=== PATIENT | female | born 1950 | race Caucasian/White ===

== ENCOUNTER → 2023-10-23 07:30 | Outpatient (REF) | payer MEDICARE, OTHER, SELFPAY ==
[2023-10-23 08:03] LABS: Hematocrit 40.4 % (37.0-47.0)
[2023-10-23 08:27] LABS: Protein/creatinine Ratio 0.6; Urine Protein 42 mg/dl
[2023-10-23 09:04] LABS: Albumin 3.8 g/dl (3.5-5.0); Blood Urea Nitrogen 40 mg/dl (7-17); Calcium 9.7 mg/dl (8.4-10.2); Carbon Dioxide 27 mmol/L (22-30); Chloride 100 mmol/L (98-107); Glucose 227 mg/dl (70-99); Phosphorus 4.8 mg/dl (2.5-4.5); Potassium 4.2 mmol/L (3.5-5.1); Sodium 138 mmol/L (135-145); eGFR 31.08
[2023-10-26 10:40] LABS: Intact PTH 112.1 pg/ml (13.6-85.8)
== END ==
LOC: REG 07:30
PROVIDERS: ATTENDING PHYSICIAN Internal Medicine Gastroenterology; FAMILY PHYSICIAN Family Medicine
DX: D50.8 Other iron deficiency anemias (principal); Z87.448 Personal history of other diseases of urinary system; N28.9 Disorder of kidney and ureter, unspecified; I10 Essential (primary) hypertension; D50.9 Iron deficiency anemia, unspecified
CPT/HCPCS: 36415; 80069; 82570; 83970; 84156; 85014; 85018

== ENCOUNTER → 2023-11-11 07:22 | Outpatient (REF) | payer MEDICARE, OTHER, SELFPAY ==
[2023-11-11 07:53] LABS: Hemoglobin 14.6 g/dL (12.0-16.0)
== END ==
LOC: REG 07:22
PROVIDERS: ATTENDING PHYSICIAN Internal Medicine Gastroenterology; FAMILY PHYSICIAN Family Medicine
DX: D50.8 Other iron deficiency anemias (principal)
CPT/HCPCS: 36415; 85018

== ENCOUNTER → 2023-12-17 07:32 | Outpatient (REF) | payer MEDICARE, OTHER, SELFPAY ==
[2023-12-17 08:03] LABS: % Basophils 0.6 % (0-2); % Eosinophils 3.5 % (0-6); % Immature Granulocytes 0.3 % (0-0.5); % Lymphocytes 15.3 % (20.5-51.1); % Neutrophils 71.3 % (42.2-75.2); Absolute Eosinophils 0.3 10^3/uL (0-0.7); Absolute Lymphocytes 1.1 10^3/uL (1.2-3.4); Absolute Monocytes 0.6 10^3/uL (0.1-0.6); Absolute Neutrophils 5.1 10^3/uL (1.4-6.5); Hematocrit 42.6 % (37.0-47.0); Hemoglobin 13.8 g/dL (12.0-16.0); Mean Corp Hgb Conc. 32.4 g/dL (33.0-37.0); Mean Corpuscular Hgb 32.1 pg (27.0-31.0); Mean Corpuscular Volume 99.1 fL (81.0-99.0); Mean Platelet Volume 9.2 fL (7.4-10.4); Nucleated Red Blood Cells % 0 %; Platelet Count 221 10^3/uL (130-400); Red Cell Dist. Width 14.2 % (11.5-14.5); White Blood Cell Count 7.1 10^3/uL (4.8-10.8)
[2023-12-17 08:44] LABS: Iron 92 ug/dl (37-170)
[2023-12-17 08:54] LABS: Percent Saturation 22 % (20-50); Total Iron Binding Capacity 417 ug/dl (265-497)
[2023-12-17 09:18] LABS: Ferritin 76.8 ng/ml (11.1-264.0)
== END ==
LOC: REG 07:32
PROVIDERS: ATTENDING PHYSICIAN Internal Medicine Hematology & Oncology; FAMILY PHYSICIAN Family Medicine
DX: C50.512 Malignant neoplasm of lower-outer quadrant of left female breast (principal); Z79.811 Long term (current) use of aromatase inhibitors; D50.9 Iron deficiency anemia, unspecified; N18.30 Chronic kidney disease, stage 3 unspecified
CPT/HCPCS: 36415; 82728; 83540; 83550; 85025

== ENCOUNTER → 2024-04-01 12:37 | Outpatient (REF) | payer MEDICARE, OTHER, SELFPAY | LOC: WDC 12:37 | PROVIDERS: ATTENDING PHYSICIAN Family Medicine Geriatric Medicine; FAMILY PHYSICIAN Family Medicine | DX: Z12.31 Encounter for screening mammogram for malignant neoplasm of breast (principal) | CPT/HCPCS: 77063; 77067 ==

== ENCOUNTER → 2024-05-22 08:15 | Outpatient (REF) | payer MEDICARE, OTHER, SELFPAY ==
[2024-05-22 09:01] LABS: Hematocrit 44.2 % (37.0-47.0); Hemoglobin 14.9 g/dL (12.0-16.0)
[2024-05-22 09:19] LABS: Protein/creatinine Ratio 0.4; Urine Protein 40 mg/dl
[2024-05-22 09:35] LABS: Albumin 4.2 g/dl (3.5-5.0); Blood Urea Nitrogen 35 mg/dl (7-17); Calcium 9.7 mg/dl (8.4-10.2); Carbon Dioxide 30 mmol/L (22-30); Chloride 102 mmol/L (98-107); Glucose 143 mg/dl (70-99); Phosphorus 4.3 mg/dl (2.5-4.5); Potassium 3.6 mmol/L (3.5-5.1); Sodium 143 mmol/L (135-145); eGFR 28.84
[2024-05-23 09:37] LABS: Intact PTH 110.1 pg/ml (13.6-85.8)
== END ==
LOC: REG 08:15
PROVIDERS: ATTENDING PHYSICIAN Specialist; FAMILY PHYSICIAN Family Medicine
DX: I10 Essential (primary) hypertension (principal); N18.9 Chronic kidney disease, unspecified; R80.9 Proteinuria, unspecified
CPT/HCPCS: 36415; 80069; 82570; 83970; 84156; 85014; 85018

== ENCOUNTER → 2024-06-18 08:06 | Outpatient (REF) | payer MEDICARE, OTHER, SELFPAY ==
[2024-06-18 09:22] LABS: Blood Urea Nitrogen 42 mg/dl (7-17); Calcium 9.6 mg/dl (8.4-10.2); Carbon Dioxide 27 mmol/L (22-30); Chloride 104 mmol/L (98-107); Glucose 154 mg/dl (70-99); Potassium 4.4 mmol/L (3.5-5.1); Sodium 142 mmol/L (135-145); eGFR 30.89
== END ==
LOC: REG 08:06
PROVIDERS: ATTENDING PHYSICIAN Specialist; FAMILY PHYSICIAN Family Medicine
DX: N18.32 Chronic kidney disease, stage 3b (principal)
CPT/HCPCS: 36415; 80048

== ENCOUNTER → 2024-09-19 07:10 | Outpatient (REF) | payer MEDICARE, OTHER, SELFPAY | LOC: RCS 07:10 | PROVIDERS: ATTENDING PHYSICIAN Internal Medicine Cardiovascular Disease; FAMILY PHYSICIAN Family Medicine | DX: Z95.2 Presence of prosthetic heart valve (principal) | CPT/HCPCS: 93306 ==

== ENCOUNTER → 2024-10-14 08:04 | Outpatient (REF) | payer MEDICARE, OTHER, SELFPAY ==
[2024-10-14 09:55] LABS: NT-proBNP 4020 pg/ml
[2024-10-14 12:37] LABS: Blood Urea Nitrogen 52 mg/dl (7-17); Calcium 9.3 mg/dl (8.4-10.2); Carbon Dioxide 24 mmol/L (22-30); Chloride 104 mmol/L (98-107); Glucose 157 mg/dl (70-99); Potassium 4.4 mmol/L (3.5-5.1); Sodium 143 mmol/L (135-145); eGFR 21.49
== END ==
LOC: REG 08:04
PROVIDERS: ATTENDING PHYSICIAN Specialist; FAMILY PHYSICIAN Family Medicine
DX: I10 Essential (primary) hypertension (principal); I48.0 Paroxysmal atrial fibrillation; N28.9 Disorder of kidney and ureter, unspecified
CPT/HCPCS: 36415; 80048; 83880

== ENCOUNTER → 2024-10-20 08:35 | Outpatient (REF) | payer MEDICARE, OTHER, SELFPAY ==
[2024-10-20 10:06] LABS: Blood Urea Nitrogen 52 mg/dl (7-17); Calcium 9.5 mg/dl (8.4-10.2); Carbon Dioxide 28 mmol/L (22-30); Chloride 103 mmol/L (98-107); Glucose 97 mg/dl (70-99); Potassium 4.3 mmol/L (3.5-5.1); Sodium 141 mmol/L (135-145); eGFR 25.41
[2024-10-20 10:15] LABS: NT-proBNP 3710 pg/ml
== END ==
LOC: REG 08:35
PROVIDERS: ATTENDING PHYSICIAN Specialist; FAMILY PHYSICIAN Family Medicine
DX: R80.9 Proteinuria, unspecified (principal); Z87.448 Personal history of other diseases of urinary system; N28.9 Disorder of kidney and ureter, unspecified; I10 Essential (primary) hypertension; E78.2 Mixed hyperlipidemia
CPT/HCPCS: 36415; 80048; 83880

== ENCOUNTER → 2024-10-28 07:29 | Outpatient (REF) | payer MEDICARE, OTHER, SELFPAY ==
[2024-10-28 09:08] LABS: Urine Albumin 1+ (Neg - Trace); Urine Bilirubin Negative (Negative); Urine Character Clear (Clear); Urine Color Yellow; Urine Glucose 4+ (Negative); Urine Ketone Negative (Negative); Urine Leukocyte 1+ (Negative); Urine Nitrite Negative (Negative); Urine Occult Blood Negative (Negative); Urine Urobilinogen Negative (Neg - 1+); Urine pH 6.5 (5.0-9.0)
[2024-10-28 09:11] LABS: Hematocrit 47.9 % (37.0-47.0)
[2024-10-28 09:22] LABS: Urine Squamous Cell 0-2 /LPF (Few)
[2024-10-28 09:23] LABS: Urine Red Blood Cell 0-2 /HPF (0-2); Urine White Cell 0-2 /HPF (0-5)
[2024-10-28 09:40] LABS: NT-proBNP 4360 pg/ml
[2024-10-28 10:20] LABS: Blood Urea Nitrogen 67 mg/dl (7-17); Carbon Dioxide 33 mmol/L (22-30); Chloride 89 mmol/L (98-107); Glucose 225 mg/dl (70-99); Phosphorus 4.9 mg/dl (2.5-4.5); Potassium 3.5 mmol/L (3.5-5.1); Sodium 136 mmol/L (135-145); eGFR 18.55
[2024-10-28 11:19] LABS: Protein/creatinine Ratio 0.6; Urine Protein 26 mg/dl
[2024-10-28 11:21] LABS: Microalbumin, Random Urine 7.7 mg/dl (0.6-1.7); Microalbumin/creatinine Ratio 170.7 mg/g
== END ==
LOC: REG 07:29
PROVIDERS: ATTENDING PHYSICIAN Specialist; FAMILY PHYSICIAN Family Medicine
DX: I13.10 Hypertensive heart and chronic kidney disease without heart failure, with stage 1 through stage 4 chronic kidney disease, or unspecified chronic kidney disease (principal); R60.1 Generalized edema; N18.32 Chronic kidney disease, stage 3b
CPT/HCPCS: 36415; 80069; 81003; 81015; 82043; 82570; 83880; 84156; 85014

== ENCOUNTER → 2024-11-16 08:16 | Outpatient (REF) | payer MEDICARE, OTHER, SELFPAY ==
[2024-11-16 09:43] LABS: NT-proBNP 6600 pg/ml
[2024-11-16 10:44] LABS: Albumin 4.8 g/dl (3.5-5.0); Blood Urea Nitrogen 108 mg/dl (7-17); Calcium 11.8 mg/dl (8.4-10.2); Carbon Dioxide 37 mmol/L (22-30); Chloride 78 mmol/L (98-107); Glucose 254 mg/dl (70-99); Magnesium 2.7 mg/dl (1.6-2.3); Phosphorus 4.2 mg/dl (2.5-4.5); Potassium 2.2 mmol/L (3.5-5.1); Sodium 134 mmol/L (135-145); eGFR 15.62
== END ==
LOC: REG 08:16
PROVIDERS: ATTENDING PHYSICIAN Specialist; FAMILY PHYSICIAN Family Medicine
DX: R80.9 Proteinuria, unspecified (principal); N28.9 Disorder of kidney and ureter, unspecified; Z87.448 Personal history of other diseases of urinary system
CPT/HCPCS: 36415; 80069; 83735; 83880

== ENCOUNTER → 2024-11-18 07:14 | Outpatient (REF) | payer MEDICARE, OTHER, SELFPAY ==
[2024-11-18 08:26] LABS: Albumin 4.4 g/dl (3.5-5.0); Blood Urea Nitrogen 99 mg/dl (7-17); Calcium 11.2 mg/dl (8.4-10.2); Chloride 84 mmol/L (98-107); Glucose 319 mg/dl (70-99); Potassium 3.1 mmol/L (3.5-5.1); Sodium 138 mmol/L (135-145); eGFR 16.27
[2024-11-18 08:35] LABS: Carbon Dioxide 36 mmol/L (22-30)
[2024-11-18 09:07] LABS: Phosphorus 4.1 mg/dl (2.5-4.5)
== END ==
LOC: REG 07:14
PROVIDERS: ATTENDING PHYSICIAN Specialist; FAMILY PHYSICIAN Family Medicine
DX: I10 Essential (primary) hypertension (principal); N18.32 Chronic kidney disease, stage 3b
CPT/HCPCS: 36415; 80069

== ENCOUNTER → 2024-11-25 14:20 | Outpatient (REF) | payer MEDICARE, OTHER, SELFPAY | LOC: RAD 14:20 | PROVIDERS: ATTENDING PHYSICIAN Internal Medicine Hematology & Oncology; FAMILY PHYSICIAN Family Medicine | DX: C50.512 Malignant neoplasm of lower-outer quadrant of left female breast (principal); Z79.811 Long term (current) use of aromatase inhibitors; D50.9 Iron deficiency anemia, unspecified; N18.30 Chronic kidney disease, stage 3 unspecified; Z78.0 Asymptomatic menopausal state | CPT/HCPCS: 77080 ==

== ENCOUNTER → 2024-11-27 08:06 | Outpatient (REF) | payer MEDICARE, OTHER, SELFPAY ==
[2024-11-27 09:20] LABS: % Basophils 0.4 % (0-2); % Eosinophils 2.6 % (0-6); % Immature Granulocytes 0.5 % (0-0.5); % Lymphocytes 9.6 % (20.5-51.1); % Monocytes 8.5 % (1.7-9.3); % Neutrophils 78.4 % (42.2-75.2); Absolute Eosinophils 0.2 10^3/uL (0-0.7); Absolute Lymphocytes 0.7 10^3/uL (1.2-3.4); Absolute Monocytes 0.6 10^3/uL (0.1-0.6); Absolute Neutrophils 5.8 10^3/uL (1.4-6.5); Hematocrit 45.8 % (37.0-47.0); Mean Corp Hgb Conc. 32.8 g/dL (33.0-37.0); Mean Corpuscular Volume 100.9 fL (81.0-99.0); Mean Platelet Volume 10.2 fL (7.4-10.4); Nucleated Red Blood Cells % 0.3 %; Platelet Count 185 10^3/uL (130-400); Red Blood Cell Count 4.54 10^6/uL (4.20-5.40); White Blood Cell Count 7.4 10^3/uL (4.8-10.8)
[2024-11-27 09:54] LABS: Blood Urea Nitrogen 39 mg/dl (7-17); Calcium 9.1 mg/dl (8.4-10.2); Carbon Dioxide 22 mmol/L (22-30); Chloride 104 mmol/L (98-107); Glucose 133 mg/dl (70-99); Iron 104 ug/dl (37-170); Magnesium 2.2 mg/dl (1.6-2.3); Potassium 3.9 mmol/L (3.5-5.1); Sodium 139 mmol/L (135-145); eGFR 27.03
[2024-11-27 10:03] LABS: Percent Saturation 28 % (20-50); Total Iron Binding Capacity 365 ug/dl (265-497)
== END ==
LOC: REG 08:06
PROVIDERS: ATTENDING PHYSICIAN Internal Medicine Hematology & Oncology; FAMILY PHYSICIAN Family Medicine; REFERRING PHYSICIAN Specialist
DX: N18.32 Chronic kidney disease, stage 3b (principal); Z87.448 Personal history of other diseases of urinary system; R80.9 Proteinuria, unspecified; N28.9 Disorder of kidney and ureter, unspecified; I10 Essential (primary) hypertension; C50.512 Malignant neoplasm of lower-outer quadrant of left female breast; Z79.811 Long term (current) use of aromatase inhibitors; D50.9 Iron deficiency anemia, unspecified; N18.30 Chronic kidney disease, stage 3 unspecified
CPT/HCPCS: 36415; 80048; 82728; 83540; 83550; 83735; 85025

== ENCOUNTER → 2024-12-02 11:23 | Outpatient (REF) | payer MEDICARE, OTHER, SELFPAY ==
[2024-12-02 12:32] LABS: Blood Urea Nitrogen 30 mg/dl (7-17); Calcium 9.4 mg/dl (8.4-10.2); Carbon Dioxide 27 mmol/L (22-30); Chloride 102 mmol/L (98-107); Glucose 200 mg/dl (70-99); Potassium 4.3 mmol/L (3.5-5.1); Sodium 139 mmol/L (135-145); eGFR 28.84
[2024-12-02 12:44] LABS: NT-proBNP 5540 pg/ml
== END ==
LOC: REG 11:23
PROVIDERS: ATTENDING PHYSICIAN Specialist; FAMILY PHYSICIAN Family Medicine
DX: R80.9 Proteinuria, unspecified (principal); Z87.448 Personal history of other diseases of urinary system; N28.9 Disorder of kidney and ureter, unspecified; I10 Essential (primary) hypertension
CPT/HCPCS: 36415; 80048; 83735; 83880

== ENCOUNTER → 2024-12-21 08:03 | Outpatient (REF) | payer MEDICARE, OTHER, SELFPAY ==
[2024-12-21 09:05] LABS: Hematocrit 49.5 % (37.0-47.0); Hemoglobin 16.5 g/dL (12.0-16.0)
[2024-12-21 09:49] LABS: Protein/creatinine Ratio 0.3; Urine Protein 22 mg/dl
[2024-12-21 09:53] LABS: Magnesium 2.5 mg/dl (1.6-2.3)
[2024-12-21 09:58] LABS: NT-proBNP 3780 pg/ml
[2024-12-21 10:59] LABS: Blood Urea Nitrogen 53 mg/dl (7-17); Calcium 10.1 mg/dl (8.4-10.2); Carbon Dioxide 33 mmol/L (22-30); Chloride 91 mmol/L (98-107); Glucose 243 mg/dl (70-99); Potassium 3.4 mmol/L (3.5-5.1); Sodium 140 mmol/L (135-145); eGFR 21.49
== END ==
LOC: REG 08:03
PROVIDERS: ATTENDING PHYSICIAN Specialist; FAMILY PHYSICIAN Family Medicine
DX: I13.10 Hypertensive heart and chronic kidney disease without heart failure, with stage 1 through stage 4 chronic kidney disease, or unspecified chronic kidney disease (principal)
CPT/HCPCS: 36415; 80048; 82570; 83735; 83880; 84156; 85014; 85018

== ENCOUNTER → 2025-01-05 11:13 | Outpatient (REF) | payer MEDICARE, OTHER, SELFPAY ==
[2025-01-05 12:50] LABS: NT-proBNP 5320 pg/ml
[2025-01-05 13:58] LABS: Blood Urea Nitrogen 30 mg/dl (7-17); Calcium 9.6 mg/dl (8.4-10.2); Carbon Dioxide 27 mmol/L (22-30); Chloride 104 mmol/L (98-107); Glucose 257 mg/dl (70-99); Potassium 3.6 mmol/L (3.5-5.1); Sodium 143 mmol/L (135-145); eGFR 27.03
== END ==
LOC: REG 11:13
PROVIDERS: ATTENDING PHYSICIAN Specialist; FAMILY PHYSICIAN Family Medicine
DX: R80.9 Proteinuria, unspecified (principal); N28.9 Disorder of kidney and ureter, unspecified; I10 Essential (primary) hypertension; N17.9 Acute kidney failure, unspecified
CPT/HCPCS: 36415; 80048; 83880

== ENCOUNTER → 2025-01-25 13:18 | Outpatient (REF) | payer MEDICARE, OTHER, SELFPAY ==
[2025-01-25 14:13] LABS: Hemoglobin 15.2 g/dL (12.0-16.0)
[2025-01-25 14:32] LABS: Magnesium 2.5 mg/dl (1.6-2.3)
[2025-01-25 14:41] LABS: NT-proBNP 4130 pg/ml
[2025-01-25 14:43] LABS: Protein/creatinine Ratio 0.3; Urine Protein 35 mg/dl
[2025-01-26 11:22] LABS: Blood Urea Nitrogen 34 mg/dl (7-17); Calcium 10.2 mg/dl (8.4-10.2); Carbon Dioxide 25 mmol/L (22-30); Chloride 100 mmol/L (98-107); Glucose 99 mg/dl (70-99); Potassium 3.4 mmol/L (3.5-5.1); Sodium 143 mmol/L (135-145); eGFR 27.03
== END ==
LOC: REG 13:18
PROVIDERS: ATTENDING PHYSICIAN Specialist; FAMILY PHYSICIAN Family Medicine
DX: I13.10 Hypertensive heart and chronic kidney disease without heart failure, with stage 1 through stage 4 chronic kidney disease, or unspecified chronic kidney disease (principal); Z95.2 Presence of prosthetic heart valve
CPT/HCPCS: 36415; 80048; 82570; 83735; 83880; 84156; 85014; 85018

== ENCOUNTER → 2025-03-16 13:31 | Outpatient (REF) | payer MEDICARE, OTHER, SELFPAY ==
[2025-03-16 14:54] LABS: Blood Urea Nitrogen 45 mg/dl (7-17); Calcium 9.8 mg/dl (8.4-10.2); Carbon Dioxide 33 mmol/L (22-30); Chloride 96 mmol/L (98-107); Glucose 230 mg/dl (70-99); Potassium 3.3 mmol/L (3.5-5.1); Sodium 140 mmol/L (135-145); eGFR 21.49
== END ==
LOC: REG 13:31
PROVIDERS: ATTENDING PHYSICIAN Specialist; FAMILY PHYSICIAN Family Medicine
DX: I13.0 Hypertensive heart and chronic kidney disease with heart failure and stage 1 through stage 4 chronic kidney disease, or unspecified chronic kidney disease (principal)
CPT/HCPCS: 36415; 80048

== ENCOUNTER → 2025-03-30 13:23 | Outpatient (REF) | payer MEDICARE, OTHER, SELFPAY ==
[2025-03-30 15:16] LABS: Blood Urea Nitrogen 36 mg/dl (7-17); Calcium 9.8 mg/dl (8.4-10.2); Carbon Dioxide 30 mmol/L (22-30); Chloride 104 mmol/L (98-107); Glucose 99 mg/dl (70-99); Potassium 3.4 mmol/L (3.5-5.1); Sodium 142 mmol/L (135-145); eGFR 22.67
== END ==
LOC: REG 13:23
PROVIDERS: ATTENDING PHYSICIAN Specialist; FAMILY PHYSICIAN Family Medicine
DX: N18.32 Chronic kidney disease, stage 3b (principal); I10 Essential (primary) hypertension; R60.1 Generalized edema; I50.33 Acute on chronic diastolic (congestive) heart failure
CPT/HCPCS: 36415; 80048; 83880

== ENCOUNTER → 2025-04-02 08:05 | Outpatient (REF) | payer MEDICARE, OTHER, SELFPAY | LOC: WDC 08:05 | PROVIDERS: ATTENDING PHYSICIAN Family Medicine Geriatric Medicine; FAMILY PHYSICIAN Family Medicine | DX: Z12.31 Encounter for screening mammogram for malignant neoplasm of breast (principal) | CPT/HCPCS: 77063; 77067 ==

== ENCOUNTER → 2025-04-15 09:27 | Outpatient (REF) | payer MEDICARE, OTHER, SELFPAY ==
[2025-04-15 11:31] LABS: Blood Urea Nitrogen 75 mg/dl (7-17); Calcium 9.8 mg/dl (8.4-10.2); Carbon Dioxide 34 mmol/L (22-30); Chloride 90 mmol/L (98-107); Glucose 201 mg/dl (70-99); Magnesium 2.6 mg/dl (1.6-2.3); Potassium 2.7 mmol/L (3.5-5.1); Sodium 138 mmol/L (135-145); eGFR 17.73
== END ==
LOC: REG 09:27
PROVIDERS: ATTENDING PHYSICIAN Specialist; FAMILY PHYSICIAN Family Medicine
DX: I13.10 Hypertensive heart and chronic kidney disease without heart failure, with stage 1 through stage 4 chronic kidney disease, or unspecified chronic kidney disease (principal)
CPT/HCPCS: 36415; 80048; 83735; 83880

== ENCOUNTER → 2025-04-23 11:22 | Outpatient (REF) | payer MEDICARE, OTHER, SELFPAY ==
[2025-04-23 13:31] LABS: Blood Urea Nitrogen 79 mg/dl (7-17); Calcium 10.2 mg/dl (8.4-10.2); Carbon Dioxide 37 mmol/L (22-30); Chloride 90 mmol/L (98-107); Glucose 221 mg/dl (70-99); Potassium 2.8 mmol/L (3.5-5.1); Sodium 138 mmol/L (135-145); eGFR 19.32
[2025-04-23 13:59] LABS: Magnesium 2.6 mg/dl (1.6-2.3)
== END ==
LOC: REG 11:22
PROVIDERS: ATTENDING PHYSICIAN Specialist; FAMILY PHYSICIAN Family Medicine
DX: I10 Essential (primary) hypertension (principal); R80.9 Proteinuria, unspecified; N28.9 Disorder of kidney and ureter, unspecified; Z87.448 Personal history of other diseases of urinary system
CPT/HCPCS: 36415; 80048; 83735

== ENCOUNTER → 2025-04-29 13:13 | Outpatient (REF) | payer MEDICARE, OTHER, SELFPAY ==
[2025-04-29 14:49] LABS: Blood Urea Nitrogen 68 mg/dl (7-17); Calcium 9.8 mg/dl (8.4-10.2); Carbon Dioxide 37 mmol/L (22-30); Chloride 88 mmol/L (98-107); Glucose 282 mg/dl (70-99); Magnesium 2.5 mg/dl (1.6-2.3); Potassium 2.7 mmol/L (3.5-5.1); Sodium 138 mmol/L (135-145); eGFR 20.29
== END ==
LOC: REG 13:13
PROVIDERS: ATTENDING PHYSICIAN Specialist; FAMILY PHYSICIAN Family Medicine
DX: I10 Essential (primary) hypertension (principal); E78.2 Mixed hyperlipidemia; Z87.448 Personal history of other diseases of urinary system
CPT/HCPCS: 36415; 80048; 83735

== ENCOUNTER → 2025-05-06 10:03 | Outpatient (REF) | payer MEDICARE, OTHER, SELFPAY ==
[2025-05-06 11:08] LABS: Blood Urea Nitrogen 65 mg/dl (7-17); Calcium 9.8 mg/dl (8.4-10.2); Carbon Dioxide 34 mmol/L (22-30); Chloride 91 mmol/L (98-107); Glucose 237 mg/dl (70-99); Magnesium 2.4 mg/dl (1.6-2.3); Potassium 3.1 mmol/L (3.5-5.1); Sodium 137 mmol/L (135-145); eGFR 20.29
== END ==
LOC: REG 10:03
PROVIDERS: ATTENDING PHYSICIAN Specialist
DX: I10 Essential (primary) hypertension (principal); E78.2 Mixed hyperlipidemia; R80.9 Proteinuria, unspecified; N28.9 Disorder of kidney and ureter, unspecified; Z87.448 Personal history of other diseases of urinary system
CPT/HCPCS: 36415; 80048; 83735

== ENCOUNTER → 2025-05-11 09:23 | Outpatient (REF) | payer MEDICARE, OTHER, SELFPAY ==
[2025-05-11 10:20] LABS: Blood Urea Nitrogen 53 mg/dl (7-17); Calcium 10.2 mg/dl (8.4-10.2); Carbon Dioxide 29 mmol/L (22-30); Chloride 99 mmol/L (98-107); Glucose 266 mg/dl (70-99); Potassium 4.9 mmol/L (3.5-5.1); Sodium 138 mmol/L (135-145); eGFR 22.53
== END ==
LOC: REG 09:23
PROVIDERS: ATTENDING PHYSICIAN Specialist; FAMILY PHYSICIAN Family Medicine
DX: N18.32 Chronic kidney disease, stage 3b (principal); I10 Essential (primary) hypertension; E87.6 Hypokalemia
CPT/HCPCS: 36415; 80048

== ENCOUNTER 2025-05-17 22:57 | Emergency (ER) | payer MEDICARE, OTHER, SELFPAY ==
[2025-05-17 23:01] VITALS: BP 111/74
[2025-05-17 23:38] LABS: Hematocrit 44.6 % (37.0-47.0); Hemoglobin 15.1 g/dL (12.0-16.0); Mean Corp Hgb Conc. 33.9 g/dL (33.0-37.0); Mean Corpuscular Volume 98.9 fL (81.0-99.0); Nucleated Red Blood Cells % 0.2 %; Platelet Count 216 10^3/uL (130-400); Red Cell Dist. Width 14.9 % (11.5-14.5)
[2025-05-18 00:12] LABS: ALT (SGPT) 33 U/L (0-35); AST (SGOT) 54 U/L (14-36); Albumin 4.1 g/dl (3.5-5.0); Alkaline Phosphatase 163 U/L (38-126); Blood Urea Nitrogen 39 mg/dl (7-17); Calcium 9.3 mg/dl (8.4-10.2); Carbon Dioxide 22 mmol/L (22-30); Chloride 100 mmol/L (98-107); Glucose 210 mg/dl (70-99); Lipase 314 U/L (23-300); Potassium 5.8 mmol/L (3.5-5.1); Sodium 131 mmol/L (135-145); Total Protein 7.6 g/dl (6.3-8.2); eGFR 23.82
[2025-05-18 01:21] VITALS: BMI 36.9
[2025-05-18 01:24] VITALS: BP 107/88
[2025-05-18] MEDS: TYLENOL 1000 MG PO (02:06)
[2025-05-18 02:16] LABS: Urine Character Clear (Clear)
[2025-05-18 02:34] LABS: Urine Red Blood Cell 0-2 /HPF (0-2); Urine White Cell 0-2 /HPF (0-5)
[2025-05-18 02:52] LABS: Glucose - Point of Care 210 mg/dl (70-99)
[2025-05-18] MEDS: LANTUS 0.1 UNITS SC (03:21)
--- NOTE | 2025-05-18 03:44 | ED.GENMED ---
History of Present Illness
General
Chief Complaint: Abdominal Pain
Source: patient and spouse
Exam Limitations: none
Time Seen by Provider: 05/18/25 01:20
Nursing documentation reviewed up to this point in time: agreed with
History of Present Illness
History of Present Illness:
This is a 75-year-old female who resides at home with her . She has a relevant medical history that includes chronic kidney disease, diabetes mellitus on insulin, aortic stenosis status post TAVR 2018, history of A-fib status post Watchman
May 2023. History of CHF, hypertension, hyperlipidemia. Additionally, she has a history of ER-positive breast cancer and underwent left breast lumpectomy 3 years ago. Maintained on letrozole.
The patient presents with complaints of lower abdominal pain that began on Saturday, 1.5 days ago, occurring continuously from morning through night. The pain is described as diffuse lower abdomen, also radiating to the lower back. She has experienced
this constant pain since Saturday. Accompanying symptoms included chills on Saturday night, but no fever, nausea, or vomiting was reported. She has also experienced diarrhea since Saturday, with three to four loose stools, and continued similar bowel
movements into the subsequent day, Saturday. There is no report of blood in the stools. No issues with urination or recent infections were noted. She took Tylenol twice today with last dose around 12 noon along with a dose of Imodium. Since taking
Imodium diarrhea has resolved.
Back pain is worse with movement especially with bending over, rolling over, worse with lying supine, improves when lying on her side. She denies recent injury nor fall. Back pain does not radiate down her legs, no weakness or numbness.
No recent travel nor recent antibiotic use.
No close contacts with similar symptoms.
Her only other previous abdominal surgery was tubal ligation.
Has been eating and drinking normally throughout the day without increased pain.
She has history of chronic kidney disease, follows with Dr. Payton. Potassium has been persistently running low thus she was started on potassium supplement, currently at 3 tablets 3 times a day.
Past History
Past History
ED Past Medical History: Arrthythmia (Atrial fibrillation), CAD, Cancer (Left breast cancer status post lumpectomy 2021), HTN, Hypercholesterolemia, IDDM, Valvular disease (, MR) and Other (Vertigo, Diverticulitis, hemorrhoids, Aortic stenosis, )
ED Past Surgical History: Cardiac (stent, TAVR, cardioversions, Ablation, Watchman), Gynecological (tubal, ), Orthopedic (Right foot surgery, ) and Other (Rectal fissure, )
Social History
Tobacco: Non-smoker
Alcohol: None
Drug: None
Personal:
Living: with family
Employment: Retired
Family History
Family History: Other (Noncontributory)
Phy Exam
Physical Exam
Physical Exam:
GENERAL: 75-year-old woman appears her stated age, bright and alert, pleasant, appears in no acute distress. is accompanying.
EYE: anicteric
NECK: Supple, nontender, no meningismus, no significant adenopathy.
ENT: oral mucosa is moist. No rhinorrhea.
CARDIAC: Irregularly irregular, 2/6 holosystolic murmur left sternal border.
LUNGS: Clear breath sounds bilaterally, no acute respiratory distress, no wheezes/rales/rhonchi
ABDOMEN: Rotund, soft, nondistended, without focal tenderness, no r/g, no cvat. normoactive BS.
BACK: Mild paravertebral tenderness to palpation lower thoracic as well as bilateral lumbar region. No midline bony tenderness.
NEUROLOGICAL: Alert and oriented x3, no focal neuro deficits. Gait is steady.
SKIN: Warm and dry, normal color, skin intact. No rash.
MUSCULOSKELETAL: No C/C/E. peripheral pulses are full and equal b/l. No palpable tenderness.
PSYCH: Normal and appropriate interaction.
Sepsis
Sepsis Screening
Sepsis Assessment: Sepsis Ruled Out
Sepsis Screen
Sepsis Screen: Sepsis Ruled Out
Date: 05/18/25
Time: 04:00
Course
Orders/Labs/Results
Orders:
Orders
05/17/25 23:05
Urinalysis Reflex To Culture Urgent
Date Specimen was Collected: 05/17/25
Time Specimen was Collected: 23:06
05/17/25 23:31
Complete Blood Count/With Diff Urgent
Comprehensive Metabolic Panel Urgent
Lipase Urgent
05/18/25 01:59
CT Abd/pel Without Iv Or Oral Urgent
Comment:
Reason For Exam: lower abd pain, low back pain x 2 d
Acetaminophen [Tylenol] 1,000 mg PO NOW STA
05/18/25 02:01
Electrocardiogram (*1) Urgent
Reason for Study: Abdominal Pain
EKG- Treatment ONCE
05/18/25 02:09
Urine Microscopic Reflex Cult Urgent
05/18/25 03:00
Insulin Glargine Lantus [Lantus] 10 units Subcutaneous Insulin Syringe [Syringe-Insulin] 0 unit SC ONCE
Abnormal Lab Results
05/17/25 05/18/25 05/18/25
23:31 02:09 02:50
WBC 12.2 H 10^3/uL
(4.8-10.8)
MCH 33.5 H pg
(27.0-31.0)
RDW 14.9 H %
(11.5-14.5)
Abs Immat Gran (auto) 0.1 H 10^3/uL
(0-0.05)
Absolute Neuts (auto) 10.0 H 10^3/uL
(1.4-6.5)
Absolute Lymphs (auto) 0.7 L 10^3/uL
(1.2-3.4)
Absolute Monos (auto) 1.4 H 10^3/uL
(0.1-0.6)
Immature Gran % 0.6 H %
(0-0.5)
Neutrophils % 81.7 H %
(42.2-75.2)
Lymphocytes % 5.6 L %
(20.5-51.1)
Monocytes % 11.8 H %
(1.7-9.3)
Sodium 131 L mmol/L
(135-145)
Potassium 5.8 H mmol/L
(3.5-5.1)
BUN 39 H mg/dl
(7-17)
Creatinine 2.1 H mg/dL
(0.6-1.0)
Glucose 210 H mg/dl
(70-99)
Total Bilirubin 1.7 H mg/dl
(0.2-1.3)
AST 54 H U/L
(14-36)
Alkaline Phosphatase 163 H U/L
(38-126)
Lipase 314 H U/L
(23-300)
Ur Occult Blood Reflex 1+ A
(Negative)
Urine Bacteria (Reflex) Few A
(Negative)
Urine Glucose 4+ A
(Negative)
Urine Albumin (Reflex) 2+ A
(Neg - Trace)
POC Glucose 210 H mg/dl
(70-99)
05/17/25 23:31
05/17/25 23:31
Vital Signs
Initial and Last Documented VS:
Initial Vital Signs
Temp Pulse Resp BP Pulse Ox
97.3 F 150 16 111/74 93
05/17/25 23:01 05/17/25 23:01 05/17/25 23:01 05/17/25 23:01 05/17/25 23:01
Last Documented Vital Signs
Temp Pulse Resp BP Pulse Ox
97.3 F 104 16 107/88 94
05/17/25 23:01 05/18/25 01:24 05/18/25 01:24 05/18/25 01:24 05/18/25 03:56
MDM/Problems Addressed
Differential Diagnosis Includes:
The Differential Diagnosis includes, in no particular order and is not limited to:
- Gastroenteritis
- Colitis
- Kidney stone/ureteric stone
- Urinary tract infection
- Diverticulitis
- Cholecystitis
- Pancreatitis
- Small bowel obstruction
- Mesenteric ischemia
- Pyelonephritis
- Irritable bowel syndrome
- Viral gastroenteritis
- Low back strain
MDM/Problems Addressed:
Acute Problems:
- Abdominal pain
- Diarrhea
- Low back pain
Chronic Problems:
- Chronic kidney disease
- Diabetes mellitus
- History of aortic stenosis
- History of atrial fibrillation
Thus far laboratory studies show mildly elevated white blood cell count of 12.2.
Creatinine of 2.1, stable and unchanged from previous but potassium has trended up to 5.8. Likely related to potassium supplementation that was recently initiated.
Lipase minimally elevated, nonspecific. Reassuring that patient has had no upper abdominal pain, no nausea no vomiting.
Will check urinalysis.
Will check CT abdomen pelvis and due to chronic kidney disease will avoid IV contrast.
It is reassuring that abdomen is soft without appreciable tenderness. She does have an element of low back pain that seems worse with movement and this could certainly be musculoskeletal back pain. No radicular signs or symptoms. She is afebrile
and reports no recent fever. The other consideration is ureteric stone/renal colic.
Will trial a dose of Tylenol for pain.
Maintained on insulin glargine 18 units at bedtime.
Will give a dose of insulin glargine but due to dental scheduler dosing we will plan for just 10 units now and recommend patient monitor her blood sugars throughout the day.
Due to elevated potassium we will check EKG.
Chronic conditions affecting care: DM, HTN, Cardiomyopathy, Arrhythmia and Kidney disease
*Radiology
Radiology exam reviewed: radiology read reviewed (CT abdomen pelvis without contrast is overall unremarkable. No acute intra-abdominal pathology. There is note of cholelithiasis without secondary findings to suggest cholecystitis. Moderate DJD of
the spine and pelvis and hips.)
*Pulse Oximetry
SaO2: 94
Oxygen Mode of Delivery: Room air
Patient hypoxic: no
*EKG
Interpreted by ED Provider?: Yes
Comparison EKG: no changes (Unchanged from previous August 2023)
Heart Rate: 106
Rate: tachycardiac
Rhythm: a-fib
[place]: normal axis
Interval: normal QT interval
QRS Pattern: normal QRS
Ischemia: no ischemia
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
Rate: normal and tachycardiac
Interpretation: abnormal
Rhythm: a-fib
*Critical Care Note
Total Time (30-74mins, 75-104mins- exclusive of procedures): Not Applicable
Update Note
Update Note:
04:00
Patient feeling improved after Tylenol.
Resting comfortably.
Abdomen remains soft without appreciable tenderness.
EKG shows atrial fibrillation with mildly rapid ventricular response, heart rate of 106. Overall similar and unchanged from previous EKG August 23, 2023.
Urinalysis is unremarkable. No evidence of UTI.
CT abdomen pelvis shows no acute intra-abdominal pathology. Incidental gallstones but no evidence of cholecystitis. Moderate DJD of the spine pelvis and hips. No evidence of ureteral calculus nor hydronephrosis.
Due to hyperkalemia recommend she hold potassium supplement for today then beginning tomorrow, Saturday, May 20 recommend she resume potassium supplement but only 3 tablets twice daily instead of 3 times daily.
Recommend clear liquids then advance to soft bland foods as tolerated.
Continue Tylenol as needed for pain and may continue Imodium if diarrhea recurs.
Prompt follow-up with PCP as well as dietetic tech.
Return precautions discussed.
ED Attending Note
-
Portions of this chart may have been created with voice recognition software.� Occasional wrong word or��sound alike� substitutions may have occurred due to the inherent limitations of voice recognition software.
Discharge Plan
Departure
Patient Disposition: Home (Routine Discharge)
Date of Disposition: 05/18/25
Time of Disposition: 04:08
Patient with high blood pressure during this ER visit?: No
Condition: Good
Discharge Problem:
Acute diarrhea, Acute bilateral low back pain, Acute hyperkalemia
Instructions: Clear Liquid Diet, Low back pain - ED (DC), Abdominal Pain
Prescriptions:
No Action
pyridoxine (vitamin B6) 50 MG tablet
100 mg PO DAILY
cyanocobalamin (vitamin B-12) [Vitamin B-12] 500 MCG tablet
500 mcg PO DAILY
nitroglycerin 0.4 MG tablet, sublingual
0.4 mg sublingual [id number] PRN (Reason: chest pain) Qty: 25 2RF
multivitamin with folic acid [Tab-A-Pamela] 1 TABLET tablet
1 tab PO DAILY
letrozole 2.5 mg Tablet
2.5 mg PO DAILY
cholecalciferol (vitamin D3) [Vitamin D3] 25 mcg (1,000 unit) Capsule
25 mcg PO DAILY
magnesium oxide 400 mg magnesium Capsule
400 mg PO QPM
coQ10 (ubiquinol) 200 mg Capsule
300 mg PO QPM
red yeast rice 600 mg Tablet
600 mg PO BID
Move Free Ultra [address] 353 mg Capsule
1 cap PO DAILY
calcium carbonate [Calcium 600] 600 mg calcium (1,500 mg) Tablet
600 mg PO DAILY
borage seed oil
1,000 mg PO QPM
ferrous sulfate 325 mg (65 mg iron) tablet
325 mg PO MOWEFR
Eliquis 2.5 mg Tablet
2.5 mg PO BID Qty: 60 3RF
furosemide 40 mg Tablet
40 mg PO DAILY
metoprolol succinate 50 mg Tablet Extended Release 24 Hr
75 mg PO BID Qty: 60 0RF
diltiazem HCl 180 mg Capsule,Extended Release 24hr
180 mg PO BID Qty: 60 0RF
Januvia 25 mg tablet
25 mg PO DAILY Qty: 30 0RF
insulin glargine [Lantus Solostar U-100 Insulin] 300 UNITS/3 ML insulin pen
10 unit SC DAILY Qty: 0 0RF
Referrals:
Katie Iyer MD [Family Provider, Internal Medicine]
Veronica Payton MD [Active, Nephrology] - Call in 1-3 days for appt
Activity Restrictions/Additional Instructions:
Limit diet to clear liquids this morning, slowly advance to soft foods as tolerated.
You can continue Tylenol as needed for pain and can continue Imodium as needed for diarrhea.
Hold potassium tablets today, May 18. You can resume potassium tablets tomorrow, May 19 but decreased dose to 3 tablets twice daily.
Follow-up with your primary care physician as well as dietetic tech this week for recheck.
Interventions
Interventions:
*Risk Screen - Suicide Last Done: 05/17/25 23:01
*General Assessment Last Done: 05/18/25 01:21
*Neglect/Abuse Screening Last Done: 05/17/25 23:01
*ED- Fall Risk Assessment Last Done: 05/17/25 23:01
*ED COVID-19 Vaccine History Last Done: 05/17/25 23:01
YR-Ydrqrk-Ujmhiegcba Assessment Last Done: 05/18/25 01:21
Discharge Date and Time
Print Language: LITHUANIAN
== END 2025-05-18 04:22 | disposition home or self-care (01) ==
LOC: EMR 22:57
PROVIDERS: EMERGENCY PHYSICIAN Emergency Medicine; FAMILY PHYSICIAN Family Medicine
DX: R19.7 Diarrhea, unspecified (principal); M54.50 Low back pain, unspecified; E87.5 Hyperkalemia; I25.10 Atherosclerotic heart disease of native coronary artery without angina pectoris; I42.9 Cardiomyopathy, unspecified; I48.91 Unspecified atrial fibrillation; E11.22 Type 2 diabetes mellitus with diabetic chronic kidney disease; I13.0 Hypertensive heart and chronic kidney disease with heart failure and stage 1 through stage 4 chronic kidney disease, or unspecified chronic kidney disease; N18.9 Chronic kidney disease, unspecified; I50.9 Heart failure, unspecified; E78.00 Pure hypercholesterolemia, unspecified; K80.20 Calculus of gallbladder without cholecystitis without obstruction; M16.0 Bilateral primary osteoarthritis of hip; M47.819 Spondylosis without myelopathy or radiculopathy, site unspecified; Z79.4 Long term (current) use of insulin; Z95.5 Presence of coronary angioplasty implant and graft; Z95.2 Presence of prosthetic heart valve; Z85.3 Personal history of malignant neoplasm of breast; Z79.811 Long term (current) use of aromatase inhibitors
CPT/HCPCS: 99284; 96372; 74176; 80053; 81003; 81015; 82962; 83690; 85025; 93005

== ENCOUNTER 2025-05-20 13:19 | Inpatient (IN) | payer MEDICARE, OTHER, SELFPAY ==
[2025-05-20] VITALS (34 sets, daily range): BP systolic 81–134; BP diastolic 51–117; BMI 38.4
--- NOTE | 2025-05-20 10:36 | ED.GENMED ---
History of Present Illness
<Mauro Watson PA-C - Last Filed: 05/20/25 12:09>
General
Chief Complaint: Dizziness
Source: patient
Exam Limitations: none
Time Seen by Provider: 05/20/25 10:27
History of Present Illness
History of Present Illness:
75-year-old female presents via EMS from home with complaints of weakness and shortness of breath and lightheadedness. She denies chest pain. She has a history of A-fib has a watchman's not anticoagulated. She has a history of insulin-dependent
diabetes, hypertension, aortic stenosis status post TAVR. She was here 5 days ago for lower back pain.
Past History
<GUSTAVO Richmond Last Filed: 05/20/25 12:09>
Past History
ED Past Medical History: Arrthythmia (Atrial fibrillation), CAD, Cancer (Left breast cancer status post lumpectomy 2021), HTN, Hypercholesterolemia, IDDM, Valvular disease (, MR) and Other (Vertigo, Diverticulitis, hemorrhoids, Aortic stenosis, )
ED Past Surgical History: Cardiac (stent, TAVR, cardioversions, Ablation, Watchman), Gynecological (tubal, ), Orthopedic (Right foot surgery, ) and Other (Rectal fissure, )
Social History
Tobacco: Non-smoker
Alcohol: None
Drug: None
Personal:
Living: with family
Employment: Retired
Family History
Family History: Other (Noncontributory)
Phy Exam
<Mauro Watson PA-C - Last Filed: 05/20/25 12:09>
Physical Exam
Physical Exam:
General: Well-developed female with increased work of breathing HEENT: Normal cephalic atraumatic
Heart: Tachycardic and regular
Lungs: Clear no obvious wheeze
Abdomen is soft nontender
Extremities: No edema or cyanosis
Skin is warm no rash
Sepsis
<Mauro Watson PA-C - Last Filed: 05/20/25 12:09>
Sepsis Screening
Sepsis Assessment: Sepsis
Sepsis Screen
Sepsis Screen: Sepsis
Date: 05/20/25
Time: 12:09
<Jonathan Sifuentes MD - Last Filed: 05/20/25 12:25>
Sepsis Screen
Sepsis Screen: Sepsis
Date: 05/20/25
Time: 12:24
Course
<Mauro Watson PA-C - Last Filed: 05/20/25 12:09>
Orders/Labs/Results
Orders:
Orders
05/20/25 10:30
Electrocardiogram (*1) Urgent
Reason for Study: Other
Other Reason for Exam: Respiratory Distress
Cardiac Monitoring- Treatment ONCE
EKG- Treatment ONCE
CR Chest Portable - 1 View Urgent
Comment:
Reason For Exam: respiratory distress
Reason Study Needs to be Portable: Patient Unstable
Pulse Ox/cont/shift [RESP] Urgent
Quantity: 1
Special Instructions: continuous pulse ox
05/20/25 10:33
Diltiazem 125 mg/125 ml Nss [Cardizem] 125 mg in 125 ml .ROUTE .STK-MED
Diltiazem HCl [Cardizem] 25 mg .ROUTE .STK-MED ONE
05/20/25 10:35
Diltiazem HCl [Cardizem] 10 mg IV NOW STA
05/20/25 10:37
Complete Blood Count/With Diff Urgent
Manual Differential Urgent
05/20/25 10:40
Acetaminophen [Tylenol] 1,000 mg PO NOW STA
05/20/25 10:41
Acetaminophen [Tylenol/Feverall] 325 mg .ROUTE .STK-MED ONE
Acetaminophen [Tylenol/Feverall] 650 mg .ROUTE .STK-MED ONE
05/20/25 10:43
0.9% Sodium Chloride 500 ml [Nss] 500 ml IV BOLUS
05/20/25 10:44
Urinalysis Reflex To Culture Urgent
Date Specimen was Collected: 05/20/25
Time Specimen was Collected: 10:43
Urine Microscopic Reflex Cult Urgent
05/20/25 10:45
Diltiazem 125 mg/125 ml Nss [Cardizem] 125 mg in 125 ml IV PER PROTOCOL
Initial dose in mg/hr, then titrate:: 5
Titrate to keep:: Heart rate 80-100 bpm
Titrate by mg/hr:: 5 mg/hr
Frequency of titrations (minutes):: 15
Maximum dose in mg/hr:: 15
05/20/25 10:49
Diltiazem HCl [Cardizem] 10 mg IV NOW STA
05/20/25 11:03
Blood Culture Q30M
TYRONE Source: Blood/Venous
Specimen Description:
Blood Culture Q30M
T[facility]ONE Source: Blood/Venous
Specimen Description:
05/20/25 11:04
Lactic Acid Q4H
Comment: CANCEL 2nd LACTIC ACID IF 1st LACTIC ACID IS LESS THAN 2
05/20/25 11:05
Piperacillin/Tazo 3.375 Gram [Zosyn] 3.375 gram in 50 ml IV NOW
05/20/25 11:14
Piperacillin/Tazo 3.375 Gram [Zosyn] 3.375 gram in 50 ml .ROUTE .STK-MED
05/20/25 11:15
COVID-19 Antigen Urgent
Source: Nasal Swab
Influenza A+B Rapid Molecular Urgent
TYRONE Source: Nasal Swab
Specimen Description:
Vancomycin [Vancocin] 2,000 mg 0.9% Sodium Chloride 500 ml [Nss] 500 ml IV NOW
05/20/25 11:40
Comprehensive Metabolic Panel Urgent
NT-proBNP Urgent
Troponin I Urgent
05/20/25 12:16
Add On- LAB Urgent
Tests Added?: differential to CBC
05/20/25 12:18
0.9% Sodium Chloride 500 ml [Nss] 500 ml IV BOLUS
05/20/25 12:21
Ehrlichia/Anaplasma by PCR [S] Urgent
Lyme Progressive Urgent
Blood Parasites Urgent
TYRONE Source: Blood/Venous
Specimen Description:
05/20/25 15:00
Lactic Acid Q4H
Comment: CANCEL 2nd LACTIC ACID IF 1st LACTIC ACID IS LESS THAN 2
Abnormal Lab Results
05/20/25 05/20/25 05/20/25
10:37 10:44 11:04
WBC 18.8 H 10^3/uL
(4.8-10.8)
Hgb 16.3 H g/dL
(12.0-16.0)
Hct 47.3 H %
(37.0-47.0)
MCV 99.6 H fL
(81.0-99.0)
MCH 34.3 H pg
(27.0-31.0)
RDW 15.6 H %
(11.5-14.5)
MPV 10.6 H fL
(7.4-10.4)
Sodium
Potassium
Chloride
Carbon Dioxide
BUN
Creatinine
Glucose
Lactic Acid 7.5 H* mmol/L
(0.7-2.0)
Total Bilirubin
AST
Alkaline Phosphatase
Troponin I
Urine Ketones 1+ A
(Negative)
Ur Occult Blood Reflex 3+ A
(Negative)
Urine Bacteria (Reflex) Few A
(Negative)
Urine Glucose 4+ A
(Negative)
Urine Albumin (Reflex) 2+ A
(Neg - Trace)
05/20/25
11:40
WBC
Hgb
Hct
MCV
MCH
RDW
MPV
Sodium 128 L mmol/L
(135-145)
Potassium 5.2 H mmol/L
(3.5-5.1)
Chloride 96 L mmol/L
(98-107)
Carbon Dioxide 14 L* mmol/L
(22-30)
BUN 60 H mg/dl
(7-17)
Creatinine 2.8 H mg/dL
(0.6-1.0)
Glucose 261 H mg/dl
(70-99)
Lactic Acid
Total Bilirubin 2.9 H D mg/dl
(0.2-1.3)
AST 279 H U/L
(14-36)
Alkaline Phosphatase 160 H U/L
(38-126)
Troponin I 0.151 H* ng/ml
Urine Ketones
Ur Occult Blood Reflex
Urine Bacteria (Reflex)
Urine Glucose
Urine Albumin (Reflex)
05/20/25 10:37
05/20/25 11:40
Vital Signs
Initial and Last Documented VS:
Initial Vital Signs
Temp Pulse Resp BP Pulse Ox
102 F H 170 33 102/73 96
05/20/25 10:29 05/20/25 10:29 05/20/25 10:29 05/20/25 10:29 05/20/25 10:29
Last Documented Vital Signs
Temp Pulse Resp BP Pulse Ox
102 F H 151 29 99/79 98
05/20/25 10:29 05/20/25 11:32 05/20/25 11:32 05/20/25 11:32 05/20/25 11:30
<Jonathan Sifuentes MD - Last Filed: 05/20/25 12:25>
Orders/Labs/Results
Orders:
Orders
05/20/25 10:30
Electrocardiogram (*1) Urgent
Reason for Study: Other
Other Reason for Exam: Respiratory Distress
Cardiac Monitoring- Treatment ONCE
EKG- Treatment ONCE
CR Chest Portable - 1 View Urgent
Comment:
Reason For Exam: respiratory distress
Reason Study Needs to be Portable: Patient Unstable
Pulse Ox/cont/shift [RESP] Urgent
Quantity: 1
Special Instructions: continuous pulse ox
05/20/25 10:33
Diltiazem 125 mg/125 ml Nss [Cardizem] 125 mg in 125 ml .ROUTE .STK-MED
Diltiazem HCl [Cardizem] 25 mg .ROUTE .STK-MED ONE
05/20/25 10:35
Diltiazem HCl [Cardizem] 10 mg IV NOW STA
05/20/25 10:37
Complete Blood Count/With Diff Urgent
Manual Differential Urgent
05/20/25 10:40
Acetaminophen [Tylenol] 1,000 mg PO NOW STA
05/20/25 10:41
Acetaminophen [Tylenol/Feverall] 325 mg .ROUTE .STK-MED ONE
Acetaminophen [Tylenol/Feverall] 650 mg .ROUTE .STK-MED ONE
05/20/25 10:43
0.9% Sodium Chloride 500 ml [Nss] 500 ml IV BOLUS
05/20/25 10:44
Urinalysis Reflex To Culture Urgent
Date Specimen was Collected: 05/20/25
Time Specimen was Collected: 10:43
Urine Microscopic Reflex Cult Urgent
05/20/25 10:45
Diltiazem 125 mg/125 ml Nss [Cardizem] 125 mg in 125 ml IV PER PROTOCOL
Initial dose in mg/hr, then titrate:: 5
Titrate to keep:: Heart rate 80-100 bpm
Titrate by mg/hr:: 5 mg/hr
Frequency of titrations (minutes):: 15
Maximum dose in mg/hr:: 15
05/20/25 10:49
Diltiazem HCl [Cardizem] 10 mg IV NOW STA
05/20/25 11:03
Blood Culture Q30M
[facility] Source: Blood/Venous
Specimen Description:
Blood Culture Q30M
[facility] Source: Blood/Venous
Specimen Description:
05/20/25 11:04
Lactic Acid Q4H
Comment: CANCEL 2nd LACTIC ACID IF 1st LACTIC ACID IS LESS THAN 2
05/20/25 11:05
Piperacillin/Tazo 3.375 Gram [Zosyn] 3.375 gram in 50 ml IV NOW
05/20/25 11:14
Piperacillin/Tazo 3.375 Gram [Zosyn] 3.375 gram in 50 ml .ROUTE .STK-MED
05/20/25 11:15
COVID-19 Antigen Urgent
Source: Nasal Swab
Influenza A+B Rapid Molecular Urgent
[facility]ONE Source: Nasal Swab
Specimen Description:
Vancomycin [Vancocin] 2,000 mg 0.9% Sodium Chloride 500 ml [Nss] 500 ml IV NOW
05/20/25 11:40
Comprehensive Metabolic Panel Urgent
NT-proBNP Urgent
Troponin I Urgent
05/20/25 12:16
Add On- LAB Urgent
Tests Added?: differential to CBC
05/20/25 12:18
0.9% Sodium Chloride 500 ml [Nss] 500 ml IV BOLUS
05/20/25 12:21
Ehrlichia/Anaplasma by PCR [S] Urgent
Lyme Progressive Urgent
Blood Parasites Urgent
[facility] Source: Blood/Venous
Specimen Description:
05/20/25 15:00
Lactic Acid Q4H
Comment: CANCEL 2nd LACTIC ACID IF 1st LACTIC ACID IS LESS THAN 2
Abnormal Lab Results
05/20/25 05/20/25 05/20/25
10:37 10:44 11:04
WBC 18.8 H 10^3/uL
(4.8-10.8)
Hgb 16.3 H g/dL
(12.0-16.0)
Hct 47.3 H %
(37.0-47.0)
MCV 99.6 H fL
(81.0-99.0)
MCH 34.3 H pg
(27.0-31.0)
RDW 15.6 H %
(11.5-14.5)
MPV 10.6 H fL
(7.4-10.4)
Sodium
Potassium
Chloride
Carbon Dioxide
BUN
Creatinine
Glucose
Lactic Acid 7.5 H* mmol/L
(0.7-2.0)
Total Bilirubin
AST
Alkaline Phosphatase
Troponin I
Urine Ketones 1+ A
(Negative)
Ur Occult Blood Reflex 3+ A
(Negative)
Urine Bacteria (Reflex) Few A
(Negative)
Urine Glucose 4+ A
(Negative)
Urine Albumin (Reflex) 2+ A
(Neg - Trace)
05/20/25
11:40
WBC
Hgb
Hct
MCV
MCH
RDW
MPV
Sodium 128 L mmol/L
(135-145)
Potassium 5.2 H mmol/L
(3.5-5.1)
Chloride 96 L mmol/L
(98-107)
Carbon Dioxide 14 L* mmol/L
(22-30)
BUN 60 H mg/dl
(7-17)
Creatinine 2.8 H mg/dL
(0.6-1.0)
Glucose 261 H mg/dl
(70-99)
Lactic Acid
Total Bilirubin 2.9 H D mg/dl
(0.2-1.3)
AST 279 H U/L
(14-36)
Alkaline Phosphatase 160 H U/L
(38-126)
Troponin I 0.151 H* ng/ml
Urine Ketones
Ur Occult Blood Reflex
Urine Bacteria (Reflex)
Urine Glucose
Urine Albumin (Reflex)
05/20/25 10:37
05/20/25 11:40
Vital Signs
Initial and Last Documented VS:
Initial Vital Signs
Temp Pulse Resp BP Pulse Ox
102 F H 170 33 102/73 96
05/20/25 10:29 05/20/25 10:29 05/20/25 10:29 05/20/25 10:29 05/20/25 10:29
Last Documented Vital Signs
Temp Pulse Resp BP Pulse Ox
102 F H 151 29 99/79 98
05/20/25 10:29 05/20/25 11:32 05/20/25 11:32 05/20/25 11:32 05/20/25 11:30
<Mauro Watson PA-C - Last Filed: 05/20/25 12:09>
MDM/Problems Addressed
Differential Diagnosis Includes:
Patient with weakness dizziness lightheadedness. When placed on monitor was noted the patient was tachycardic. She has a heart rate in the 170s. EKG concerning for atrial flutter. Cardizem ordered bolus and infusion. Will attempt to slow the
heart rate down. She is not anticoagulated however she does have a watchman's device.
Review of chart states that she was here 2 days ago for acute lower back pain. CT of the abdomen pelvis was negative at that time. Upon triage, she has a temperature of 102 here. Tachycardia may be related to fever. Tylenol ordered. Will use IV
fluids judiciously given history of CHF however concurrently she does not look overloaded in fact she does look somewhat dry
<Mauro Watson PA-C - Last Filed: 05/20/25 12:09>
*Pulse Oximetry
SaO2: 96
Oxygen Mode of Delivery: Room air
Patient hypoxic: no
*Critical Care Note
Total Time (30-74mins, 75-104mins- exclusive of procedures): Not Applicable
<Mauro Watson PA-C - Last Filed: 05/20/25 12:09>
Update Note
Update Note:
EKG shows what looks like atrial flutter with a rate in the 170s. Patient has a fever. Suspect tachycardia may be related to underlying potential sepsis. White blood cell count of 18.8. Chest x-ray ordered. COVID flu blood cultures and
urinalysis ordered as well. Tylenol ordered for fever. Cardizem initially ordered for tachycardia but will focus on etiology of septic as the likely source of her tachycardia. Discussed with emergency room attending
Lactic is 7. Patient continues to receive fluids and antibiotics. Cardizem was stopped due to lower blood pressure. Again case discussed emergency room attending and will admit to hospital. Workup here without obvious source of fever
ED Attending Note
<Mauro Watson PA-C - Last Filed: 05/20/25 12:09>
-
Portions of this chart may have been created with voice recognition software.� Occasional wrong word or��sound alike� substitutions may have occurred due to the inherent limitations of voice recognition software.
<Jonathan Sifuentes MD - Last Filed: 05/20/25 12:25>
ED Attending Note
Patient seen and examined by attending physician: Yes
I performed the substantive portion of visit, reviewed & personally made and approve the management plan that is documented in note by myself or JAGRUTI.: Yes
ED Attending Note:
75-year-old female presents dizzy weak short of breath. Symptoms progressive over days. Was here 2 to 3 days ago with low back pain. Workup at that time was stable. says patient has been very weak the last 24 hours. Has been lying in
bed. Has not been ambulatory. Patient complains of some low back pain but has no major pain complaints just feels very weak. They did not know she had a fever.
On exam patient is significantly ill. She is tachycardic. Temperature 102. Hypotensive. She is acutely ill-appearing hyperventilating poor eye contact. She however is alert will focus and answer questions. Neck is supple. Lungs are tachypnea
with some mild rhonchi. Tachycardic and irregular. Abdomen is soft and nontender. Some fresh bruising in the upper abdominal wall. She has no pain with hip rotation of either hip. She has got good lower extremity strength. She follows
commands.
Impression is sepsis/A-fib RVR. Source of fever is unknown at this time. Her recent CT was negative. Labs were stable. Urine was negative. Today COVID and flu are negative. Chest x-ray has some questionable early CHF changes. No obvious
pneumonia. Would consider the back is the etiology although neurologically she is stable. Sepsis dose fluids were ordered based on ideal body weight. We initially started Cardizem but stopped it due to blood pressure issues. We will attempt to
bring her blood pressure down some. Zosyn and Vanco ordered. Family updated on her critical nature.
Discussed with hospitalist. Critically ill. Multifactorial issues including sepsis, probable A-fib RVR with some heart failure. We will carefully try to start the Cardizem to bring her rate down some. Start pressors if needed.
Discharge Plan
Departure
Patient Disposition: Admit
Date of Disposition: 05/20/25
Time of Disposition: 12:08
Presentation/result/management discussed w/ accepting MD/DO: Hospitalist
Discharge Problem:
Sepsis
Prescriptions:
No Action
multivitamin with folic acid [Tab-A-Pamela] 1 TABLET tablet
1 tab PO DAILY
letrozole 2.5 mg Tablet
2.5 mg PO DAILY
coQ10 (ubiquinol) 200 mg Capsule
200 mg PO QPM
Borage Oil 1,000 mg Capsule
1,000 mg PO QPM Qty: 0
ferrous sulfate 325 mg (65 mg iron) tablet
325 mg PO MOWEFR
furosemide 40 mg Tablet
40 mg PO DAILY
metoprolol succinate [Toprol XL] 100 mg Tablet Extended Release 24 Hr
100 mg PO BID
Jardiance 25 mg Tablet
12.5 mg PO DAILY
aspirin 81 mg Tablet,Delayed Release (Dr/Ec)
81 mg PO DAILY
repaglinide 1 mg Tablet
3 mg PO AC
insulin lispro 100 unit/mL Insulin Pen
14 unit SC DAILY
insulin lispro 100 unit/mL Insulin Pen
19 unit SC DAILY@1200
insulin lispro 100 unit/mL Insulin Pen
13 unit SC QPM
red yeast rice 600 mg Tablet
1,200 mg PO DAILY
potassium chloride 20 mEq Tablet Extended Release
40 meq PO BID
insulin glargine U-300 conc [Toujeo Max U-300 SoloStar] 300 unit/mL (3 mL) Insulin Pen
16 unit SC DAILY
diltiazem HCl 180 mg capsule,extended release 24hr
180 mg PO BID
Referrals:
Katie Iyer MD [Family Provider, Internal Medicine]
Interventions
Interventions:
*Risk Screen - Suicide Last Done: 05/20/25 10:29
*General Assessment Last Done: 05/20/25 10:29
*Neglect/Abuse Screening Last Done: 05/20/25 10:29
*ED COVID-19 Vaccine History Last Done: 05/20/25 10:29
ED- Neurological Assessment Last Done: 05/20/25 11:41
Discharge Date and Time
Print Language: OMANI
[2025-05-20] MEDS: CARDIZEM 10 MG IV ×2 (10:42→10:49)
[2025-05-20] MEDS: TYLENOL 1000 MG PO (10:43)
[2025-05-20] MEDS: NSS 500 IV ×2 (10:47→12:18)
[2025-05-20] MEDS: CARDIZEM 125 IV ×2 (10:51→20:50)
[2025-05-20 10:56] LABS: Urine Character Clear (Clear)
[2025-05-20 10:58] LABS: Hematocrit 47.3 % (37.0-47.0); Hemoglobin 16.3 g/dL (12.0-16.0); Mean Corp Hgb Conc. 34.5 g/dL (33.0-37.0); Mean Corpuscular Volume 99.6 fL (81.0-99.0); Platelet Count 176 10^3/uL (130-400); Red Cell Dist. Width 15.6 % (11.5-14.5)
[2025-05-20] MEDS: ZOSYN 50 IV (11:16)
[2025-05-20 11:26] LABS: Urine Red Blood Cell 0-2 /HPF (0-2); Urine White Cell 0-2 /HPF (0-5)
[2025-05-20] MEDS: VANCOCIN 540 MG IV (11:29)
[2025-05-20 11:34] LABS: COVID-19 Antigen Negative (Negative)
--- NOTE | 2025-05-20 12:08 | HPS.HSE ---
Addendum entered and electronically signed by Linda Heredia MD 05/20/25 13:32:
Hyponatremia
-likely SIADH in setting of severe illness versus volume overload
-fluid restriction when resume diet
Original Note:
Family Physician
-
Family Physician: Katie Iyer
Chief Complaint
-
weakness
History of Present Illness
Ms. Frida Muir is a 75 yo woman with hx atrial fibrillation s/p Watchman device (), s/p ablation; s/p TAVR 04/2019, CAD s/p PCI (2015), essential HTN< HLD, DM2, obesity, HFpEF, CKD III presents to the ER with weakness.
Patient presented to the ER overnight 05/17-05/18 for complaints of lower abdominal pain radiating to lower back, diarrhea. She had a CT A/P which showed no intra-abdominal pathology and pain improved with Tylenol. Patient and report that
since then she has had progressive weakness, staying on sofa or bed. When she stands up, her lower back hurts. Patient states that lower back hurts only when standing or pushing on it. She vomited twice yesterday and reports feeling nauseated.
She did not know she was febrile until arrival to the ER. She denies chest pain. She has had progressive shortness of breath since Saturday. No new rash. Patient feels weak and fatigued today.
Per , patient's legs looks more swollen than normal.
She denies bladder or bowel incontinence or saddle anesthesia.
Medical History
Past Medical History
Past Medical History: Reports Other (see below )
Additional Past Medical History:
Paroxysmal atrial fibrillation
Status post PVI 2011, 2012
chronic OAC with eliquis
Status post TAVR 04/2019
CAD status post LAD PCI which jailed diagonal branch 2015, residual 1st diag stenosis 60-70%, stable by cath 02/2019
CKD
HTN
HLD
DM2
Obesity
History of hives with amiodarone
Anemia
mildly elevated LFTs
Past Surgical History: Reports Other (see below )
Additional Past Surgical History:
Cardiac (stent, TAVR, cardioversions, Ablation, Watchman), Gynecological (tubal, ), Orthopedic (Right foot surgery, ) and Other (Rectal fissure)
Social History
Tobacco: Non-smoker
Alcohol: None
Drug: None
Personal:
Family History
Family History: Not pertinent
Allergies / Home Medications
Allergies reflects when Allergies were last updated in [facility].
Home Medications with original date entered in [facility]
Allergy/Medication List:
Allergies
Allergy/AdvReac Type Severity Reaction Status Date / Time
adhesive (Adhesive) Allergy Rash Verified 05/17/25 23:01
amiodarone Allergy Hives Verified 05/17/25 23:01
bacitracin (From Neosporin Allergy Hives Verified 05/17/25 23:01
([id number]))
bacitracin zinc (From Allergy Hives Verified 05/17/25 23:01
Neosporin ([id number]))
Influenza Virus Vaccines Allergy Rash,SEVERE Verified 05/17/25 23:01
(Influenza Virus Vaccine) SHAKING
neomycin sulfate (From Allergy Hives Verified 05/17/25 23:01
Neosporin ([id number]-[id number]))
polymyxin B (From Neosporin Allergy Hives Verified 05/17/25 23:01
([id number]-jyd-nitet))
venom-honey bee (bee venom Allergy Hives Verified 05/17/25 23:01
(honey bee))
Home Medications
multivitamin with folic acid 400 mcg tablet (Tab-A-Pamela) 1 tab PO DAILY Supplement 07/20/21
letrozole 2.5 mg tablet 2.5 mg PO DAILY Cancer 12/24/22
coQ10 (ubiquinol) 200 mg capsule 200 mg PO QPM Supplement 04/09/23
borage seed oil 1,000 mg capsule 1,000 mg PO QPM Supplement ##0 05/21/23
ferrous sulfate 325 mg (65 mg iron) tablet 325 mg PO MOWEFR Supplement 05/21/23
furosemide 40 mg tablet 40 mg PO DAILY Fluid Retention/Swelling 08/20/23
aspirin 81 mg tablet,delayed release 81 mg PO DAILY Blood Clot Prevention/Tx 05/20/25
diltiazem HCl 180 mg capsule,extended release 24 hr 180 mg PO BID Arrhythmia 05/20/25
empagliflozin 25 mg tablet (Jardiance) 12.5 mg PO DAILY Diabetes 05/20/25
insulin glargine U-300 conc 300 unit/mL (3 mL) subcutaneous pen (Toujeo Max U-300 SoloStar) 16 unit SC DAILY Diabetes 05/20/25
insulin lispro 100 unit/mL subcutaneous pen 13 unit SC QPM Diabetes 05/20/25
insulin lispro 100 unit/mL subcutaneous pen 14 unit SC DAILY Diabetes 05/20/25
insulin lispro 100 unit/mL subcutaneous pen 19 unit SC DAILY@1200 Diabetes 05/20/25
metoprolol succinate 100 mg tablet,extended release 24 hr (Toprol XL) 100 mg PO BID Heart Failure 05/20/25
potassium chloride 20 mEq tablet,extended release 40 meq PO BID Electrolyte Repletion 05/20/25
red yeast rice 600 mg tablet 1,200 mg PO DAILY Supplement 05/20/25
repaglinide 1 mg tablet 3 mg PO AC Diabetes 05/20/25
Review of Systems
-
History Source: Patient
A 12 point ROS was completed and negative except as noted: Yes
Physical Exam
Vital Signs
Vital Signs
Temp Pulse Resp BP Pulse Ox
102 F H 151 29 99/79 98
05/20/25 10:29 05/20/25 11:32 05/20/25 11:32 05/20/25 11:32 05/20/25 11:30
Physical Exam
General: Other (opens eye easily to voice but appears tachypneic and fatigued )
HEENT: PERRLA
Respiratory: Decreased Breath Sounds; No Wheezes
Cardiac: S1/S2, Irregular Rhythm and Tachycardia
GI: Soft and Non Tender
Musculoskeletal: Other (mid lumbar spine tenderness more than paraspinal tenderness )
Skin: Warm and Dry; No Rash
Neuro: Other (patient woken to voice but appears fatigued; 5/5 strength b/l food dorsiflexion and plantarflexion; difficulty bending bilateral knees)
Psych: Calm
Laboratory Results
-
05/20/25 10:37
Laboratory Results
Lactic Acid 7.5 mmol/L (0.7-2.0) H* 05/20/25 11:04
Total Bilirubin Cancelled 05/20/25 10:37
AST Cancelled 05/20/25 10:37
ALT Cancelled 05/20/25 10:37
Alkaline Phosphatase Cancelled 05/20/25 10:37
Troponin I Cancelled 05/20/25 10:37
Data Reviewed
-
Diagnostic Radiology: Report Reviewed by me
Lab Data: Labs Reviewed by me
Impression/Plan
-
Ms. Frida Muir is a 75 yo woman with hx atrial fibrillation s/p Watchman device (), s/p ablation; s/p TAVR 04/2019, CAD s/p PCI (2015), essential HTN< HLD, DM2, obesity, HFpEF, CKD III presents to the ER with weakness. She is found
to have severe sepsis with unknown source and afib with RVR.
Triage VS: T 102, P 170, RR 33, BP 102/73, SpO2 96%
EKG: SVT (aflutter?) @ 176, TWI III, q waves V2
LABS: WBC 18.8, Hg 16.3, PLT 176, Na 128, K+ 5.2, Cl 96, CO2 14, BUN 60, Cr 2.8, Glucose 261, T. Bili 2.9, AST 279, ALT 127, Alk Phos 160
Trop 0.151, BNP > 79477
lactate 7.5
UA with 0-2 WBC
Covid Negative; Influenza Negative
CXR 05/20/25
IMPRESSION:
No evidence of pneumonia. Slight prominent bronchovascular markings and mild bronchial wall thickening, which could indicate an element of mild interstitial edema or possibly viral respiratory syndrome.
MAR: IV Diltiazem x 2, gtt, NS 500cc bolus, IV Vanc/Zosyn
Severe Sepsis with unknown source
Lactic Acidosis
Lower Back pain with 5/5 strength LE plantar and dorsiflexion
-Patient presents with tachycardia, leukocytosis and lactate 7.5. Source unclear. CXR without e/o pneumonia. Covid and flu negative. CT A/P from 2 days ago without acute abdominal process. Patient's main complaint is mid lumbar spine pain but
she is not stable enough right now for an MRI. She denies bladder/bowel incontinence or saddle anesthesia;
-blood parasites, Ehrlichia and Lyme progressive sent
-blood cultures pending
-admit to ICU
-will continue with broad spectrum antibiotics: Vanc/Zosyn; add on Doxycycline
-given fatigue, will ask RN upstairs to perform swallow eval prior to diet
-Cat Tender consult
-ID consult
-s/p 500cc bolus in ER. holding off on running fluids given concern for HF (see below)
Atrial Fibrillation with RVR
-patient's HR in 160's with SBP in 90's. IV Diltiazem gtt re-started, with addition of IV phenylephrine if needed for drop in SBP < 90. Patient has an amiodarone allergy
-she is s/p Watchman device in 2022
-hold POURER OFF Diltiazem 180mg PO BID; Metoprolol XL 100mg PO BID
-Cardiology consult
Heart Failure preserved EF, Acute Exacerbation
-TTE 08/2024 with EF 55-60%. She is tachypneic but that is likely more related to severe metabolic acidosis. Her LE are more swollen than normal per
-hold POURER OFF Lasix 40mg PO QD
-defer diuresis to Cardiology
Hx Hypokalemia
K+ 5.2
-hold home K supplementation for now
Acute on Chronic Kidney Disease
CKD III
-baseline creatinine 2.2-2.4; 2.8 on admission
-in setting of severe sepsis
-follow up urine studies
-creatinine should improve with treatment of sepsis and stabilization of HR
-Nephrology consult if renal function worsens
IDDM
-Patient is on Toujeou 16 units daily; will order 10 units daily + ISS for now
-hold pre-meal insulin, resume based on BGL values
-hold POURER OFF Jardiance
-hold POURER OFF Repaglinide
Transaminitis
-no RUQ pain; negative Herrera's sign
-likely in setting of severe sepsis
-continue to trend
DVT PPx Hep subQ
FULL CODE
Total Critical Care Time 70 minutes. I was immediately available to the patient and staff. I personally examined, reviewed labs, diagnostic images/reports, interpretations, treatment plans, discussed patient care with other providers and family
or caregivers (if patient is unable to make decisions), entered orders as appropriate and documented the medical record.
[2025-05-20 12:17] LABS: AST (SGOT) 279 U/L (14-36); Albumin 3.6 g/dl (3.5-5.0); Alkaline Phosphatase 160 U/L (38-126); Blood Urea Nitrogen 60 mg/dl (7-17); Calcium 8.9 mg/dl (8.4-10.2); Carbon Dioxide 14 mmol/L (22-30); Chloride 96 mmol/L (98-107); Estimated Creatinine Clearance 17 ml/min; Glucose 261 mg/dl (70-99); Potassium 5.2 mmol/L (3.5-5.1); Sodium 128 mmol/L (135-145); Total Protein 6.5 g/dl (6.3-8.2); eGFR 16.87
[2025-05-20 12:19] LABS: Troponin I 0.151 ng/ml
[2025-05-20 12:24] LABS: Absolute Neutrophils -Man Diff 17.8 10^3/uL (1.4-6.5)
[2025-05-20 12:25] LABS: Normal RBC Morphology No; Platelets Checked Yes
[2025-05-20 12:26] LABS: Acanthocytes Slight; Anisocytosis Slight; Ovalocytes Slight; Total Cells Counted 100
[2025-05-20 12:31] LABS: ALT (SGPT) 127 U/L (0-35)
[2025-05-20] MEDS: LANOXIN 250 MCG IV ×2 (13:19→20:05)
[2025-05-20] MEDS: VIBRAMYCIN 260 MG IV (13:32)
--- NOTE | 2025-05-20 13:32 | CON.ID ---
Consultation
-
Date/Time Consultation Requested: 05/20/2025 13:23
Date/Time Consultation Performed: 05/20/2025 1330
Requesting Provider: Dr. Heredia
Performing Provider: Dr. Gill
Reason for Consultation: Clinical sepsis
Chief Complaint / Past History
History of Present Illness
Frida Muir is a 75-year-old female being evaluated at request of Dr. Heredia regarding Clinical Sepsis. History Is Obtained from Chart Review, along with Patient Interview.
The patient has a significant past medical history of atrial fibrillation and DM, and was evaluated in the ER on 05/18/2025 for abdominal pain which began approximately 1 to 2 days prior. She noted it was diffuse throughout the lower abdomen and
radiated to the low back. She admitted to chills, but no fever, nausea or vomiting. She did admit to diarrhea without blood. Additionally, she complained of low back discomfort, which was reported to be 7/10 according to her . No recent
injury, trauma or fall. Ultimately she was discharged to home to follow-up with her PCP and Nephrology.
She presents back to the ER today with ongoing complaints of weakness, shortness of breath and lightheadedness. According to the , her weakness progressed where he could not even get her out of bed. She noted increasing shortness of breath,
but without cough. Prior abdominal pain has seemed to improve, although she continues to have low back discomfort. Workup in the ER has revealed marked leukocytosis, along with hyponatremia and EMILY. proBNP was greater than 27,000. She has been
started on empiric antibiotics (vancomycin, Zosyn) and Infectious Diseases asked, upon further antimicrobial therapy.
She lives at home with her . She likes to [employer]. No recent travel.
Past History
Additional Past Medical History:
A-fib
CAD
Hx left breast CA
HTN
HLD
CHF
DM type II
Valvular disease (AAS, MR)
Vertigo
Diverticulitis
Additional Past Surgical History:
PCI with stenting
TAVR (2018)
Cardioversion, ablation
Watchman procedure (05/2023)
Left breast lumpectomy (2021)
Tubal ligation
Allergy History:
adhesive (Adhesive) Allergy (Verified 05/17/25 23:01)
Rash
amiodarone Allergy (Verified 05/17/25 23:01)
Hives
bacitracin (From Neosporin (prz-nsk-uapnp)) Allergy (Verified 05/17/25 23:01)
Hives
bacitracin zinc (From Neosporin (esh-vvd-eftvx)) Allergy (Verified 05/17/25 23:01)
Hives
Influenza Virus Vaccines (Influenza Virus Vaccine) Allergy (Verified 05/17/25 23:01)
Rash,SEVERE SHAKING
neomycin sulfate (From Neosporin (vux-xzi-hkrfi)) Allergy (Verified 05/17/25 23:01)
Hives
polymyxin B (From Neosporin (bjr-euv-tcncn)) Allergy (Verified 05/17/25 23:01)
Hives
venom-honey bee (bee venom (honey bee)) Allergy (Verified 05/17/25 23:01)
Hives
Medications Reviewed: Yes
Current Antibiotics:
Vanco
Zosyn
Doxy IV
Social History
Tobacco: Non-Smoker
Alcohol: None
Drug: None
Personal:
Living: With Family
Employment: Retired
Family History
Family History: Not Pertinent
Review of Systems
Vital Signs
Temp Pulse Resp BP Pulse Ox
102 F H 156 29 99/79 98
05/20/25 10:29 05/20/25 13:19 05/20/25 11:32 05/20/25 11:32 05/20/25 11:30
Physical Exam
Physical Exam
Constitutional: Acutely Ill, Non-toxic and Obese
Head: Normocephalic
Eyes: Pupils Equal, Pupils Round, No Conjunctival Hemorrhage and Sclera Anicteric
Oral: No Thrush and No Ulcers
Cardiovascular: Regular Rate (Tachycardic at up to 140) and S1/S2; Negative S3/S4
Pulmonary: Clear; Negative Wheezes, Rales or Rhonchi
Gastrointestinal: Soft, Non Tender, Non Distended and Normal Bowel Sounds
Extremities: Edema; Negative Cyanosis, Erythema, Splinter Hemorrhage, Calf Swelling or Venous Insufficiency
Musculoskeletal: Spinal Tenderness (Mid low back)
Skin: Warm and Dry
Wound: None
Neurological: Awake and Alert; Negative Meningeal Signs
Psychological: Calm
Lab / Diagnostic Study Results
05/20/25 10:37
05/20/25 11:40
Total Counted 100 05/20/25 10:37
Abs Neuts (Manual) 17.8 10^3/uL (1.4-6.5) H 05/20/25 10:37
Segmented Neutrophils 84 % (42-75) H 05/20/25 10:37
Band Neutrophils 11 % (0-3) H 05/20/25 10:37
Lymphocytes (Manual) 2 % (20-51) L 05/20/25 10:37
Lactic Acid 7.5 mmol/L (0.7-2.0) H* 05/20/25 11:04
Ur Squamous Epith Cells 3-5 /LPF (Few) 05/20/25 10:44
Microbiology Results
Micro:
05/20/25 12:36 Blood Parasites Smear - Pending
Blood/Venous
05/20/25 11:15 Influenza Types A & B (BARBIE) - Final
Nasal Swab Negative for Influenza A & B, NAAT
Negative results must be combined with clinical observations
and patient history.
Nucleic Acid Amplification test (NAAT)performed on the
[employer] platform.
05/20/25 11:03 Blood Culture - Pending
Blood/Venous
05/20/25 11:03 Blood Culture - Pending
Blood/Venous
Imaging:
05/18/2025 CT abdomen/pelvis without contrast: no acute pathology of the abdomen or pelvis identified. Tiny fat-containing umbilical hernia. Unenhanced liver, spleen and pancreas are unremarkable. Few small gallstones noted in the gallbladder. No
significant lymphadenopathy. Mild diverticulosis noted.
Assessment / Plan
Clinical sepsis
Fever
Lactic acidosis
Leukocytosis
EMILY on CKD
Exac CHF
Elevated AST and ALT
A-fib
CAD
Hx left breast CA
HTN
HLD
DM type II
Valvular disease (AAS, MR)
Vertigo
Diverticulitis
Recommendations:
Continue with empiric vancomycin. Follow levels closely to prevent nephrotoxicity.
Given elevated proBNP and likelihood of CHF, transition Zosyn to meropenem 500 mg q.12 IV.
Discontinue further doxycycline.
Blood cultures have been obtained; will continue to follow. Would repeat for temperature greater than 101 degrees.
No significant findings in the low back on recent CT scan. Would consider MRI when patient is more stable.
Trend lactate.
Follow white count and temperature curve.
Further recommendations as additional data is returned.
Care Review
Plan reviewed with: Physician (Hospitalist)
--- NOTE | 2025-05-20 13:57 | CON.CAR ---
Addendum entered and electronically signed by Cristian Lenz MD 05/20/25 14:37:
75-year-old woman admitted with clinical sepsis in the setting of permanent atrial fibrillation, now with hypotension and rapid ventricular response, history of CKD with baseline creatinine 2.7. Seen in the emergency department on 05/18 with lower
abdominal pain, CT scan of abdomen and pelvis was relatively unremarkable, small gallstones, bladder wall thickening
PMH: CKD 3B, history of #26 CoreValve TAVR 2018, permanent atrial fibrillation, Watchman, hypertension, type 2 diabetes, mitral stenosis with peak/mean gradient 20 and 7.25 August 2024, CAD, drug-eluting stent to LAD, jailed diagonal branch, PVI
2011 and 2012, history of GI bleeding, hypertension, type 2 diabetes, left breast cancer with lumpectomy and XRT, hyperlipidemia, severe pulmonary hypertension
Allergies: Amiodarone
99/, pulse 151, temp 38.8, ill-appearing, jaundiced, lungs are clear very tachypneic, distant heart tones, no obvious murmurs, abdomen is soft, extremities without much clubbing cyanosis or edema
ECG SVT versus atrial flutter/fibRight axis deviation, lateral infarct, possible septal HI, low voltage precordium
Chest x-ray: Diffuse infiltrates, TAVR, osteopenia
White count 18.8, hemoglobin 16.3
Sodium 128, potassium 5.2, CO2 14, anion gap is 18, BUN and creatinine are 60 and 2.8, bilirubin is 2.9, AST is 279, ALT is 127, alk phos is 160, troponin is 0.151, proBNP is greater than 27,000, 3+ blood and urine, few bacteria, 4+ glucose,
COVID-negative
CT abdomen pelvis 05/18/2025: Few gallstones, some bladder thickening.
Sestamibi study 2022: Fixed anteroapical defect, no ischemia
Echo 08/2024: EF 55-60%, mild LVH, mild to moderate mitral stenosis, peak/mean gradient 20/7.3 mmHg, #26 [employer] CoreValve peak/mean gradient 35/18 mmHg, moderate TR, pulmonary artery pressure 74 mmHg systolic, dilated atria with dilated
hypokinetic RV
Impression:
Clinical sepsis with MSOF
Atrial fibrillation/flutter with RVR and hypotension
Acute on chronic HFpEF
Permanent atrial fibrillation
Status post Watchman
TAVR 2019
Moderate mitral stenosis
CAD with LAD PCI 2016, jailed diagonal, 60-70% D1 stenosis CKD 3B
Hypertension, hyperlipidemia, diabetes, amiodarone allergy, history of GI bleed, history of breast cancer status post left lumpectomy and XRT
Plan:
She presents with evidence of clinical sepsis and has an EKG showing what I suspect is atrial flutter with rapid ventricular response rather than SVT, given that her underlying rhythm is atrial fibrillation. Carotid massage produced transient
slowing and what I thought was the appearance of P waves which are likely flutter waves.
Her proBNP is greater than 27,000. She has an anion gap. Would not attempt to diurese her, and volume should be administered cautiously.
Defer antibiotics, etc. to hospitalist and critical care.
From the standpoint of hemodynamic support, angulo issues are to better control heart rate, particularly in the setting of mitral stenosis and support blood pressure. Agree with the use of diltiazem and as needed phenylephrine as has been ordered. We
already ordered digoxin. This will be as needed only given CKD 3B/4
She is at high risk for vent dependent respiratory failure.
Will check echo when heart rate better controlled.
Original Note:
Consultation
Consultation Request
Date/Time Consultation Performed: 05/20/25
Requesting Provider: Mauro Magallon PA-C
Performing Provider: Klaudia Rodriguez PA-C for Dr. HEVER Lenz
Reason for Consultation: afib with RVR, hypotension, sepsis
Medical History
-
Chief Complaint: back pain
History of Present Illness:
Frida is a 73 year old female with PMHx of PAF s/p PVI x 2, TAVR, CAD s/p LAD PCI, CHF, CKD, HTN, HLD, DM2, anemia and watchman 06/04/2023 who began feeling poorly on Saturday with diffuse lower abdominal/back pain. She presented to [facility] ER for
evaluation and underwent CT of the abdomen and pelvis which was without significant findings and patient was discharged to home. She presented back today due to persistent symptoms in addition to of weakness, fever and is found to have evidence of
severe sepsis. Cardiology consulted as patient in atrial fibrillation with rapid ventricular response as well as with relative hypotension. She has known permanent atrial fibrillation. She was given IV Cardizem push 10 mg x 2 and was started on
IV Cardizem drip, however then noted to have drop in her blood pressure so was temporarily stopped, however then restarted due to rapid heart rates as high as 160s. She has a history of hives with amiodarone therapy. Patient appears uncomfortable
in bed in ER. Reports some shortness of breath in addition and proBNP <[id number].
PMH:
Permanent atrial fibrillation
s/p PVI 2011, 2012
S/p Watchman implant 06/04/2023 (post watchman ROBERT 07/17/2023 stable)
s/p TAVR 04/2019
Moderate MS by echo 05/2022
CAD s/p LAD PCI which jailed diagonal branch 2015, residual 1st diag stenosis 60-70%, stable by cath 02/2019
CKD3B
HTN
HLD
DM2
Obesity
History of hives with amiodarone
H/O GIB w/ anemia
History of ER+ breast cancer s/p L lumpectomy/XRT, on letrozole
Past Medical History
Past Medical History: Other (in HPI)
Past Surgical History: Cardiac (PVI x2 2011 and 2012, PCI to LAD 2015, TAVR 04/2019, CV 05/2021), Gynecological (tubal), Orthopedic (Foot surgery) and Other (L breast lumpectomy, hysteroscopy, Rectal fissure)
Social History
Tobacco: Non-Smoker
Alcohol: None
Drug: None
Personal:
Living: With Family
Employment: Retired
Family History
Family History: Cancer and Hypertension
Allergies / Home Medications
Allergy/AdvReac Type Severity Reaction Status Date / Time
adhesive (Adhesive) Allergy Rash Verified 05/17/25 23:01
amiodarone Allergy Hives Verified 05/17/25 23:01
bacitracin (From Neosporin Allergy Hives Verified 05/17/25 23:01
([id number]))
bacitracin zinc (From Allergy Hives Verified 05/17/25 23:01
Neosporin ([id number]))
Influenza Virus Vaccines Allergy Rash,SEVERE Verified 05/17/25 23:01
(Influenza Virus Vaccine) SHAKING
neomycin sulfate (From Allergy Hives Verified 05/17/25 23:01
Neosporin ([id number]))
polymyxin B (From Neosporin Allergy Hives Verified 05/17/25 23:01
([id number]))
venom-honey bee (bee venom Allergy Hives Verified 05/17/25 23:01
(honey bee))
�Medication �Instructions �Recorded �Confirmed �Type
multivitamin with folic acid 400 1 tab PO DAILY Supplement 07/20/21 05/20/25 History
mcg tablet (Tab-A-Pamela)
letrozole 2.5 mg tablet 2.5 mg PO DAILY Cancer 12/24/22 05/20/25 History
coQ10 (ubiquinol) 200 mg capsule 200 mg PO QPM Supplement 04/09/23 05/20/25 History
borage seed oil 1,000 mg capsule 1,000 mg PO QPM Supplement ##0 05/21/23 05/20/25 History
ferrous sulfate 325 mg (65 mg 325 mg PO MOWEFR Supplement 05/21/23 05/20/25 History
iron) tablet
furosemide 40 mg tablet 40 mg PO DAILY Fluid 08/20/23 05/20/25 History
Retention/Swelling
aspirin 81 mg tablet,delayed 81 mg PO DAILY Blood Clot 05/20/25 05/20/25 History
release Prevention/Tx
diltiazem HCl 180 mg 180 mg PO BID Arrhythmia 05/20/25 05/20/25 History
capsule,extended release 24 hr
empagliflozin 25 mg tablet 12.5 mg PO DAILY Diabetes 05/20/25 05/20/25 History
(Jardiance)
insulin glargine U-300 conc 300 16 unit SC DAILY Diabetes 05/20/25 05/20/25 History
unit/mL (3 mL) subcutaneous pen
(Toujeo Max U-300 SoloStar)
insulin lispro 100 unit/mL 13 unit SC QPM Diabetes 05/20/25 05/20/25 History
subcutaneous pen
insulin lispro 100 unit/mL 14 unit SC DAILY Diabetes 05/20/25 05/20/25 History
subcutaneous pen
insulin lispro 100 unit/mL 19 unit SC DAILY@1200 Diabetes 05/20/25 05/20/25 History
subcutaneous pen
metoprolol succinate 100 mg 100 mg PO BID Heart Failure 05/20/25 05/20/25 History
tablet,extended release 24 hr
(Toprol XL)
potassium chloride 20 mEq 40 meq PO BID Electrolyte Repletion 05/20/25 05/20/25 History
tablet,extended release
red yeast rice 600 mg tablet 1,200 mg PO DAILY Supplement 05/20/25 05/20/25 History
repaglinide 1 mg tablet 3 mg PO AC Diabetes 05/20/25 05/20/25 History
Review of Systems
-
History Source: Patient and Family
All other systems: Negative unless noted
Physical Exam
Vital Signs
Temp Pulse Resp BP Pulse Ox
102 F H 140 29 109/91 94
05/20/25 10:29 05/20/25 13:30 05/20/25 13:30 05/20/25 13:30 05/20/25 13:00
Lab Results
05/20/25 10:37
05/20/25 11:40
Troponin I 0.151 ng/ml H* 05/20/25 11:40
Ozq-D-Ncricblnbbl Pept > 36008 pg/ml 05/20/25 11:40
Physical Exam
General: Pain and Other (uncomfortable. ashen appearance)
HEENT: Normocephalic, Anicteric and Moist Mucous Membranes
Cardiac: S1/S2, Irregular Rhythm and Murmur
Musculoskeletal: No Clubbing, No Cyanosis and Edema (1+ of B/L LE)
Skin: Warm and Dry
Neuro: AO x 3
Impression / Plan
-
Primary [employer] Officer: Dr. Baez
Assessment:
Presentation with lower back pain
Severe sepsis
Lactic acidosis
Leukocytosis
Hypotension
Permanent atrial fibrillation, presently with RVR
s/p PVI 2011, 2012
S/p Watchman implant 06/04/2023 (post watchman ROBERT 07/17/2023 stable)
Suspected acute on chronic HFpEF
Elevated troponin
Transaminitis
Hyponatremia
s/p TAVR 04/2019
Moderate MS by echo 05/2022
CAD s/p LAD PCI which jailed diagonal branch 2015, residual 1st diag stenosis 60-70%, stable by cath 02/2019
CKD3B
HTN
HLD
DM2
Obesity
History of hives with amiodarone
H/O GIB w/ anemia
History of ER+ breast cancer s/p L lumpectomy/XRT, on letrozole
Echo 09/19/2024: EF 55 to 60%, mild concentric LVH, mild to moderate MS with peak/mean gradients 20/7 mmHg, TAVR with peak/mean gradients 35/18 mmHg, no AR, moderate TR, PAP 74 mmHg, enlarged RA and RV with reduced RV systolic function
Plan:
- Patient presents critically ill with continued complaints of lower back pain, weakness, fever. Etiology unclear at this time. CT of the abdomen and pelvis reviewed from 05/18 without clear etiology identified
- Meets criteria for severe sepsis. Continue broad-spectrum antibiotics. Infectious disease following
- Cardiology consulted as noted to be in rapid atrial fibrillation with relative hypotension. Was given IV Cardizem push 10 mg x 2 and started on IV Cardizem drip, presently at 10. Blood pressures stable around 100 systolic. Would consider
initiation of Demetris-Synephrine to allow more aggressive rate control as needed. As outpatient was on Cardizem 180 mg twice daily and Toprol 100 mg twice daily. She is not anticoagulated due to history of watchman
- She cannot tolerate amiodarone, with history of hives. Will give 1 dose of IV digoxin 0.25 now, and could consider repeating later this evening if needed. Potassium 5.2, creatinine 2.8
- Follow closely on telemetry
- Likely also with component of acute on chronic CHF with proBNP greater than 27,000. Chest x-ray without evidence of pneumonia, however with evidence of mild edema. Would likely hold off on diuresis for now with relative hypotension in setting of
acute infectious process, but will require eventual diuresis. Prior to admission was on Lasix 40 mg daily. Creatinine today 2.8, which appears relatively close to baseline which appears approximately 2.5
- Potassium 5.2, hold outpatient K supplementation
- Last echo from 08/2024 as above, will repeat
- Troponin elevated at 0.15. No chest pain. Suspect nonischemic myocardial injury, however will trend to peak. Continue aspirin
- full code
- d/w at bedside
Data Reviewed
-
EKG: Tracing Personally Visualized and interpreted
Radiology: Report Reviewed by me
CT Scan: Report Reviewed by me
Medical Tests (Nuc Med, Echo etc): Report Reviewed by me
Labs: Labs Reviewed by me
Old Records: Reviewed
[2025-05-20 14:00] LABS: Venous Blood Gas B.E. -16.3 mmol/L (-4 to +4); Venous Blood Gas O2 Sat % 88.1 %
[2025-05-20] MEDS: SODIUM BICARBONATE 50 MEQ IV (14:29)
--- NOTE | 2025-05-20 14:36 | CON.INTV ---
Consultation
Consultation Request
Date/Time Consultation Requested: 05/20/2025
Date/Time Consultation Performed: 05/20/2025
Medical History
-
Chief Complaint: Weakness, lethargy, back pain
History of Present Illness:
Patient is a 75-year-old female with complicated past medical cardiac history including aortic stenosis, mitral stenosis, status post Watchman procedure, coronary artery disease status post PCI and congestive heart failure with preserved ejection
fraction who presents to emergency room with progressive weakness over the last few days. She was evaluated in the emergency room couple of days ago for lower abdominal pain and had a CT scan which was unremarkable. Patient's reports that
over the last 24 to 48 hours she has been progressively getting weaker at home and having increasing difficulty getting up. Today he noted fever as well as change in her breathing pattern. He was unable to get her off the couch and called EMS and
patient was brought to the emergency room. She was noted to be quite tachycardic febrile with borderline blood pressure. Patient reportedly vomited twice the day before and reports feeling nauseous. Additional workup was suggestive of elevated
lactate, metabolic acidosis. In view of her rapid ventricular rate, cardiology service evaluated the patient in the emergency room, she was given a dose of digoxin and then started on Cardizem infusion. Patient was subsequently admitted to ICU in
the setting of severe sepsis with metabolic acidosis, elevated lactate and hydrogeologist consult was requested for further input.
Past Medical History
Past Medical History: Reports Other (see below )
Additional Past Medical History:
Paroxysmal atrial fibrillation
Status post PVI 2011, 2012
chronic OAC with eliquis
Status post TAVR 04/2019
CAD status post LAD PCI which jailed diagonal branch 2015, residual 1st diag stenosis 60-70%, stable by cath 02/2019
CKD
HTN
HLD
DM2
Obesity
History of hives with amiodarone
Anemia
mildly elevated LFTs
Past Surgical History: Reports Other (see below )
Additional Past Surgical History:
Cardiac (stent, TAVR, cardioversions, Ablation, Watchman), Gynecological (tubal, ), Orthopedic (Right foot surgery, ) and Other (Rectal fissure)
Social History
Tobacco: Non-smoker
Alcohol: None
Drug: None
Personal:
Family History
Family History: Not pertinent
Allergies / Home Medications
Allergies / Home Medications
Allergies
Allergy/AdvReac Type Severity Reaction Status Date / Time
adhesive (Adhesive) Allergy Rash Verified 05/17/25 23:01
amiodarone Allergy Hives Verified 05/17/25 23:01
bacitracin (From Neosporin Allergy Hives Verified 05/17/25 23:01
([id number]))
bacitracin zinc (From Allergy Hives Verified 05/17/25 23:01
Neosporin ([id number]-fkt-iznrt))
Influenza Virus Vaccines Allergy Rash,SEVERE Verified 05/17/25 23:01
(Influenza Virus Vaccine) SHAKING
neomycin sulfate (From Allergy Hives Verified 05/17/25 23:01
Neosporin ([id number]-xya-[id number]))
polymyxin B (From Neosporin Allergy Hives Verified 05/17/25 23:01
([id number]-[id number]))
venom-honey bee (bee venom Allergy Hives Verified 05/17/25 23:01
(honey bee))
Home Medications
�Medication �Instructions �Recorded �Confirmed �Last Taken �Type
multivitamin with folic acid 400 1 tab PO DAILY Supplement 07/20/21 05/20/25 08/19/23 History
mcg tablet (Tab-A-Pamela)
letrozole 2.5 mg tablet 2.5 mg PO DAILY Cancer 12/24/22 05/20/25 08/19/23 History
coQ10 (ubiquinol) 200 mg capsule 200 mg PO QPM Supplement 04/09/23 05/20/25 08/19/23 History
borage seed oil 1,000 mg capsule 1,000 mg PO QPM Supplement ##0 05/21/23 05/20/25 08/19/23 History
ferrous sulfate 325 mg (65 mg 325 mg PO MOWEFR Supplement 05/21/23 05/20/25 08/19/23 History
iron) tablet
furosemide 40 mg tablet 40 mg PO DAILY Fluid 08/20/23 05/20/25 08/19/23 History
Retention/Swelling
aspirin 81 mg tablet,delayed 81 mg PO DAILY Blood Clot 05/20/25 05/20/25 Unknown History
release Prevention/Tx
diltiazem HCl 180 mg 180 mg PO BID Arrhythmia 05/20/25 05/20/25 Unknown History
capsule,extended release 24 hr
empagliflozin 25 mg tablet 12.5 mg PO DAILY Diabetes 05/20/25 05/20/25 Unknown History
(Jardiance)
insulin glargine U-300 conc 300 16 unit SC DAILY Diabetes 05/20/25 05/20/25 Unknown History
unit/mL (3 mL) subcutaneous pen
(Toujeo Max U-300 SoloStar)
insulin lispro 100 unit/mL 13 unit SC QPM Diabetes 05/20/25 05/20/25 Unknown History
subcutaneous pen
insulin lispro 100 unit/mL 14 unit SC DAILY Diabetes 05/20/25 05/20/25 Unknown History
subcutaneous pen
insulin lispro 100 unit/mL 19 unit SC DAILY@1200 Diabetes 05/20/25 05/20/25 Unknown History
subcutaneous pen
metoprolol succinate 100 mg 100 mg PO BID Heart Failure 05/20/25 05/20/25 Unknown History
tablet,extended release 24 hr
(Toprol XL)
potassium chloride 20 mEq 40 meq PO BID Electrolyte Repletion 05/20/25 05/20/25 Unknown History
tablet,extended release
red yeast rice 600 mg tablet 1,200 mg PO DAILY Supplement 05/20/25 05/20/25 Unknown History
repaglinide 1 mg tablet 3 mg PO AC Diabetes 05/20/25 05/20/25 Unknown History
Review of Systems
Vitals / Labs / Diagnostic Testing
Vital Signs
Temp Pulse Resp BP Pulse Ox
102 F H 140 29 109/91 94
05/20/25 10:29 05/20/25 13:30 05/20/25 13:30 05/20/25 13:30 05/20/25 13:00
Lab Data
05/20/25 10:37
05/20/25 11:40
Microbiology
05/20/25 11:15 Nasal Swab Influenza Types A & B (BARBIE) - Final
Negative for Influenza A & B, NAAT
Negative results must be combined with clinical observations
and patient history.
Nucleic Acid Amplification test (NAAT)performed on the
[employer] platform.
Diagnostic Testing:
Physical Exam
-
HEENT: Normocephalic
Cardiovascular: S1/S2 (Tachycardia), Irregular Rhythm and Peripheral Edema (Trace edema)
Respiratory: Rales (Few inspiratory rales posteriorly)
GI: Soft
Neurology: Other (Patient is lethargic, able to communicate, not fully oriented)
Skin: Warm
General: Respiratory Distress (Mild distress noted with tachypnea and tachycardia.)
Assessment
-
#1. Severe sepsis, ?source
- s/p 1.5 ltr fluid bolus in ED
- Lactate elevated, mental with encephalopathy, tachypnea and tachycardia
- Broad spectrum antibiotics, IV Vancomycin, Meropenem
- At high risk of deterioration requiring intubation, mechanical ventilation and pressor support. Patient had multiorgan dysfunction including acute kidney injury, acute liver injury, atrial fibrillation with rapid ventricular rate, encephalopathy
and tachypnea.
- Serial lactate
- F/u on cultures
- ID service on case. CXR and U/A not suggestive of infection
- History of lower back pain, will pursue additional imaging once patient is more stable
#2. Metabolic acidosis, elevated lactate
- Suspected related to underlying severe sepsis
- pH 7.18, elevated lactate at 7.8. Stat sodium bicarbonate push followed by sterile water with Bicarbonate infusion
- Serial lactate, ABG.
#3. EMILY on CKD with hyperkalemia.
- Suspect worsening in the setting of severe sepsis
- Sodium bicarbonate infusion as above, serial labs, monitor I/O
- Place moore
- Home dose of Lasix, potassium and Jardiance
#4. SVT/Atrial Fibrillation with RVR
- Cardiology service consulted
- Patient on cardizem infusion and also received Digoxin IV
- Severe sepsis also contributing to tachycardia
- Heart rate in 160s in the ICU, give Lopressor 2.5 mg IV stat. Currently on Cardizem infusing at 10 mg/h, cardiology service on case
- Status post Watchman procedure, not on anticoagulation at home
#5. HFrEF
- X-ray suggestive of developing pulmonary congestion
- S/p 1.5 L in the emergency room
- Starting sterile water with sodium bicarbonate in view of metabolic acidosis and pH below 7.2
- Hold off additional boluses or diuresis for now
- BNP elevated at 27,000
#6. IDDM
- Continue insulin as ordered
- Hold Jardiance and repaglinide
#7. Abnormal LFTs
- Suspect acute abnormality in AST ALT in the setting of severe sepsis
- Await PT, INR and PTT
- Serial lab work
#8. H/o CAD, s/p PCI (2015)
- Patient denies any chest pain, elevated troponin noted, likely in the setting of severe sepsis
- Cardiology service on case
#9. Pulmonary HTN
- Pulmonary artery systolic pressure of 74 on echo in August 2024. Also reduced RV systolic function with enlarged size.
- Suspect group II pulmonary hypertension in the setting of prior history of severe aortic stenosis s/p TAVR, currently has moderate mitral stenosis as well as heart failure with preserved ejection fraction
- Right heart cath in 2018 had a pulmonary capillary wedge pressure of 30 and mean pulmonary artery pressure of 37.
- No prior history of known pulmonary disease
- Presence of pulmonary hypertension with RV dysfunction puts her at high risk of cardiovascular collapse with intubation and mechanical ventilation
#10. Acute metabolic encephalopathy
- Patient more lethargic, suspect related to underlying severe sepsis and acidosis
- Blood gas reviewed, not suggestive of hypercapnia
Other medical diagnoses:
- History of aortic stenosis, s/p TAVR in 2019
- S/p Watchman procedure
- Hypertension, hyperlipidemia
- History of breast cancer status postlumpectomy and radiation therapy
- Moderate mitral stenosis
Family update 05/20/2025
I met with patient in the respite room, later at bedside. We went over patient's current condition. He expressed that patient had expressed to him that she would not want to be on life support for a long period of time and would not want
chest compressions or shocks. We discussed various code options including full code DNR, DNI. Patient has been opted to proceed with limited DNR, including okay to intubate if needed for respiratory reason but not to pursue chest compressions or
defibrillation in the setting of cardiac arrest. CODE STATUS updated
Critical Care time 72 mins -- The patient is admitted for acute critical illness for the treatment of vital organ failure and/or prevention of further life-threatening conditions. Total care includes time spent in review of history, physical exam,
medications, hemodynamic/ventilator parameters, laboratory data, imaging and discussion with house staff, pharmacy, respiratory therapy, golf technician, and nursing.
Data:
CXR 04/2025: No evidence of pneumonia. Slight prominent bronchovascular markings and mild bronchial wall thickening, which could indicate an element of mild interstitial edema or possibly viral respiratory syndrome.
CT Abd/pelvis 04/2025: No acute pathology of the abdomen or pelvis identified.
Tiny fat-containing umbilical hernia. No evidence of incarceration or strangulation. Stable.
Gallstones. Enlarged.
Mild diverticulosis. Stable
Mild diffuse bladder wall thickening. This can be seen with cystitis or bladder outlet obstruction. Stable
Mild free fluid in the pelvis. New. Uncommon in a postmenopausal female. Etiology unknown.
ECHO 08/2024: Normal left ventricular size and systolic function. Mild concentric LVH. No
regional wall motion abnormalities are seen. LV ejection fraction is 55-60% by
Springer's method of discs. Diastolic function indeterminate due to atrial
fibrillation.
Calcified mitral valve leaflets with decreased excursion. Mild to moderate
mitral stenosis. Peak/mean gradients across the mitral valve are 19.9/7.3 mmHg
respectively. No mitral regurgitation is seen.
Normal left atrial size. Indexed LA volume is within normal range (15-34
mL/m2).
TAVR with peak/mean gradients across the aortic valve are 34.6/18 mmHg
respectively. No aortic regurgitation is seen.
Tricuspid valve opens normally. Moderate tricuspid regurgitation. Estimated
pulmonary artery pressure of 74 mmHg. Assuming a right atrial pressure of 8
mmHg.
Enlarged right atrium.
Enlarged right ventricular size. Reduced right ventricular systolic function.
Since echocardiogram 08/20/2023, there is no significant change. Mean pressure
gradient across TAVR is increased slightly from 8 mmHg to 18 mmHg.
[2025-05-20] MEDS: SODIUM BICARBONATE 1150 MEQ IV ×2 (14:38→18:51)
--- NOTE | 2025-05-20 14:39 | PHA.VAN.IN ---
Assessment
- Assessment
Renal Function: SCR Appears Elevated from baseline (SCR 2.8 vs ~2.2-2.4)
Concomitant Antimicrobials: meropenem
Plan
- Plan
Initial / Loading Dose: 2000mg - 05/20 11:29
Maintenance Regimen: dosing by level
Monitoring: random 05/21 0600
Pharmacokinetics Vancomycin I
- -
Patient Age: 75
Patient Sex: Female
Vancomycin Day #: 1
Indication: Bacteremia
Requesting Provider: Dr. Heredia / Dr. Gill
Pertinent Antimicrobial Allergies:
neomycin/bacitracin/polymyxin [neosporin] - hives
Height / Weight:
Height 5 ft
Actual Weight 89 kg
Pertinent Past Medical History: BMI ~38, DM, CKD (baseline SCR 2.2-2.4)
- Vital Signs / Lab Results
Temp Pulse Resp BP Pulse Ox
102 F H 140 29 109/91 94
05/20/25 10:29 05/20/25 13:30 05/20/25 13:30 05/20/25 13:30 05/20/25 13:00
Lab Results - Hematology
05/20/25
10:37
WBC 18.8 H
Band Neutrophils 11 H
Lab Results - Chemistry
05/20/25 05/20/25
10:37 11:40
BUN Cancelled 60 H
Creatinine Cancelled 2.8 H
Estimated Creat Clear Cancelled 17
Albumin Cancelled 3.6
05/20/25
11:04
Lactic Acid 7.5 H*
Lab Results - Urine
05/20/25
10:44
Urine Nitrite (Reflex) Negative
Leukocyte Esterase Rfl Negative
Urine WBC (Reflex) 0-2
Ur Squamous Epith Cells 3-5
Urine Bacteria (Reflex) Few A
Microbiology Results
05/20/25 11:15 Influenza Types A & B (BARBIE) - Final
Nasal Swab Negative for Influenza A & B, NAAT
Negative results must be combined with clinical observations
and patient history.
Nucleic Acid Amplification test (NAAT)performed on the
[employer] platform.
[2025-05-20 14:50] LABS: Glucose - Point of Care 219 mg/dl (70-99)
[2025-05-20 14:50] LABS: INR 2.15; PT 24.5 Sec (11.4-14.6)
[2025-05-20] MEDS: LOPRESSOR 2.5 MG IV (14:50)
[2025-05-20 14:51] LABS: APTT 43.1 Sec (23.4-35.0)
[2025-05-20] MEDS: MERREM 500 MG IV (15:31)
[2025-05-20] MEDS: STERILE WATER FOR INJECTION 10 ML IV (15:31)
[2025-05-20 16:43] LABS: Lyme Antibody Screen, EIA Negative (Negative)
[2025-05-20] MEDS: LEVOPHED 250 IV (16:45)
[2025-05-20] MEDS: SUBLIMAZE 50 MCG IV ×2 (16:46→21:29)
[2025-05-20] MEDS: DIPRIVAN 100 IV ×2 (16:46→23:46)
[2025-05-20 16:48] LABS: Lipase 115 U/L (23-300)
[2025-05-20] MEDS: SUBLIMAZE 100 IV (17:00)
--- NOTE | 2025-05-20 17:24 | W.PN.UPDATE ---
Addendum entered and electronically signed by Lamberto Martinez MD 05/20/25 18:41:
Repeat ABG after intubation, , consistent with metabolic acidosis with respiratory compensation
Continue sterile water with bicarbonate infusion
Serial ABG
Will proceed with CT abdomen pelvis with contrast
Original Note:
Update Note
Progress Note Update
Update:
Patient reevaluated multiple times through the evening. Progressively increasing restlessness, tachypnea. Follow-up lactate continues to be elevated at 7.1. Patient on 10 with persistent tachycardia heart rate in 140s to 150s.
Respiratory rate in mid 30s to low 40s. In view of increasing work of breathing, tachypnea, lethargy and restlessness, decision was made to proceed with intubation and mechanical ventilation. CODE STATUS partial DNR, okay to intubate but no
resuscitation or defibrillation.
Additional critical care time spent 42 minutes
--- NOTE | 2025-05-20 17:25 | OR.RPT ---
Operative Report
Operative Report
Right Radial Arterial catheter placement
Informed consent was obtained from patient's . Need for invasive blood pressure monitoring.
Bedside ultrasound was used to confirm patency of right radial artery. Under sterile condition area was subsequently cleaned and a drape was placed. Under direct ultrasound visualization,, radial artery was cannulated. Once blood was noted in the
chamber guidewire was advanced. Arterial catheter was subsequently advanced over the guidewire, and then guidewire was removed. Pressure tubing was subsequently attached to the catheter and arterial waveform was noted on the monitor. Subsequently
a dressing was placed.
Complications: None
Date of service: 05/20/2025
--- NOTE | 2025-05-20 17:30 | OR.RPT ---
Operative Report
Operative Report
Rapid sequence intubation
Indication. Metabolic acidosis, increased work of breathing, tachypnea, worsening encephalopathy.
Consent: Obtained from patient's spouse.
Pre-medications: None
Patient was placed in supine position. Nonrebreather was used to preoxygenate, subsequently [id number] ventilation was applied and patient's pre induction minute ventilation was matched with bagging around 30 times /min. 27 mg of Etomidate was
given as an induction agent followed by 90 mg of Rocuronium as paralytic. GlideScope was used, blade size #3, grade 1 view of vocal cords was obtained and ET tube, 7.5, was advanced under direct visualization without any difficulty. Color change
was confirmed and patient was bagged at about 30/min in view of underlying metabolic acidosis. Subsequently patient was connected to ventilator. Bilateral good air entry noted. Tube was secured at 22 cm at the teeth. Patient tolerated the
procedure well. Ventilator setting 450/30/60%/5.
Time spent: 25 min
Complications: None
Date of Service: 05/20/2025
--- NOTE | 2025-05-20 17:34 | OR.RPT ---
Operative Report
Operative Report
Right IJ Central Line placement
Indication: Shock, need central access for vasopressors
Consent obtained from: Patient's
Time-out was performed and patient was placed in Trendelenburg position. Ultrasound was used to assess patency of right IJ vein. Under sterile conditions area was cleaned with chlorhexidine and then a full body drape was placed. 2 mL of local
anesthesia with lidocaine was injected. Under real-time ultrasound guidance, long axis view, the needle was inserted and vein was punctured, once blood was aspirated, syringe was removed and guidewire was advanced which did not meet any resistance.
Subsequently needle was withdrawn and guidewire was left in place. Ultrasound was used again to confirm presence of guidewire inside the vein lumen. A small fern was placed at the skin and a dilator was advanced to about 50% of its length.
Dilator was removed and central venous catheter was advanced over guidewire and subsequently guidewire was removed. All 3 ports were capped and they were easy to flush and were withdrawing blood without any resistance. Central line was sutured to
the skin and dressing was applied.
Ultrasound of the lungs was performed and good lung sliding was obtained. Patient stayed hemodynamically stable through the procedure.
Complications: None
Blood loss: 1-2 ml
Time spent: 25 min
Date of service: 05/20/2025
[2025-05-20 17:49] LABS: Glucose - Point of Care 252 mg/dl (70-99)
[2025-05-20 18:10] LABS: B.E. -14.1 mmol/L; O2 Saturation % 99.3 % (94-98); PCO2 23 mmHg (32-35); PO2 120 mmHg (83-108)
[2025-05-20 18:19] LABS: HCO3 10.6 mmol/L (21-28)
[2025-05-20 18:32] LABS: Triglycerides 224 mg/dl (10-149)
[2025-05-20] MEDS: NOVOLOG FLEXPEN-LOW RESISTANCE 3 UNITS SC (18:50)
[2025-05-20 18:57] LABS: Hepatitis C Antibody Negative (Negative)
--- NOTE | 2025-05-20 19:40 | PTCARENOTE ---
Received pt @1420 from the ED with RN monitored via stretcher on 4 liters nasal canula with Cardizem drip @ 10mg/hr via right FA#20g protective catheter. She appears very ill and lethargic. She is following simple commands, and answering some
questions but unable to keep her eyes open for any period of time. PERRLA 3 and sluggishly reactive, NAVI 150's on arrival. Doppler radial pulses, No left DP Doppler signal but had left PT Doppler signal. Heels elevated on air pillow. Extremities
mottled, cold w/poor capillary refill. Lungs CTA. Tachypneic. Dry cough. Oral mucosa dry, lips dry and chapped. Hypoactive BSX4. When asked she stated she had several days of diarrhea starting Saturday sometime but none since yesterday. She did not
take any of her oral meds today or eat anything today. She had scattered blue ecchymosis across her abdomen, on her left flank and red/maroon ecchymosis on her left upper inner thigh. Dr. Martinez was present at the bedside when she arrived and
ordered a Aguirre catheter, an amp of HCO3 IVP followed by a drip, 2.5mg IVP Lopressor. He was also notified that I was not able to get a left DP Doppler pulse. She remained in a NAVI 150's with diminishing LOC & tachypnea and Dr. Martinez intubated @
1630 with 7.5 ETT secured at what I was told 22cm but was actually 25cm. She was placed on AC 30/450/.60/+5. Prior to Intubation, Sodium bicarb drip & Cardizem drips were placed on hold and Norepinephrine was initiated @ 5mcg/min, then changed to
Phenylephrine post intubation. Right Nare DHT inserted without difficulty & secured @70cm. Right radial arterial line & right IJ TL CVC placed by Dr. Martinez at the bedside. Fentanyl bolus administered followed by drip & propofol drip started as
ordered via right FA #20g protective catheter. Cardizem drip was turned on again @ [address] Martinez. Abdominal & chest xray obtained for central line, ETT and DHT placement verification. Bilateral soft wrist restraints placed as
ordered. Will send sputum and stool culture if we are able. provided an update at the bedside. ECHO being performed at the bedside @ 1845. Bedside report given to Landon VAZQUEZ and verified drips, ETT & DHT placement. Aspiration precautions
maintained. Safe environment maintained.
[2025-05-20] MEDS: HEPARIN 5000 UNITS SC (19:41)
[2025-05-20] MEDS: OMNIPAQUE 50 ML PO (19:41)
[2025-05-20 20:26] LABS: B.E. -11.9 mmol/L; O2 Saturation % 99.4 % (94-98); PCO2 21 mmHg (32-35); PO2 127 mmHg (83-108)
[2025-05-20 20:28] LABS: HCO3 11.3 mmol/L (21-28)
[2025-05-20] MEDS: PITRESSIN 100 IV (21:06)
--- NOTE | 2025-05-20 21:51 | PTCARENOTE ---
Sodium Bicarb decreased to 50 ml/hr per SHOPPER MARKETING MANAGER.
[2025-05-20 22:47] LABS: Glucose - Point of Care 259 mg/dl (70-99)
[2025-05-20] MEDS: NOVOLOG FLEXPEN 6 UNITS SC (22:50)
--- NOTE | 2025-05-20 23:04 | PTCARENOTE ---
Patient received from off going RN on mechanical ventilation. Pt's on Fentanyl, propofol, Sodium bicarb, Phenylephrine, and Cardizem drip. Propofol placed on hold for assessment. Plan of care for the shift reviewed with the patient. Patient opens
her eyes to verbal and tactile stimuli. Does not follow simple commands. Moves her arms and toes. Pupils are +3 and reactive. Afib on the monitor with HR in the 115-120s. DPs and PTs are present to bilateral lower extremities. Clear breath sounds.
Patient suctioned for large amount of thick sputum. SpO2 at 98% on ventilator setting AC 450/30/+5/60%. RT at the bedside and FiO2 decreased to 50%. #7 ETT is at 21 at the lip. abdomen is obese. Bruises noted to left flank, abdomen, and thigh. Lands
drawn and sent. Vasopressin to be initiated per MD at 0.03 units/min. Oral contrast completed and Patient transported to CT at ~2150. Returned to the patient's room ~2240. Insulin administered for BG 259. All drips transferred to the right IJ TLC
post tube change. Aguirre care completed. Restraints are in use. Drips titrated according to protocol. Patient turned and repositioned.
[2025-05-21] MEDS: NOVOLOG FLEXPEN-HIGH RESISTANCE SC (00:49)
[2025-05-21 02:09] LABS: Glucose - Point of Care 258 mg/dl (70-99)
[2025-05-21 02:11] LABS: B.E. -6.4 mmol/L; O2 Saturation % 99.7 % (94-98); PCO2 20 mmHg (32-35); PO2 132 mmHg (83-108)
[2025-05-21] MEDS: CARDIZEM 125 IV ×2 (02:12→14:30)
[2025-05-21] MEDS: NOVOLOG FLEXPEN 7 UNITS SC (02:14)
[2025-05-21 02:17] LABS: O2 Therapy 21
[2025-05-21 02:18] LABS: HCO3 14.6 mmol/L (21-28)
[2025-05-21] MEDS: MERREM 500 MG IV ×3 (04:09→23:02)
[2025-05-21] MEDS: STERILE WATER FOR INJECTION 10 ML IV ×3 (04:10→23:03)
[2025-05-21] MEDS: HEPARIN 5000 UNITS SC ×3 (04:10→20:45)
[2025-05-21 04:56] VITALS: BP 94/62
--- NOTE | 2025-05-21 04:56 | PTCARENOTE ---
Patient reassessed. Opens eyes to tactile stimuli. Grimaces and bites down on ETT with suctioning. Controlled Afib on the monitor with HR in the 90s. Patient cleaned and linens changed. turns and repositioning continued. Safety measures maintained.
[2025-05-21] MEDS: DIPRIVAN 100 IV (05:12)
[2025-05-21] MEDS: PITRESSIN 100 IV (05:12)
[2025-05-21 05:27] LABS: Glucose - Point of Care 249 mg/dl (70-99)
[2025-05-21 05:53] LABS: B.E. -10.2 mmol/L; O2 Saturation % 99.1 % (94-98); PCO2 22 mmHg (32-35); PO2 126 mmHg (83-108)
[2025-05-21 05:57] LABS: HCO3 13.0 mmol/L (21-28); O2 Therapy VENT
[2025-05-21 06:00] VITALS: BMI 38.9
[2025-05-21] MEDS: NOVOLOG FLEXPEN-HIGH RESISTANCE 4 UNITS SC ×4 (06:03→23:14)
[2025-05-21 06:38] LABS: Troponin I 0.617 ng/ml
[2025-05-21 06:40] LABS: ALT (SGPT) 217 U/L (0-35); AST (SGOT) 400 U/L (14-36); Albumin 1.6 g/dl (3.5-5.0); Alkaline Phosphatase 80 U/L (38-126); Blood Urea Nitrogen 53 mg/dl (7-17); Calcium 5.6 mg/dl (8.4-10.2); Carbon Dioxide 14 mmol/L (22-30); Chloride 114 mmol/L (98-107); Estimated Creatinine Clearance 33 ml/min; Glucose 171 mg/dl (70-99); Magnesium 1.6 mg/dl (1.6-2.3); Potassium 3.1 mmol/L (3.5-5.1); Sodium 134 mmol/L (135-145); Total Protein 3.8 g/dl (6.3-8.2); eGFR 38.75
[2025-05-21] MEDS: NEO-SYNEPHRINE 250 IV (06:42)
[2025-05-21 07:00] LABS: Hematocrit 41.5 % (37.0-47.0); Hemoglobin 14.4 g/dL (12.0-16.0); Mean Corp Hgb Conc. 34.7 g/dL (33.0-37.0); Mean Corpuscular Volume 97.4 fL (81.0-99.0); Platelet Count 128 10^3/uL (130-400); Red Cell Dist. Width 15.3 % (11.5-14.5)
--- NOTE | 2025-05-21 07:09 | W.PN.INTV ---
Today's Communication / Plan
Recommendations
Remains intubated, SBT trials
Resume digoxin given HR
Wean off sedation/pressors
IV abx per ID, cultures pending
Sputum culture
Reviewed case with at bedside
Assessment
-
Patient is a 75-year-old female with complicated past medical cardiac history including aortic stenosis, mitral stenosis, status post Watchman procedure, coronary artery disease status post PCI and congestive heart failure with preserved ejection
fraction who presents to emergency room with progressive weakness over the last few days. She was evaluated in the emergency room couple of days ago for lower abdominal pain and had a CT scan which was unremarkable. Patient's reports that
over the last 24 to 48 hours she has been progressively getting weaker at home and having increasing difficulty getting up. Today he noted fever as well as change in her breathing pattern. He was unable to get her off the couch and called EMS and
patient was brought to the emergency room. She was noted to be quite tachycardic febrile with borderline blood pressure. Patient reportedly vomited twice the day before and reports feeling nauseous. Additional workup was suggestive of elevated
lactate, metabolic acidosis. In view of her rapid ventricular rate, cardiology service evaluated the patient in the emergency room, she was given a dose of digoxin and then started on Cardizem infusion. Patient was subsequently admitted to ICU in
the setting of severe sepsis with metabolic acidosis, elevated lactate and thread laster consult was requested for further input.
Staphylococcus bacteremia
Severe sepsis, ?source
LLL consolidation possible pneumonia
Metabolic acidosis, elevated lactate
EMILY on CKD with hyperkalemia.
SVT/Atrial Fibrillation with RVR
HFrEF, acute on chronic
Abnormal LFTs
TME
Severe pulm HTN, progressed
Other medical diagnoses:
History of aortic stenosis, s/p TAVR in 2018
H/o CAD, s/p LAD PCI which jailed diagonal branch 2015, residual 1st diag stenosis 60-70%, stable by cath 02/2019
Paroxysmal atrial fibrillation/chronic OAC with eliquis
Status post PVI 2011, 2012
S/p Watchman procedure
Pulmonary HTN
CKD
Hypertension
Hyperlipidemia
IDDM
History of breast cancer status postlumpectomy and radiation therapy
Moderate mitral stenosis
Obesity
Right foot surgery
Rectal fissure
Plan
Wean sedation, fent bolus
Add precedex
Rass goal 0
Wean pressors to off, s/p 1.5 L fluid bolus in ED
SVT/Atrial Fibrillation with RVR history/Status post Watchman procedure, not on anticoagulation at home
Cardiology service consulted
Patient on cardizem infusion and also received Digoxin IV
Heart rate in 160s in the ICU, give Lopressor 2.5 mg IV stat. Currently on Cardizem infusing at 10 mg/h, cardiology service on case
Resume digoxin given amio allergy, check AM levels
HFrEF/X-ray suggestive of developing pulmonary congestion
BNP elevated at 27,000, eventual diuresis will be needed
H/o CAD, s/p PCI (2015)
Pulmonary HTN
- Pulmonary artery systolic pressure of 74 on echo in August 2024. Also reduced RV systolic function with enlarged size.
- Suspect group II pulmonary hypertension in the setting of prior history of severe aortic stenosis s/p TAVR, currently has moderate mitral stenosis as well as heart failure with preserved ejection fraction
- Right heart cath in 2018 had a pulmonary capillary wedge pressure of 30 and mean pulmonary artery pressure of 37.
- No prior history of known pulmonary disease
- Presence of pulmonary hypertension with RV dysfunction puts her at high risk of cardiovascular collapse with intubation and mechanical ventilation
Intubated due to distress/WOB
Vent settings noted, PS wean this AM--failed after 1 hour
Repeat ABG as needed
Repeat CXR showing possible LLL findings
Will obtain sputum culture
NPO for now
Abnormal LFTs - Suspect acute abnormality in AST ALT in the setting of severe sepsis
Await PT, INR and PTT
SA bacteremia, await final on culture
Broad spectrum antibiotics, IV Vancomycin, Meropenem
ID consult
Serial lactate
F/u on cultures
ID service on case. CXR and U/A not suggestive of infection
History of lower back pain, will pursue additional imaging once patient is more stable
EMILY on CKD with hyperkalemia.
pH 7.18, elevated lactate at 7.8. Stat sodium bicarbonate push followed by sterile water with Bicarbonate infusion
- Serial lactate, ABG, monitor I/O
- Place moore
- Home dose of Lasix, potassium and Jardiance
IDDM
- Continue insulin as ordered
- Hold Jardiance and repaglinide
SS insulin PRN
Family Discussions
Juan 05/20/2025: I met with patient in the respite room, later at bedside. We went over patient's current condition. He expressed that patient had expressed to him that she would not want to be on life support for a long period of time
and would not want chest compressions or shocks. We discussed various code options including full code DNR, DNI. Patient has been opted to proceed with limited DNR, including okay to intubate if needed for respiratory reason but not to pursue
chest compressions or defibrillation in the setting of cardiac arrest. CODE STATUS updated
Data:
CXR 04/2025: No evidence of pneumonia. Slight prominent bronchovascular markings and mild bronchial wall thickening, which could indicate an element of mild interstitial edema or possibly viral respiratory syndrome.
CT Abd/pelvis 04/2025: No acute pathology of the abdomen or pelvis identified. Tiny fat-containing umbilical hernia. No evidence of incarceration or strangulation. Stable. Gallstones. Enlarged.
Mild diverticulosis. Stable Mild diffuse bladder wall thickening. This can be seen with cystitis or bladder outlet obstruction. Stable Mild free fluid in the pelvis. New. Uncommon in a postmenopausal female. Etiology unknown.
ECHO 05/20/25- Small left ventricle with mild to moderate left ventricular hypertrophy and septal straightening related to RV pressure overload. The ejection fraction is 60%.
2. Mild mitral stenosis with leaflet calcification and dense mitral annular calcification. Mean mitral valve gradient is 5 mmHg. There is mild mitral regurgitation and left atrial dilatation.
3. Transcatheter aortic valve with peak and mean gradients of 9 and 5 mmHg. No aortic regurgitation.
4. Dilated and hypokinetic right ventricle with dilated right atrium, severe tricuspid regurgitation, and severe pulmonary artery systolic pressure, 90 mmHg systolic.
5. In August 2024 there was mild LVH with an ejection fraction of 55 to 60%. Peak and mean mitral valve gradients were 20 and 7.3 mmHg. No mitral regurgitation was seen. The left atrium was normal. Peak and mean aortic valve gradients across the
transcatheter aortic valve were 35 and 18 of mercury. The pulmonary artery systolic pressure was 74 mmHg. The RV was dilated and hypokinetic.
ECHO 08/2024: Normal left ventricular size and systolic function. Mild concentric LVH. No regional wall motion abnormalities are seen. LV ejection fraction is 55-60% by Springer's method of discs. Diastolic function indeterminate due to atrial
fibrillation. Calcified mitral valve leaflets with decreased excursion. Mild to moderate mitral stenosis. Peak/mean gradients across the mitral valve are 19.9 7.3 mmHg respectively. No mitral regurgitation is seen. Normal left atrial size.
Indexed LA volume is within normal range (15-34 mL/m2). TAVR with peak/mean gradients across the aortic valve are 34.6/18 mmHg respectively. No aortic regurgitation is seen. Tricuspid valve opens normally. Moderate tricuspid regurgitation.
Estimated pulmonary artery pressure of 74 mmHg. Assuming a right atrial pressure of 8 mmHg. Enlarged right atrium. Enlarged right ventricular size. Reduced right ventricular systolic function. Since echocardiogram 08/20/2023, there is no
significant change. Mean pressure
gradient across TAVR is increased slightly from 8 mmHg to 18 mmHg.
-----
Critical Care time 45 mins -- The patient is admitted for acute critical illness for the treatment of vital organ failure and/or prevention of further life-threatening conditions. Total care includes time spent in review of history, physical exam,
medications, hemodynamic/ventilator parameters, laboratory data, imaging and discussion with house staff, pharmacy, respiratory therapy, sandal parts assembler, and nursing.
Subjective Dataa
Subjective Data
Date of Service:
Date of Service: May 21, 2025
Chief Complaint: Neurosurgical Nurse Follow Up
Subjective:
Remains intubated, now off sedation and pressors
Objective Data
Data Reviewed
Vital Signs / I&O / Oxygen:
Vital Signs
Temp Pulse Resp BP Pulse Ox
98.4 F 89 30 81/60 97
05/21/25 03:07 05/21/25 00:40 05/21/25 00:40 05/20/25 17:05 05/21/25 04:00
Intake and Output
05/20/25 05/21/25 05/22/25
06:59 06:59 06:59
Intake Total 2429.0 / 2429.0
Output Total 1215 / 1215
Balance 1214.0 / 1214.0
SaO2 [A/C] 97
SaO2 97
Nasal Cannula flow liters per 4
minute
Physical Exam
General: Comfortable and Other (NAD)
HEENT: Normocephalic, Anicteric and Moist Mucous Membranes
Cardiovascular: S1-S2 and Regular Rhythm
Respiratory: Crackles, Non-Labored Respirations and ET Tube
GI: Soft, Non Distended and Non Tender
Neurology: Awake, No Motor Deficits and Lethargic (-3)
Skin: Warm, Dry and Good Color
Labs/Micro/Reports
Lab Data
05/21/25 05:35
05/21/25 05:35
Laboratory Results
05/20/25 05/20/25 05/20/25
13:05 14:31 17:56
PT 24.5 H
INR 2.15
APTT 43.1 H
pH Cancelled 7.27 L
pCO2 Cancelled 23 L
pO2 Cancelled 120 H
HCO3 Cancelled 10.6 L*
O2 Delivery Level Cancelled
05/20/25 05/21/25 05/21/25
20:20 02:01 05:35
PT
INR
APTT
pH 7.34 L 7.47 H 7.38
pCO2 21 L 20 L 22 L
pO2 127 H 132 H 126 H
HCO3 11.3 L* 14.6 L* 13.0 L*
O2 Delivery Level 21 Vent
Microbiology
05/20/25 11:03 Blood/Venous Blood Culture - Preliminary
Positive culture in progress
05/20/25 11:03 Blood/Venous Gram Stain - Preliminary
05/20/25 11:03 Blood/Venous Blood Culture - Preliminary
Positive culture in progress
05/20/25 11:03 Blood/Venous Gram Stain - Preliminary
05/20/25 12:36 Blood/Venous Blood Parasites Smear - Final
05/20/25 11:15 Nasal Swab Influenza Types A & B (BARBIE) - Final
Negative for Influenza A & B, NAAT
Negative results must be combined with clinical observations
and patient history.
Nucleic Acid Amplification test (NAAT)performed on the
[employer] platform.
--- NOTE | 2025-05-21 07:26 | W.PN.HOSP.TC ---
Addendum entered and electronically signed by Pedro Cespedes MD 05/21/25 20:23:
Attending Addendum-
I saw and evaluated the patient. I reviewed the resident�s note and agree with findings and plan as documented in the resident�s note. Sub: Intubated and sedated ROS unable to be reviewed due to sedation. Exam: Vitals reviewed in chart GEN-sedated
HEENT ET tub NG tube in place heart irreg irreg lungs decreased BS @ bases abd soft pos BS LE +1 pitting edema B/L moore in plcae with concentrated urine. lines: right radial art line, right IJ central line
Plan:
-Septic Shock with unknown source with VDRF and staph bacteremia
-possible LLL PNA
-intubated 05/20- failed extubation attempt 05/21
-blood parasites, Ehrlichia and Lyme -P
-blood cultures x 2 - staph aureus - sensi pending
-repeat blood cx, check resp cx, check MRSA
-has h/o back pain per records- t/c MRI
-cont meropenem and vancomycin
-weaned off pressors and sedation, maintain MAP > 65
# Atrial Fibrillation with RVR
-cont Diltiazem gtt titrate according to HR
-has Watchman
-hold CASE ASSEMBLER Diltiazem 180mg PO BID; Metoprolol XL 100mg PO BID
-Cardiology input appreciated
# Probable AE HFpEF
-TTE 05/20-Small left ventricle with mild to moderate left ventricular hypertrophy and septal straightening related to RV pressure overload. The ejection fraction is 60%.
-hold CASE ASSEMBLER Lasix
-hold off on diuresis for now per cards
# Hyperkalemia-resolved
# Hypokalemia-replete
# Acute on CKD [id number]
-resolved
-baseline creatinine 2.2-2.4
-CTM closely
# IDDM
-CASE ASSEMBLER Toujeou->lantus
-FOf2n-1.9
-cont SSI
-hold CASE ASSEMBLER Jardiance
-hold CASE ASSEMBLER Repaglinide
#Transaminitis
-worsening
-from sepsis
-CTM
# Thrombocytopenia-from sepsis CTM
# Hyponatremia- resolving s/p IVF CTM closely
# HAGMA- from lactic acidosis- cont IVF with bicarb- CTM
# Hypocalcemia-replete
# NIMI- cont to trend troponin echo as above cards input appreciated
DVT PPx Hep subQ
FULL CODE->limited code only intubation
CC Note
Due to a high probability of clinically significant, life-threatening deterioration, the patient required a high level of preparedness to intervene emergently. I personally spent this critical care time directly and personally managing the patient.
This critical care time included obtaining a history; examining the patient; ordering and review of studies and STAT labs; arranging urgent treatment with development of a management plan; evaluation of patient's response to treatment; reassessment;
and, discussions with other providers.
This critical care time was performed to assess and manage the high probability of imminent, life-threatening deterioration that could result in multi-organ failure. It was exclusive of separately billable procedures and treating other patients and
teaching time.
Total critical care time: Approximately 38 minutes
Original Note:
Today's Communication/Plan
-
Continue antibiotics
Wean Ventilator support/extubate as possible
Wean off pressors as possible
Continue controlling heart rate/monitoring for any arrhythmia
Assessment / Plan
Assessment / Plan
Assessment:
75-year-old female with a past medical history of paroxysmal A-fib post Watchman procedure, aortic stenosis, mitral stenosis, coronary artery disease post PCI and congestive heart failure with preserved ejection fraction presented to the emergency
room due to progressive weakness over the past few days. She had been in the emergency room here few days ago and was evaluated for lower abdominal pain. CT scan at that time was unremarkable and patient was discharged home. As per the patient's
, patient had been increasingly getting weaker at home and even had trouble getting up. He noticed fever as well as some difficulty breathing alongside vomiting and nausea. Decided to call EMS to go back to the hospital. In the ED she was
found to have elevated lactate, and metabolic acidosis with anion gap. She also had rapid ventricular rate and was given a dose of digoxin and started on Cardizem infusion. Due to the severe sepsis, septic shock, patient was admitted to the ICU.
While in the ICU, she had persistent kidney tachycardia and low respiratory rate. Because of the increased work of breathing, tachypnea, lethargy and restlessness, patient was intubated.
Plan:
#Septic Shock from unknown source
- 1.5 ltr fluid bolus in ED
- Lactate elevated but coming down
- Broad spectrum antibiotics while awaiting cultures, IV Vancomycin, Meropenem
- Requiring intubation, 2 pressor support with Phenylephrine and Vasopressin
- F/u on cultures, preliminary cultures grew Staph aureus, source unknown
- ID consulted, input appreciated
- CT Abd/Pelv: Confluent parenchymal opacity within the inferior aspect of the left lower lobe of the lung, new since CT of May 18, 2025, morphologic appearance most suggestive of pneumonia. Confluent atelectasis is a differential consideration.
Patchy parenchymal opacity within the visualized right lower lobe of the lung, with main differential considerations of pneumonia and/or atelectasis.
Moderate subcutaneous edema, greatest in the lateral flanks.
- Lower back pain, would want MRI of back later when stable
#Acute hypoxic respiratory failure secondary to septic shock
- Requiring ventilator support
- Settings: 450TV, Rate 20, PEEP 5, FiO2 50%
- Wean and extubate as possible
# Metabolic acidosis, elevated lactate
- Suspected related to underlying severe sepsis
- pH 7.18, elevated lactate at 7.8. Stat sodium bicarbonate push followed by sterile water with Bicarbonate infusion
- Resolved following intubation
- Serial lactate, ABG.
# EMILY on CKD with hyperkalemia.
- In the setting of severe sepsis
- Sodium bicarbonate infusion as above, serial labs, monitor I/O
- Placed moore
- Home dose of Lasix, potassium and Jardiance
- Creatinine improved (2.8 -> 1.4)
# SVT/Atrial Fibrillation with RVR
- Cardiology service consulted, input appreciated
- Patient on cardizem infusion and also received Digoxin IV
- Worsened tacychardia most likely from severe sepsis
- Heart rate in 160s in the ICU, give Lopressor 2.5 mg IV stat. Currently on Cardizem infusing at 10 mg/h, cardiology service on case
- Status post Watchman procedure, not on anticoagulation at home
#Non-ischemic cardiomyopathy
- Troponins continue to increase, most likely from increased demand from severe sepsis
- Continue to trend
# HFrEF
- X-ray suggestive of developing pulmonary congestion
- S/p 1.5 L in the emergency room
- Starting sterile water with sodium bicarbonate in view of metabolic acidosis and pH below 7.2
- Careful of initiating further fluid therapy
- BNP elevated at 27,000
#Hypercalcemia
-5.6 today
-Monitoring and repeleting as necessary
#Hypokalemia
-Dropped to 3.1
-Monitoring and repeleting as necessary
#Hypoproteinemia
-Albumin + Protein levels low, replete with Albumin infusion
# IDDM
- Continue insulin as ordered (Glarging 16 units, Sliding Scale High resist)
- Hold Jardiance and repaglinide
# Transaminitis
- Suspect acute abnormality in AST ALT in the setting of severe sepsis
- Await PT, INR and PTT
- Continue monitoring liver enzymes
# H/o CAD, s/p PCI (2016)
- Elevated troponin noted, likely in the setting of severe sepsis
- Cardiology service on case
# History of breast cancer status postlumpectomy and radiation therapy
- Takes Letrozole (Femara) at home, holding in setting of severe sepsis
DVT Prophylaxis: Heparin
Code: limited DNR, including okay to intubate if needed for respiratory reason but not to pursue chest compressions or defibrillation in the setting of cardiac arrest
Anticipated Discharge: > 48 hours
Subjective/Interval History
-
Date of Service: May 21, 2025
Patient seen this morning. She was intubated, on multiple pressor support. Cold clammy to the touch, lungs sounded clear, was in A-fib. Resting and not arousable at this time.
Objective Data
-
Labs:
Laboratory Results
05/20/25 05/20/25 05/21/25
13:05 20:20 02:01
WBC
Hgb
Hct
Plt Count
HCO3 Cancelled 11.3 L* 14.6 L*
Sodium
Potassium
Chloride
Carbon Dioxide
BUN
Creatinine
Glucose
Calcium
Total Bilirubin
AST
ALT
Alkaline Phosphatase
05/21/25
05:35
WBC 18.6 H
Hgb 14.4
Hct 41.5
Plt Count 128 L D
HCO3 13.0 L*
Sodium 134 L
Potassium 3.1 L D
Chloride 114 H
Carbon Dioxide 14 L*
BUN 53 H
Creatinine 1.4 H
Glucose 171 H
Calcium 5.6 L* D
Total Bilirubin 2.0 H
AST 400 H
ALT 217 H
Alkaline Phosphatase 80
Vital Signs:
Vital Signs
Temp Pulse Resp BP Pulse Ox
98.4 F 89 30 81/60 97
05/21/25 03:07 05/21/25 00:40 05/21/25 00:40 05/20/25 17:05 05/21/25 04:00
I&O
05/20/25 05/21/25 05/22/25
06:59 06:59 06:59
Intake Total 2429.0 / 2429.0
Output Total 1215 / 1215
Balance 1214.0 / 1214.0
Review of Systems
-
Unable to obtain full review of systems at this time due to: Patient Intubation
Physical Exam
-
General: Intubated
HEENT: Normocephalic and Atraumatic
Respiratory: Other (Intubated, no acute findings on auscultation)
Cardiac: S1/S2 and Irregular Rhythm (A-fib)
GI: Soft and Nondistended
Musculoskeletal: No Clubbing, No Cyanosis and No Edema
Skin: Dry
Neuro: Sedated and Other (Intubated)
Data Reviewed
-
CT Scan: Report Reviewed by me, Discussed with Physician and Discussed with Nurse
Labs: Labs Reviewed by me, Discussed with Physician and Discussed with Nurse
[2025-05-21 07:50] LABS: Nucleated Red Blood Cells % 0.6 %
[2025-05-21] MEDS: LANTUS 0.16 UNITS SC (08:23)
[2025-05-21] MEDS: KCL 270 MEQ IV (08:25)
--- NOTE | 2025-05-21 08:30 | W.PN.CARDCBS ---
Today's Communication / Plan
-
Continue IV diltiazem, A-fib currently controlled
Continue IV phenylephrine as needed for blood pressure support
Supportive care per hospitalist and critical care
Impression / Plan
-
Primary Tech Brazer Tester: Dr. Baez
Assessment:
Severe sepsis with shock with multisystem organ failure and Staph aureus bacteremia
Permanent atrial fibrillation, presently with RVR
s/p PVI 2011, 2012
S/p Watchman implant 06/04/2023 (post watchman ROBERT 07/17/2023 stable)
Suspected acute on chronic HFpEF
Elevated troponin
s/p TAVR 04/2019
Moderate MS by echo 05/2022
CAD s/p LAD PCI which jailed diagonal branch 2015, residual 1st diag stenosis 60-70%, stable by cath 02/2019
CKD3B
HTN
HLD
DM2
Obesity
History of hives with amiodarone
H/O GIB w/ anemia
History of ER+ breast cancer s/p L lumpectomy/XRT, on letrozole
Echo 09/19/2024: EF 55 to 60%, mild concentric LVH, mild to moderate MS with peak/mean gradients 20/7 mmHg, TAVR with peak/mean gradients 35/18 mmHg, no AR, moderate TR, PAP 74 mmHg, enlarged RA and RV with reduced RV systolic function
Plan:
She looks much better today. Heart rate is now controlled on IV diltiazem. Vasopressin has been stopped, sedation is being weaned. She is now on only a low-dose of phenylephrine with a blood pressure that is acceptable. She remains on
bicarbonate and still has a substantial metabolic acidosis. Her proBNP was markedly elevated.
Hopefully to be extubated today.
Bilirubin and creatinine have both dropped substantially.
Her echo confirms preserved systolic function but her pulmonary pressure is extremely high, but was also very high in August. She has severe tricuspid regurgitation.
At this point, despite her elevated proBNP I would be reluctant to give diuretics. Will defer to renal in this regard.
At this point she has a nonischemic myocardial injury with a modest troponin elevation.
Continue IV diltiazem and phenylephrine.
Continue antibiotics. She has a staff aureus bacteremia. This is of concern with a history of TAVR and mitral stenosis. Continue vancomycin for now, defer changing antibiotic regimen to primary team and critical care. Based on clinical course we
can decide if there is utility to transesophageal echo.
Progress Note - Tech Brazer Tester
Subjective
Date of Service: May 21, 2025:
75-year-old woman admitted with clinical sepsis in the setting of permanent atrial fibrillation, now with hypotension and rapid ventricular response, history of CKD with baseline creatinine 2.7. Seen in the emergency department on 05/18 with lower
abdominal pain, CT scan of abdomen and pelvis was relatively unremarkable, small gallstones, bladder wall thickening
PMH: CKD 3B, history of #26 CoreValve TAVR 2018, permanent atrial fibrillation, Watchman, hypertension, type 2 diabetes, mitral stenosis with peak/mean gradient 20 and 7.25 August 2024, CAD, drug-eluting stent to LAD, jailed diagonal branch, PVI
2011 and 2012, history of GI bleeding, hypertension, type 2 diabetes, left breast cancer with lumpectomy and XRT, hyperlipidemia, severe pulmonary hypertension
Allergies: Amiodarone
Current medications: IV fentanyl, propofol, Demetris-Synephrine, diltiazem, vasopressin, letrozole, vancomycin, meropenem, MiraLAX, aspirin 81 mg daily, pantoprazole, subcu heparin, insulin, IV potassium
94/62, pulse 92, respiratory rate 20, afebrile, Intake and output 2.5/1.3 L, weight is 90.4 kg, was 85.7 kg hide May 18
Chest x-ray: Infiltrate, cardiomegaly, vascular congestion
Echo 05/20/2025: Small ventricle, mild to moderate LVH, septal straightening, EF 60%, mild mitral stenosis dense MAC, mean mitral valve gradient 5 with mild MR, dilated left atrium, transcatheter aortic valve, peak and mean gradients 9 and 5 mmHg,
dilated hypokinetic RV, severe TR, pulmonary artery systolic pressures 90. August 2024 EF was 55 to 60%, pulmonary artery systolic pressure was 74, mean mitral valve gradient was 7, RV was dilated and hypokinetic
White count 18.6, hemoglobin 14.4, platelets are 128, left shift 7.3 05/14/126/13 base excess -10.2, venous pH is 7.18, sodium is 14, anion gap is 6, BUN and creatinine are 53 and 1.4, creatinine had been 2.8, magnesium is 1.6, bilirubin is 2, had
been 2.9, AST is 400, ALT is 217, had been to 79 and 127, proBNP is greater than 27,000, albumin is 1.6, troponin is 0.617
ECG: Atrial fibrillation, low voltage precordial leads, septal infarct, nonspecific ST-T wave changes, right axis deviation possible lateral infarct
Objective
Labs:
05/21/25 05:35
05/21/25 05:35
Labs
Hgb 14.4 g/dL (12.0-16.0) 05/21/25 05:35
Hct 41.5 % (37.0-47.0) 05/21/25 05:35
Plt Count 128 10^3/uL (130-400) L D 05/21/25 05:35
PT 24.5 Sec (11.4-14.6) H 05/20/25 14:31
INR 2.15 05/20/25 14:31
APTT 43.1 Sec (23.4-35.0) H 05/20/25 14:31
Sodium 134 mmol/L (135-145) L 05/21/25 05:35
Potassium 3.1 mmol/L (3.5-5.1) L D 05/21/25 05:35
BUN 53 mg/dl (7-17) H 05/21/25 05:35
Creatinine 1.4 mg/dL (0.6-1.0) H 05/21/25 05:35
Glucose 171 mg/dl (70-99) H 05/21/25 05:35
Troponins
05/20/25 05/20/25 05/21/25
10:37 11:40 05:35
Troponin I Cancelled 0.151 H* 0.617 H*
Vital Signs and I&O:
Vital Signs
Temp Pulse Resp BP Pulse Ox
36.9 C 92 20 94/62 94
05/21/25 03:07 05/21/25 07:25 05/21/25 07:25 05/21/25 04:56 05/21/25 08:00
Vital Signs
Temp Pulse Resp BP Pulse Ox
36.9 C 92 20 94/62 94
05/21/25 03:07 05/21/25 07:25 05/21/25 07:25 05/21/25 04:56 05/21/25 08:00
Intake & Output
05/19/25 05/20/25 05/21/25 05/22/25
07:59 07:59 07:59 07:59
Intake Total 2458.2 / 2487.4 29.2 / 29.2
Output Total 1240 / 1265
Balance 1218.2 / 1222.4 4.2 / 4.2
Physical Exam
Physical Exam
See above
[2025-05-21] MEDS: NSS (PRESERVATIVE FREE) 10 ML IV (08:50)
[2025-05-21] MEDS: CALCIUM GLUCONATE 100 IV (08:50)
[2025-05-21] MEDS: MIRALAX 17 GRAMS TUBE (08:50)
[2025-05-21] MEDS: LOW STRENGTH ASPIRIN 81 MG TUBE (08:50)
[2025-05-21] MEDS: PROTONIX IV 40 MG IV (08:50)
[2025-05-21 08:54] LABS: Glycohemoglobin (HgbA1c) 9.9 % (4.0-5.6)
[2025-05-21 09:45] VITALS: BP_SYST 125
[2025-05-21 09:54] VITALS: BP_SYST 133
[2025-05-21 10:15] VITALS: BP_SYST 122
--- NOTE | 2025-05-21 10:33 | PTCARENOTE ---
Propofol+Fentanyl+Demetris+Vasopressor off; Patient on Wean Trial 5/5/40%. from 9:45 to 10:45; At 10:45 RR 32-36 Afib 156 RASS -3. placed back to AC mode .
[2025-05-21 11:32] LABS: Troponin I 0.783 ng/ml
--- NOTE | 2025-05-21 11:38 | CM ---
A-Fib, IDDM, vented: Initial assessment completed with . Patient lives with in a 1 story plus basement home with 1 step to enter. 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 There is a rollator and SPC in the
home. She has an product marketing director weekly through Dr. Lam's office in [place]. Does have HC-POA. No VA benefits. No psychiatric hospitalizations. PCP is Dr. Katie Iyer. Pharmacy is [facility] in [place]. Discharge POC: TBD. with medical
progression.
[2025-05-21] MEDS: SUBLIMAZE 50 MCG IV ×4 (11:51→17:18)
[2025-05-21] MEDS: LANOXIN 250 MCG IV ×2 (11:56→17:19)
--- NOTE | 2025-05-21 12:45 | W.PN.ID1 ---
Date of Service
Date of Service: May 21, 2025
Today's Communication
Continue antibiotics.
Assessment / Plan
S. aureus sepsis / bacteremia
Fever
Lactic acidosis; improved
Leukocytosis
EMILY on CKD
Exac CHF
Elevated AST and ALT
A-fib
CAD
Hx left breast CA
HTN
HLD
DM type II (uncontrolled; HbA1c = 9.9)
Valvular disease (AAS, MR)
Vertigo
Diverticulitis
Recommendations:
Continue with empiric vancomycin. Follow levels closely to prevent nephrotoxicity.
Continue meropenem 500 mg q.12 IV.
Follow creatinine and EST CrCl closely for further dosing adjustment.
Blood cultures now with Staph aureus. Repeat blood cultures ordered.
No significant findings in the low back on recent CT scan. Would consider MRI when patient is more stable.
Trend lactate.
Follow white count and temperature curve.
Patient currently critically ill in intensive care unit on vent.
����������������������������������������������������������
Chief Complaint
-: Leukocytosis and Clinical Sepsis
Subjective / Review of Systems
Patient seen and examined. On vent at this time. Since admission, blood cultures have turned positive for Staph aureus (identified by PCR methodology)
Review of Systems: No Fever
Vital Signs / Physical Exam
Vital Signs
Vital Signs
Temp Pulse Resp BP Pulse Ox
98.4 F 113 45 94/62 91
05/21/25 03:07 05/21/25 11:56 05/21/25 10:20 05/21/25 04:56 05/21/25 10:20
Physical Exam
Constitutional: Acutely Ill, Toxic and Obese
Head: Other (ET tube in place)
Eyes: No Conjunctival Hemorrhage and Sclera Anicteric
Cardiovascular: Irregular Rate (Tachycardic) and S1/S2; Negative S3/S4
Pulmonary: Coarse and Other (On vent); Negative Wheezes
Gastrointestinal: Soft and Non Tender
Genito-Urinary: Aguirre
Extremities: Negative Edema, Cyanosis or Splinter Hemorrhage
Musculoskeletal: Other (Foot/toe movement with plantar touch)
Skin: Warm and Dry
Neurological: Other (Responsive to touch.)
Objective Data
Lab Data
Lab Results
05/21/25 05:35
05/21/25 05:35
PT 24.5 Sec (11.4-14.6) H 05/20/25 14:31
INR 2.15 05/20/25 14:31
APTT 43.1 Sec (23.4-35.0) H 05/20/25 14:31
Estimated Creat Clear 33 ml/min 05/21/25 05:35
Lactic Acid 2.5 mmol/L (0.7-2.0) H 05/21/25 09:51
Total Bilirubin 2.0 mg/dl (0.2-1.3) H 05/21/25 05:35
AST 400 U/L (14-36) H 05/21/25 05:35
ALT 217 U/L (0-35) H 05/21/25 05:35
Alkaline Phosphatase 80 U/L (38-126) 05/21/25 05:35
Most recent labs reviewed.
Micro Results:
05/20/25 11:03 Blood Culture - Preliminary
Blood/Venous Staphylococcus aureus
Gram Stain - Preliminary
05/20/25 11:03 Blood Culture - Preliminary
Blood/Venous Staphylococcus aureus
Gram Stain - Preliminary
05/21/25 10:38 Respiratory Culture - Pending
Sputum Gram Stain - Pending
05/20/25 12:36 Blood Parasites Smear - Final
Blood/Venous
05/20/25 11:15 Influenza Types A & B (BARBIE) - Final
Nasal Swab Negative for Influenza A & B, NAAT
Negative results must be combined with clinical observations
and patient history.
Nucleic Acid Amplification test (NAAT)performed on the
[employer] platform.
Imaging:
05/18/2025 CT abdomen/pelvis without contrast: no acute pathology of the abdomen or pelvis identified. Tiny fat-containing umbilical hernia. Unenhanced liver, spleen and pancreas are unremarkable. Few small gallstones noted in the gallbladder. No
significant lymphadenopathy. Mild diverticulosis noted.
--- NOTE | 2025-05-21 12:53 | PHA.VAN.FU ---
Vancomycin Assessment / Plan
- Assessment
Renal Function: SCR Decreasing
WBC's are: Stable
In the past 24 hrs, patient has been: Afebrile
Concomitant Antimicrobials: meropenem
- Assessment - Therapeutic Drug Monitoring
Random Level: 15.5 - drawn ~18H after 2g loading
specimen not protected from light - may have had additional degradation of sample
- Dosing Plan
Dosing by Level: Re-dose today (Vanc 1250mg)
- Monitoring Plan
Random Level: 05/22 0600
- Follow Up
Pharmacy will continue to follow.
Vancomycin Follow UP
- -
Patient Age: 75
Patient Sex: Female
Vancomycin Day #: 2
Indication: Bacteremia
Requesting Provider: Dr. Heredia / Dr. Gill
Pertinent Antimicrobial Allergies:
neomycin/bacitracin/polymyxin [neosporin] - hives
Height / Weight:
Height 5 ft
Actual Weight 90.4 kg
Pertinent Past Medical History: BMI ~38, DM, CKD (baseline SCR 2.2-2.4)
- Vital Signs / Lab Results
Temp Pulse Resp BP Pulse Ox
98.4 F 113 45 94/62 91
05/21/25 03:07 05/21/25 11:56 05/21/25 10:20 05/21/25 04:56 05/21/25 10:20
Lab Results - Hematology
05/20/25 05/21/25
10:37 05:35
WBC 18.8 H 18.6 H
Band Neutrophils 11 H
Lab Results - Chemistry
05/20/25 05/20/25 05/21/25
10:37 11:40 05:35
BUN Cancelled 60 H 53 H
Creatinine Cancelled 2.8 H 1.4 H
Estimated Creat Clear Cancelled 17 33
Albumin Cancelled 3.6 1.6 L D
05/20/25 05/20/25 05/20/25
11:04 14:31 20:00
Lactic Acid 7.5 H* 7.1 H* Cancelled
05/20/25 05/21/25 05/21/25
20:20 02:01 09:51
Lactic Acid 5.9 H* 3.0 H 2.5 H
Microbiology Results
05/20/25 11:03 Blood Culture - Preliminary
Blood/Venous Staphylococcus aureus
Gram Stain - Preliminary
05/20/25 11:03 Blood Culture - Preliminary
Blood/Venous Staphylococcus aureus
Gram Stain - Preliminary
05/20/25 12:36 Blood Parasites Smear - Final
Blood/Venous
05/20/25 11:15 Influenza Types A & B (BARBIE) - Final
Nasal Swab Negative for Influenza A & B, NAAT
Negative results must be combined with clinical observations
and patient history.
Nucleic Acid Amplification test (NAAT)performed on the
[employer] platform.
Therapeutic Drug Monitoring
Random Vancomycin 15.5 ug/ml 05/21/25 05:35
[2025-05-21] MEDS: NOVOLOG FLEXPEN 4 UNITS SC ×2 (13:12→17:29)
[2025-05-21 13:16] LABS: Glucose - Point of Care 228 mg/dl (70-99)
[2025-05-21] MEDS: SODIUM BICARBONATE 1150 MEQ IV ×2 (13:19→20:46)
[2025-05-21] MEDS: VANCOCIN 275 MG IV (13:27)
[2025-05-21] MEDS: PRECEDEX 100 IV ×2 (13:51→20:45)
[2025-05-21 15:58] VITALS: BMI 38.9
[2025-05-21 16:10] LABS: Troponin I 0.636 ng/ml
[2025-05-21] MEDS: MAGNESIUM SULFATE 50 IV (17:09)
[2025-05-21] MEDS: STERILE WATER FOR INJECTION IV (17:10)
[2025-05-21 17:41] LABS: Glucose - Point of Care 240 mg/dl (70-99)
--- NOTE | 2025-05-21 18:48 | PTCARENOTE ---
Patient intubated and sedated.
> Miguel: pupils reactive to light; moves b/l UE and LE. Restraints soft b/l UE to prevent patient remove ETT RASS -3
> Afib 82; BP via Rt A/line: 117/56 MAP 70. [place] correlates with Auto BP via Left Upper Arm. Digoxin per order ; Cardizem drip at 15mcg/15ml Pedal pulses check via doppler . No edema
-Abdomen soft round, Bowel sound present; Dopphoff left Auscultated for placement. No BM this shift. Miralex administered
-Indwelling Aguirre draining dark margaret urine clear; 450cc output/this shift
- Lines: RT Beverley; Rt IJ, Peripheral lines x 2 left
-HOB elevated
--- NOTE | 2025-05-21 19:06 | PTCARENOTE ---
Patient transfer to room 3342 via w/c. AAO x 3; Denies pain; on RA no SOB; NSR 70's; on Clear liquid diet. 5 episodes of bleed while sitting on toilet with no Bowel movements. H/H schedule Q 6 hrs
[2025-05-21] MEDS: TYLENOL ORAL SOLUTION 650 MG TUBE (23:03)
[2025-05-21] MEDS: NOVOLOG FLEXPEN 10 UNITS SC (23:14)
--- NOTE | 2025-05-21 23:17 | PTCARENOTE ---
Bicarb gtt orders changed to 50ml/hr.
Cardizem gtt downtitrated to 5mg see flowsheets for details.
Oral APAP given for low grade fever.
Remains rate controlled, however still in afib. Normotensive via arterial line.
Tolerating vent settings, sedation w. precedex see titration flowsheets for details.
[2025-05-21 23:24] LABS: Glucose - Point of Care 240 mg/dl (70-99)
[2025-05-22] VITALS (12 sets, daily range): BP systolic 117–169; BP diastolic 69–109; BMI 39.2
[2025-05-22] MEDS: CARDIZEM 125 IV (02:01)
[2025-05-22] MEDS: PRECEDEX 100 IV ×2 (02:02→05:10)
--- NOTE | 2025-05-22 03:14 | PTCARENOTE ---
No changes with assessment.
[2025-05-22 03:27] LABS: Hematocrit 39.6 % (37.0-47.0); Hemoglobin 14.0 g/dL (12.0-16.0); Mean Corp Hgb Conc. 35.4 g/dL (33.0-37.0); Mean Corpuscular Volume 95.0 fL (81.0-99.0); Nucleated Red Blood Cells % 1.3 %; Red Cell Dist. Width 15.3 % (11.5-14.5)
[2025-05-22 03:53] LABS: ALT (SGPT) 304 U/L (0-35); AST (SGOT) 387 U/L (14-36); Albumin 2.6 g/dl (3.5-5.0); Alkaline Phosphatase 139 U/L (38-126); Blood Urea Nitrogen 88 mg/dl (7-17); Calcium 8.4 mg/dl (8.4-10.2); Carbon Dioxide 21 mmol/L (22-30); Chloride 100 mmol/L (98-107); Digoxin 3.1 ng/ml (0.8-2.0); Estimated Creatinine Clearance 17 ml/min; Glucose 249 mg/dl (70-99); Potassium 5.0 mmol/L (3.5-5.1); Sodium 129 mmol/L (135-145); Total Protein 5.3 g/dl (6.3-8.2); eGFR 16.87
--- NOTE | 2025-05-22 04:04 | PTCARENOTE ---
Digoxin tox level reported to ICU [id number].
[2025-05-22] MEDS: HEPARIN 5000 UNITS SC ×3 (04:08→20:33)
[2025-05-22 04:11] LABS: Platelet Count 87 10^3/uL (130-400)
[2025-05-22 04:54] LABS: Magnesium 3.0 mg/dl (1.6-2.3)
[2025-05-22] MEDS: TYLENOL ORAL SOLUTION 650 MG TUBE (05:10)
[2025-05-22] MEDS: STERILE WATER FOR INJECTION 10 ML IV ×2 (05:10→17:39)
[2025-05-22] MEDS: MERREM 500 MG IV ×2 (05:10→17:40)
[2025-05-22] MEDS: NOVOLOG FLEXPEN-HIGH RESISTANCE 4 UNITS SC ×2 (05:12→20:31)
[2025-05-22] MEDS: NOVOLOG FLEXPEN 10 UNITS SC ×4 (05:13→23:56)
[2025-05-22 05:23] LABS: Glucose - Point of Care 241 mg/dl (70-99)
--- NOTE | 2025-05-22 07:02 | W.PN.INTV ---
Today's Communication / Plan
Recommendations
Remains off pressors, tolerating mild sedation
SBT efforts continued today
Abx per ID, MRI planning
If fails another day will plan to start TFs
Assessment
-
Patient is a 75-year-old female with complicated past medical cardiac history including aortic stenosis, mitral stenosis, status post Watchman procedure, coronary artery disease status post PCI and congestive heart failure with preserved ejection
fraction who presents to emergency room with progressive weakness over the last few days. She was evaluated in the emergency room couple of days ago for lower abdominal pain and had a CT scan which was unremarkable. Patient's reports that
over the last 24 to 48 hours she has been progressively getting weaker at home and having increasing difficulty getting up. Today he noted fever as well as change in her breathing pattern. He was unable to get her off the couch and called EMS and
patient was brought to the emergency room. She was noted to be quite tachycardic febrile with borderline blood pressure. Patient reportedly vomited twice the day before and reports feeling nauseous. Additional workup was suggestive of elevated
lactate, metabolic acidosis. In view of her rapid ventricular rate, cardiology service evaluated the patient in the emergency room, she was given a dose of digoxin and then started on Cardizem infusion. Patient was subsequently admitted to ICU in
the setting of severe sepsis with metabolic acidosis, elevated lactate and test case developer consult was requested for further input.
Staphylococcus bacteremia
Severe sepsis, ?source
LLL consolidation possible pneumonia
Metabolic acidosis, elevated lactate
EMILY on CKD with hyperkalemia.
SVT/Atrial Fibrillation with RVR
HFrEF, acute on chronic
Abnormal LFTs
TME
Severe pulm HTN, progressed
Other medical diagnoses:
History of aortic stenosis, s/p TAVR in 2018
H/o CAD, s/p LAD PCI which jailed diagonal branch 2015, residual 1st diag stenosis 60-70%, stable by cath 02/2019
Paroxysmal atrial fibrillation/chronic OAC with eliquis
Status post PVI 2011, 2012
S/p Watchman procedure
Pulmonary HTN
CKD
Hypertension
Hyperlipidemia
IDDM
History of breast cancer status postlumpectomy and radiation therapy
Moderate mitral stenosis
Obesity
Right foot surgery
Rectal fissure
Plan
Wean sedation, fent bolus/precedex gtt
Rass goal 0
Wean pressors to off, s/p 1.5 L fluid bolus in ED
SVT/Atrial Fibrillation with RVR history/Status post Watchman procedure, not on anticoagulation at home
Cardiology service consulted
Patient on cardizem infusion and also received Digoxin IV
Heart rate in 160s in the ICU, give Lopressor 2.5 mg IV stat. Currently on Cardizem infusing at 10 mg/h, cardiology service on case
Resume digoxin given amio allergy, check AM levels
HFrEF/X-ray suggestive of developing pulmonary congestion
BNP elevated at 27,000, eventual diuresis will be needed
H/o CAD, s/p PCI (2015)
Pulmonary HTN
- Pulmonary artery systolic pressure of 74 on echo in August 2024. Also reduced RV systolic function with enlarged size.
- Suspect group II pulmonary hypertension in the setting of prior history of severe aortic stenosis s/p TAVR, currently has moderate mitral stenosis as well as heart failure with preserved ejection fraction
- Right heart cath in 2018 had a pulmonary capillary wedge pressure of 30 and mean pulmonary artery pressure of 37.
- No prior history of known pulmonary disease
- Presence of pulmonary hypertension with RV dysfunction puts her at high risk of cardiovascular collapse with intubation and mechanical ventilation
Intubated due to distress/WOB
Vent settings noted, PS wean this AM--failed after 1 hour
Repeat ABG as needed
Repeat CXR showing possible LLL findings
Sputum culture pending
NPO for now
Abnormal LFTs - Suspect acute abnormality in AST ALT in the setting of severe sepsis
PT, INR and PTT--elevated
SA bacteremia, await final on culture
Broad spectrum antibiotics, IV Vancomycin, Meropenem
ID following
F/u on cultures
ID service on case. CXR and U/A not suggestive of infection
History of lower back pain, MRI thorac/lumbar
EMILY on CKD with hyperkalemia.
pH 7.18, elevated lactate at 7.8. Stat sodium bicarbonate push followed by sterile water with Bicarbonate infusion
- Serial lactate, ABG, monitor I/O
- Place moore
- Home dose of Lasix, potassium and Jardiance
IDDM
- Continue insulin as ordered
- Hold Jardiance and repaglinide
SS insulin PRN
Family Discussions
Juan 05/20/2025: I met with patient in the respite room, later at bedside. We went over patient's current condition. He expressed that patient had expressed to him that she would not want to be on life support for a long period of time
and would not want chest compressions or shocks. We discussed various code options including full code DNR, DNI. Patient has been opted to proceed with limited DNR, including okay to intubate if needed for respiratory reason but not to pursue
chest compressions or defibrillation in the setting of cardiac arrest. CODE STATUS updated
Data:
CXR 04/2025: No evidence of pneumonia. Slight prominent bronchovascular markings and mild bronchial wall thickening, which could indicate an element of mild interstitial edema or possibly viral respiratory syndrome.
CT Abd/pelvis 04/2025: No acute pathology of the abdomen or pelvis identified. Tiny fat-containing umbilical hernia. No evidence of incarceration or strangulation. Stable. Gallstones. Enlarged.
Mild diverticulosis. Stable Mild diffuse bladder wall thickening. This can be seen with cystitis or bladder outlet obstruction. Stable Mild free fluid in the pelvis. New. Uncommon in a postmenopausal female. Etiology unknown.
ECHO 05/20/25- Small left ventricle with mild to moderate left ventricular hypertrophy and septal straightening related to RV pressure overload. The ejection fraction is 60%.
2. Mild mitral stenosis with leaflet calcification and dense mitral annular calcification. Mean mitral valve gradient is 5 mmHg. There is mild mitral regurgitation and left atrial dilatation.
3. Transcatheter aortic valve with peak and mean gradients of 9 and 5 mmHg. No aortic regurgitation.
4. Dilated and hypokinetic right ventricle with dilated right atrium, severe tricuspid regurgitation, and severe pulmonary artery systolic pressure, 90 mmHg systolic.
5. In August 2024 there was mild LVH with an ejection fraction of 55 to 60%. Peak and mean mitral valve gradients were 20 and 7.3 mmHg. No mitral regurgitation was seen. The left atrium was normal. Peak and mean aortic valve gradients across the
transcatheter aortic valve were 35 and 18 of mercury. The pulmonary artery systolic pressure was 74 mmHg. The RV was dilated and hypokinetic.
ECHO 08/2024: Normal left ventricular size and systolic function. Mild concentric LVH. No regional wall motion abnormalities are seen. LV ejection fraction is 55-60% by Springer's method of discs. Diastolic function indeterminate due to atrial
fibrillation. Calcified mitral valve leaflets with decreased excursion. Mild to moderate mitral stenosis. Peak/mean gradients across the mitral valve are 19.9 7.3 mmHg respectively. No mitral regurgitation is seen. Normal left atrial size.
Indexed LA volume is within normal range (15-34 mL/m2). TAVR with peak/mean gradients across the aortic valve are 34.6/18 mmHg respectively. No aortic regurgitation is seen. Tricuspid valve opens normally. Moderate tricuspid regurgitation.
Estimated pulmonary artery pressure of 74 mmHg. Assuming a right atrial pressure of 8 mmHg. Enlarged right atrium. Enlarged right ventricular size. Reduced right ventricular systolic function. Since echocardiogram 08/20/2023, there is no
significant change. Mean pressure
gradient across TAVR is increased slightly from 8 mmHg to 18 mmHg.
-----
Critical Care time 35 mins -- The patient is admitted for acute critical illness for the treatment of vital organ failure and/or prevention of further life-threatening conditions. Total care includes time spent in review of history, physical exam,
medications, hemodynamic/ventilator parameters, laboratory data, imaging and discussion with house staff, pharmacy, respiratory therapy, surgery technician, and nursing.
Subjective Dataa
Subjective Data
Date of Service:
Date of Service: May 22, 2025
Chief Complaint: Rn Outpatient Surgery Follow Up
Subjective:
Remains off pressors, still on vent --failed SBT yesterday
Fent and precedex ongoing, calm
Objective Data
Data Reviewed
Vital Signs / I&O / Oxygen:
Vital Signs
Temp Pulse Resp BP Pulse Ox
100 F 83 20 94/62 96
05/22/25 06:00 05/22/25 06:00 05/22/25 06:00 05/21/25 04:56 05/22/25 06:00
Intake and Output
05/21/25 05/22/25 05/23/25
06:59 06:59 06:59
Intake Total 2429.0 / 2458.2 1637.9 / 1637.9
Output Total 1215 / 1240 880 / 880
Balance 1214.0 / 1218.2 757.9 / 757.9
SaO2 [A/C] 95
SaO2 96
Nasal Cannula flow liters per 4
minute
Physical Exam
General: Comfortable and Other (NAD)
HEENT: Normocephalic, Anicteric and Moist Mucous Membranes
Cardiovascular: S1-S2 and Regular Rhythm
Respiratory: Crackles, Non-Labored Respirations and ET Tube
GI: Soft, Non Distended and Non Tender
Neurology: Awake, No Motor Deficits and Lethargic (-3)
Skin: Warm, Dry and Good Color
Labs/Micro/Reports
Lab Data
05/22/25 03:09
05/22/25 03:09
Microbiology
05/20/25 11:03 Blood/Venous Blood Culture - Preliminary
Staphylococcus aureus
05/20/25 11:03 Blood/Venous Gram Stain - Preliminary
05/21/25 10:38 Sputum Gram Stain - Preliminary
05/20/25 11:03 Blood/Venous Blood Culture - Preliminary
Staphylococcus aureus
05/20/25 11:03 Blood/Venous Gram Stain - Preliminary
05/20/25 12:36 Blood/Venous Blood Parasites Smear - Final
05/20/25 11:15 Nasal Swab Influenza Types A & B (BARBIE) - Final
Negative for Influenza A & B, NAAT
Negative results must be combined with clinical observations
and patient history.
Nucleic Acid Amplification test (NAAT)performed on the
[employer] platform.
--- NOTE | 2025-05-22 08:15 | W.PN.CARDCBS ---
Today's Communication / Plan
-
Switch IV diltiazem to diltiazem 60 mg via tube every 8 hours
Continue supportive care
Impression / Plan
-
Primary Certified [employer] Engineer: Dr. Baez
Assessment:
Severe sepsis with shock with multisystem organ failure and Staph aureus bacteremia
Presumed pneumonia
Severe pulmonary hypertension
EMILY on CKD
Hepatic injury related to sepsis
Permanent atrial fibrillation, presently with RVR
s/p PVI 2011, 2012
S/p Watchman implant 06/04/2023 (post watchman ROBERT 07/17/2023 stable)
Suspected acute on chronic HFpEF
Elevated troponin
s/p TAVR 04/2019
Mild mitral stenosis
CAD s/p LAD PCI which jailed diagonal branch 2015, residual 1st diag stenosis 60-70%, stable by cath 02/2019
CKD3B
HTN
HLD
DM2
Obesity
History of hives with amiodarone
H/O GIB w/ anemia
History of ER+ breast cancer s/p L lumpectomy/XRT, on letrozole
Echo 09/19/2024: EF 55 to 60%, mild concentric LVH, mild to moderate MS with peak/mean gradients 20/7 mmHg, TAVR with peak/mean gradients 35/18 mmHg, no AR, moderate TR, PAP 74 mmHg, enlarged RA and RV with reduced RV systolic function
Echo 05/21/2025: Small LV, septal straightening, ejection fraction 60%, mild mitral stenosis with dense MAC, mean mitral valve gradient 5, mild MR, dilated left atrium, transcatheter aortic valve, peak/mean gradient 9 and 5 mmHg. Dilated and
hypokinetic right ventricle, pulmonary artery systolic pressure is 90. Previously pulmonary artery pressure had been 74 mmHg
Plan:
She is hemodynamically improved today in the setting of Staph aureus bacteremia. However, she had extreme pulmonary hypertension at the time of her echo yesterday.
We need to remain mindful of endocarditis, but it presents would not pursue transesophageal echo.
Hopefully to extubate, she failed weaning yesterday.
She is now off pressors, will stop IV diltiazem and convert to diltiazem via the tube with as needed IV bolus.
Unfortunately, bilirubin is now up and creatinine is also up.
Despite markedly elevated proBNP her volume status does not look bad. I would favor attempts at diuresis, but consider renal consultation and would defer to them regarding IV diuretics.
EMILY is probably the result of sepsis. Liver injury likely related to sepsis.
Antibiotics per hospitalist and critical care team.
She looks much better today. Heart rate is now controlled on IV diltiazem. Vasopressin has been stopped, sedation is being weaned. She is now on only a low-dose of phenylephrine with a blood pressure that is acceptable.
Progress Note - Certified [employer] Engineer
Subjective
Date of Service: May 22, 2025:
75-year-old woman admitted with clinical sepsis in the setting of permanent atrial fibrillation, now with hypotension and rapid ventricular response, history of CKD with baseline creatinine 2.7. Seen in the emergency department on 05/18 with lower
abdominal pain, CT scan of abdomen and pelvis was relatively unremarkable, small gallstones, bladder wall thickening
PMH: CKD 3B, history of #26 CoreValve TAVR 2018, permanent atrial fibrillation, Watchman, hypertension, type 2 diabetes, mitral stenosis with peak/mean gradient 20 and 7.25 August 2024, CAD, drug-eluting stent to LAD, jailed diagonal branch, PVI
2011 and 2012, history of GI bleeding, hypertension, type 2 diabetes, left breast cancer with lumpectomy and XRT, hyperlipidemia, severe pulmonary hypertension
Allergies: Amiodarone
Current meds: Letrozole, IV vancomycin, MiraLAX, IV diltiazem, aspirin 81 a day, pantoprazole, subcu heparin, Lantus insulin, meropenem, Precedex, insulin
She failed her wean yesterday, now on Precedex. Off pressors, diltiazem is at 5 mg an hour IV. Feeding tube is in place
94/62, pulse 83, resp rate 20, temp is 38.2, weight is 91 kg up 0.6 kg, weight was 85.7 kg on the , head neck exam unremarkable, diminished breath sounds in bases, irregular rate and rhythm, abdomen benign, 1+ edema
Chest x-ray yesterday mild vascular congestion with probably small infiltrates, possible left lower lobe pneumonia
White count is 13.6, was 18.6, hemoglobin is 14, platelets are 87, had been 128, peak Trope was 0.636, Creatinine up to 2.8, BUN is 88, bicarb is 21, potassium is 5, sodium is 129, AST is 387, ALT is 304, total bilirubin is 2.7, magnesium is 3,
lactic acid level is 1.5, digoxin level is 3.1
Objective
Labs:
05/22/25 03:09
05/22/25 03:09
Labs
Hgb 14.0 g/dL (12.0-16.0) 05/22/25 03:09
Hct 39.6 % (37.0-47.0) 05/22/25 03:09
Plt Count 87 10^3/uL (130-400) L D 05/22/25 03:09
PT 24.5 Sec (11.4-14.6) H 05/20/25 14:31
INR 2.15 05/20/25 14:31
APTT 43.1 Sec (23.4-35.0) H 05/20/25 14:31
Sodium 129 mmol/L (135-145) L 05/22/25 03:09
Potassium 5.0 mmol/L (3.5-5.1) D 05/22/25 03:09
BUN 88 mg/dl (7-17) H 05/22/25 03:09
Creatinine 2.8 mg/dL (0.6-1.0) H 05/22/25 03:09
Glucose 249 mg/dl (70-99) H 05/22/25 03:09
Digoxin 3.1 ng/ml (0.8-2.0) H* 05/22/25 03:09
Troponins
05/20/25 05/20/25 05/21/25
10:37 11:40 05:35
Troponin I Cancelled 0.151 H* 0.617 H*
05/21/25 05/21/25 05/21/25
09:51 11:30 15:30
Troponin I 0.783 H* D Cancelled 0.636 H*
05/21/25 05/21/25
19:30 23:30
Troponin I Cancelled Cancelled
Vital Signs and I&O:
Vital Signs
Temp Pulse Resp BP Pulse Ox
38.2 C H 83 20 94/62 96
05/22/25 07:51 05/22/25 06:00 05/22/25 06:00 05/21/25 04:56 05/22/25 06:00
Vital Signs
Temp Pulse Resp BP Pulse Ox
38.2 C H 83 20 94/62 96
05/22/25 07:51 05/22/25 06:00 05/22/25 06:00 05/21/25 04:56 05/22/25 06:00
Intake & Output
05/20/25 05/21/25 05/22/25 05/23/25
07:59 07:59 07:59 07:59
Intake Total 2458.2 / 2487.4 1608.7 / 1608.7
Output Total 1240 / 1265 855 / 855
Balance 1218.2 / 1222.4 753.7 / 753.7
Physical Exam
Physical Exam
See above
--- NOTE | 2025-05-22 08:38 | PHA.VAN.FU ---
Vancomycin Assessment / Plan
- Assessment
Renal Function: SCR Increasing
In the past 24 hrs, patient has been: Febrile (TMAX 100.7F)
- Assessment - Therapeutic Drug Monitoring
Random Level: 26.6 DRAWN ~26H AFTER PREVIOUS DOSE 1250MG
- Dosing Plan
Dosing by Level: Hold off on dosing today
- Monitoring Plan
Random Level: 05/23 0600
- Follow Up
Pharmacy will continue to follow.
Vancomycin Follow UP
- -
Patient Age: 75
Patient Sex: Female
Vancomycin Day #: 3
Indication: Bacteremia
Requesting Provider: Dr. Heredia / Dr. Gill
Pertinent Antimicrobial Allergies:
neomycin/bacitracin/polymyxin [neosporin] - hives
Height / Weight:
Height 5 ft
Actual Weight 91 kg
Pertinent Past Medical History: BMI ~38, DM, CKD (baseline SCR 2.2-2.4)
- Vital Signs / Lab Results
Temp Pulse Resp BP Pulse Ox
100.7 F H 83 20 94/62 96
05/22/25 07:51 05/22/25 06:00 05/22/25 06:00 05/21/25 04:56 05/22/25 08:25
Lab Results - Hematology
05/20/25 05/21/25 05/22/25
10:37 05:35 03:09
WBC 18.8 H 18.6 H 13.6 H
Band Neutrophils 11 H
Lab Results - Chemistry
05/20/25 05/20/25 05/21/25
10:37 11:40 05:35
BUN Cancelled 60 H 53 H
Creatinine Cancelled 2.8 H 1.4 H
Estimated Creat Clear Cancelled 17 33
Albumin Cancelled 3.6 1.6 L D
05/22/25
03:09
BUN 88 H
Creatinine 2.8 H
Estimated Creat Clear 17
Albumin 2.6 L
05/20/25 05/20/25 05/20/25
11:04 14:31 20:00
Lactic Acid 7.5 H* 7.1 H* Cancelled
05/20/25 05/21/25 05/21/25
20:20 02:01 09:51
Lactic Acid 5.9 H* 3.0 H 2.5 H
05/22/25
03:09
Lactic Acid 1.5
Microbiology Results
05/20/25 11:03 Blood Culture - Preliminary
Blood/Venous Staphylococcus aureus
Gram Stain - Preliminary
05/21/25 10:38 Gram Stain - Preliminary
Sputum
05/20/25 11:03 Blood Culture - Preliminary
Blood/Venous Staphylococcus aureus
Gram Stain - Preliminary
05/20/25 12:36 Blood Parasites Smear - Final
Blood/Venous
05/20/25 11:15 Influenza Types A & B (BARBIE) - Final
Nasal Swab Negative for Influenza A & B, NAAT
Negative results must be combined with clinical observations
and patient history.
Nucleic Acid Amplification test (NAAT)performed on the
[employer] platform.
Therapeutic Drug Monitoring
Random Vancomycin 26.6 ug/ml 05/22/25 03:09
--- NOTE | 2025-05-22 08:44 | W.PN.ID1 ---
Date of Service
Date of Service: May 22, 2025
Today's Communication
Continue antibiotics.
Assessment / Plan
S. aureus sepsis / bacteremia
Fever
Lactic acidosis; improved
Leukocytosis; improved
Thrombocytopenia
EMILY on CKD
Exac CHF
Elevated AST and ALT
A-fib
CAD
Hx left breast CA
HTN
HLD
DM type II (uncontrolled; HbA1c = 9.9)
Valvular disease (AAS, MR)
Vertigo
Diverticulitis
Recommendations:
Creatinine remains elevated (2.8; Est.CrCl 17)
Continue with empiric vancomycin. Follow levels closely to prevent nephrotoxicity.
Continue meropenem 500 mg q.12 IV. (Dosed for renal insufficiency)
Follow creatinine and Est. CrCl closely for further dosing adjustment.
Blood cultures now with Staph aureus. Repeat blood cultures in process. Await final susceptibility data to guide further antimicrobial selection/de-escalation.
No significant findings in the low back on recent CT scan. Would consider MRI when patient is more stable.
Lactic acidosis improved/resolved.
Follow white count and temperature curve.
Patient remains critically ill in intensive care unit on vent.
����������������������������������������������������������
Chief Complaint
-: Leukocytosis and Clinical Sepsis
Subjective / Review of Systems
Patient seen and examined. Remains on vent this a.m., but off pressors since yesterday.
Review of Systems: Fever
Vital Signs / Physical Exam
Vital Signs
Vital Signs
Temp Pulse Resp BP Pulse Ox
100.7 F H 83 20 94/62 96
05/22/25 07:51 05/22/25 06:00 05/22/25 06:00 05/21/25 04:56 05/22/25 08:25
Physical Exam
Constitutional: Acutely Ill, Toxic and Obese
Head: Other (ET tube in place)
Eyes: No Conjunctival Hemorrhage and Sclera Anicteric
Cardiovascular: Irregular Rate (Tachycardic), S1/S2 and Murmur (II/); Negative S3/S4
Pulmonary: Coarse and Other (On vent); Negative Wheezes
Gastrointestinal: Soft and Non Tender
Genito-Urinary: Aguirre
Extremities: Negative Edema, Cyanosis or Splinter Hemorrhage
Skin: Warm and Dry
Neurological: Other (Sedated)
Objective Data
Lab Data
Lab Results
05/22/25 03:09
05/22/25 03:09
PT 24.5 Sec (11.4-14.6) H 05/20/25 14:31
INR 2.15 05/20/25 14:31
APTT 43.1 Sec (23.4-35.0) H 05/20/25 14:31
Estimated Creat Clear 17 ml/min 05/22/25 03:09
Lactic Acid 1.5 mmol/L (0.7-2.0) 05/22/25 03:09
Total Bilirubin 2.7 mg/dl (0.2-1.3) H 05/22/25 03:09
AST 387 U/L (14-36) H 05/22/25 03:09
ALT 304 U/L (0-35) H 05/22/25 03:09
Alkaline Phosphatase 139 U/L (38-126) H 05/22/25 03:09
Most recent labs reviewed.
Micro Results:
05/20/25 11:03 Blood Culture - Preliminary
Blood/Venous Staphylococcus aureus
Gram Stain - Preliminary
05/21/25 15:30 Blood Culture - Pending
Blood/Venous
05/21/25 10:38 Respiratory Culture - Pending
Sputum Gram Stain - Preliminary
05/20/25 11:03 Blood Culture - Preliminary
Blood/Venous Staphylococcus aureus
Gram Stain - Preliminary
05/20/25 12:36 Blood Parasites Smear - Final
Blood/Venous
05/20/25 11:15 Influenza Types A & B (BARBIE) - Final
Nasal Swab Negative for Influenza A & B, NAAT
Negative results must be combined with clinical observations
and patient history.
Nucleic Acid Amplification test (NAAT)performed on the
[employer] platform.
Imaging:
05/18/2025 CT abdomen/pelvis without contrast: no acute pathology of the abdomen or pelvis identified. Tiny fat-containing umbilical hernia. Unenhanced liver, spleen and pancreas are unremarkable. Few small gallstones noted in the gallbladder. No
significant lymphadenopathy. Mild diverticulosis noted.
--- NOTE | 2025-05-22 08:52 | PTCARENOTE ---
0700 assumed care. patient in bed intubated and Sedated.
> RASS -5 ( No response to voice and physical stimulation) Precedex 0.6. ---- Precedex infusion on Stopped. Pupils +3 sluggish equal. Strong gag reflex Restraints b/l UE soft
-Afib 83 Pedal pulses present to Doppler. Cardizem at 5/5ml. BP via left Radial A/line: 132/54; No edema
-Abdomen round soft. Hypoactive Bowel sounds x 4 Quadrants
-Aguirre catheter draining clear dark margaret urine
-skin stewart discoloration to face
-lines: RT IJ: Cardizem; Bicarb at 50/hr; left peripheral lines
HOB elevated
[2025-05-22] MEDS: LANTUS 0.16 UNITS SC (09:09)
[2025-05-22] MEDS: LOW STRENGTH ASPIRIN 81 MG TUBE (09:10)
[2025-05-22] MEDS: MIRALAX 17 GRAMS TUBE (09:10)
[2025-05-22] MEDS: PROTONIX IV 40 MG IV (09:10)
[2025-05-22] MEDS: NSS (PRESERVATIVE FREE) 10 ML IV (09:11)
[2025-05-22] MEDS: SODIUM BICARBONATE 1150 MEQ IV (09:25)
--- NOTE | 2025-05-22 11:12 | W.PN.HOSP.TC ---
Addendum entered and electronically signed by Moses Downing MD 05/23/25 13:42:
Septic shock, unclear source however with MSSA bacteremia
Continue IV antibiotics per ID, to determine duration of antibiotics for once negative cultures have been obtained
Spine MRI is ordered
Wean pressor support as tolerated
Maintain MAP greater than 65
Acute hypoxemic respiratory failure required mechanical ventilation
Daily SAT SBT
-Was off of sedatives, not awaking. Check MRI brain
Hyponatremia
Improving
Continue tube feeds
Metabolic acidosis
Improved with bicarb drip
EMILY on CKD stage IIIb
Monitor urinary output
Check urine analysis along with urine electrolytes
Avoid nephrotoxic agents and hypotension
If not improving will need to consult nephrology
Atrial fibrillation with RVR
Cardiology transition from IV Cardizem to oral Cardizem
S/p watchman
Original Note:
Today's Communication/Plan
-
Continue IV abx, continue bicarb
Assessment / Plan
Assessment / Plan
Assessment:
75-year-old female with a past medical history of paroxysmal A-fib post Watchman procedure, aortic stenosis, mitral stenosis, coronary artery disease post PCI and congestive heart failure with preserved ejection fraction presented to the emergency
room due to progressive weakness over the past few days. She had been in the emergency room here few days ago and was evaluated for lower abdominal pain. CT scan at that time was unremarkable and patient was discharged home. As per the patient's
, patient had been increasingly getting weaker at home and even had trouble getting up. He noticed fever as well as some difficulty breathing alongside vomiting and nausea. Decided to call EMS to go back to the hospital. In the ED she was
found to have elevated lactate, and metabolic acidosis with anion gap. She also had rapid ventricular rate and was given a dose of digoxin and started on Cardizem infusion. Due to the severe sepsis, septic shock, patient was admitted to the ICU.
While in the ICU, she had persistent tachycardia and low respiratory rate. Because of the increased work of breathing, tachypnea, lethargy and restlessness, patient was intubated.
Plan:
#Septic Shock from unknown source
- 1.5 ltr fluid bolus in ED, given pulmonary congestion. Lactate normalized
- Febrile today despite current ABx. Continue IV Vancomycin, Meropenem.
- Off pressors but remains sedated, failed extubation yesterday. For MRI brain and spine
- Bcx grew Staph aureus. source unclear - pneumonia vs other source. Adjust abx based on susceptibility, repeat Cx pending
- Appreciate ID recs
#Acute hypoxic respiratory failure secondary to septic shock
- Requiring ventilator support, failed extubation attempt today
- Settings: 450TV, Rate 20, PEEP 5, FiO2 40%
- Wean and extubate as possible
# Metabolic acidosis, elevated lactate
- Suspected related to underlying severe sepsis
- Lactate normalized. Ongoing bicarb infusion, metabolic acidosis slowly improving
- Serial lactate, ABGs
# EMILY on CKD
- Ongoing, In the setting of severe sepsis
- Creatinine 2.8 on admission -> 1.4 -> 2.8
- Sodium bicarbonate infusion as above, serial labs, monitor I/O
#Suspect acute HFpEF exacerbation:
- Vs sepsis
- ProBNP 27,000 on admission
- Holding diuretics for now while critically ill
# SVT/Atrial Fibrillation with RVR
- Likely exacerbated by sepsis
- Received Digoxin once, currently ongoing cardizem drip. now in rate controlled Afib
- Status post Watchman procedure, not on anticoagulation at home
- Appreciate cards
#Non-ischemic cardiomyopathy
- 2/2 septic shock
- Troponin peaked at 0.783
# HFrEF
- X-ray suggestive of developing pulmonary congestion
- S/p 1.5 L in the emergency room
- Starting sterile water with sodium bicarbonate in view of metabolic acidosis and pH below 7.2
- Careful of initiating further fluid therapy
- BNP elevated at 27,000
Electrolyte abnormality:
Hypokalemia, hypocalcemia, hyperkalemia
- Monitor and replete as necessary
#Thrombocytopenia:
2/2 to septic shock or medication adverse effect (on Meropenem)
- Monitor
# IDDM
- Continue insulin as ordered (Glargine 16 units, Sliding Scale High resist)
- Hold Jardiance and repaglinide
# Transaminitis
- 2/2 septic shock
# H/o CAD, s/p PCI (2016)
- Stable. Elevated troponin from non-ischemic myocardial injury 2/2 septic shock
- Continue
# History of breast cancer status post lumpectomy and radiation therapy
- Takes Letrozole (Femara) at home, holding in setting of severe sepsis
DVT Prophylaxis: Heparin
Code: limited DNR, including okay to intubate if needed for respiratory reason but not to pursue chest compressions or defibrillation in the setting of cardiac arrest
Anticipated Discharge: > 48 hours
Subjective/Interval History
-
Date of Service: May 22, 2025
Febrile
Objective Data
-
Labs:
Laboratory Results
05/22/25
03:09
WBC 13.6 H
Hgb 14.0
Hct 39.6
Plt Count 87 L D
Sodium 129 L
Potassium 5.0 D
Chloride 100
Carbon Dioxide 21 L
BUN 88 H
Creatinine 2.8 H
Glucose 249 H
Calcium 8.4 D
Total Bilirubin 2.7 H
AST 387 H
ALT 304 H
Alkaline Phosphatase 139 H
Vital Signs:
Vital Signs
Temp Pulse Resp BP Pulse Ox
100.9 F H 83 20 94/62 96
05/22/25 11:11 05/22/25 06:00 05/22/25 06:00 05/21/25 04:56 05/22/25 08:25
I&O
05/21/25 05/22/25 08
06:59 06:59 06:59
Intake Total 2429.0 / 2458.2 1637.9 / 1692.9 110 / 110
Output Total 1215 / 1240 880 / 955 150 / 150
Balance 1214.0 / 1218.2 757.9 / 737.9 -40 / -40
Review of Systems
-
Unable to obtain full review of systems at this time due to: Acuity and Patient Intubation
Physical Exam
-
General: Intubated and Other (sedated)
HEENT: Normocephalic and Atraumatic
Respiratory: Clear to Auscultation (anteriorly)
Cardiac: S1/S2 and Irregular Rhythm; Negative Murmur or Rub
GI: Soft, Nondistended and No Hepatosplenomegaly
Skin: Warm and Dry
Neuro: Other (sedated)
[2025-05-22 11:40] LABS: Glucose - Point of Care 268 mg/dl (70-99)
[2025-05-22] MEDS: NOVOLOG FLEXPEN-HIGH RESISTANCE 7 UNITS SC (15:02)
[2025-05-22 17:35] LABS: Glucose - Point of Care 223 mg/dl (70-99)
[2025-05-22] MEDS: CARDIZEM 60 MG TUBE ×2 (17:39→23:52)
[2025-05-22 20:42] LABS: Glucose - Point of Care 223 mg/dl (70-99)
--- NOTE | 2025-05-22 21:11 | PTCARENOTE ---
Assumed care of pt. approx 1900.
Remains off all sedation, is arousable to tactile stimulation, however does not have purposeful movements appreciated. Pupils =/R 2mm. Pain w/d in all extrem, all protective reflexes intact.
Arterial line unable to transduce or flush despite trouble shooting --> ICU JAGRUTI notified orders to D/C.
Multiple bouts of loose stools, ICU JAGRUTI notified holding miralax at this time.
Decreased urine OP --> ICU JAGRUTI notified cont. to follow at this time.
[2025-05-22] MEDS: CARDIZEM 10 MG IV (21:29)
[2025-05-22] MEDS: NSS 250 IV (21:30)
[2025-05-22] MEDS: NOVOLOG FLEXPEN-HIGH RESISTANCE 2 UNITS SC (23:56)
[2025-05-23] VITALS (18 sets, daily range): BP systolic 120–154; BP diastolic 64–122; BMI 39.3
[2025-05-23 00:07] LABS: Glucose - Point of Care 196 mg/dl (70-99)
--- NOTE | 2025-05-23 00:11 | PTCARENOTE ---
Urine OP remains low, ICU jaqueline notified --> 250 bolus given --> urine op remains low --> Notified provider again, continue to follow.
pt. now hypertensive off NIBP --> Provider notified no new orders.
HR elevated 110-150, PRN cardizem given --> ICU JAQUELINE aware, no new orders.
--- NOTE | 2025-05-23 03:13 | PTCARENOTE ---
Urine OP remains poor, HR in 120-140s --> PRNs given, icu jaqueline notified no new orders.
[2025-05-23] MEDS: CARDIZEM 10 MG IV ×2 (03:15→09:15)
[2025-05-23] MEDS: HEPARIN 5000 UNITS SC ×3 (03:16→19:16)
[2025-05-23 03:18] LABS: Hematocrit 40.1 % (37.0-47.0); Hemoglobin 13.9 g/dL (12.0-16.0); Mean Corp Hgb Conc. 34.7 g/dL (33.0-37.0); Mean Corpuscular Volume 96.9 fL (81.0-99.0); Platelet Count 83 10^3/uL (130-400); Red Cell Dist. Width 14.9 % (11.5-14.5)
[2025-05-23 03:48] LABS: ALT (SGPT) 356 U/L (0-35); AST (SGOT) 462 U/L (14-36); Albumin 2.7 g/dl (3.5-5.0); Alkaline Phosphatase 137 U/L (38-126); Blood Urea Nitrogen 107 mg/dl (7-17); Calcium 7.9 mg/dl (8.4-10.2); Carbon Dioxide 25 mmol/L (22-30); Chloride 98 mmol/L (98-107); Estimated Creatinine Clearance 13 ml/min; Glucose 178 mg/dl (70-99); Potassium 4.5 mmol/L (3.5-5.1); Sodium 131 mmol/L (135-145); Total Protein 5.4 g/dl (6.3-8.2); Triglycerides 311 mg/dl (10-149); eGFR 12.48
[2025-05-23 04:08] LABS: Cortisol, Random 51.4 ug/dl
[2025-05-23] MEDS: NOVOLOG FLEXPEN-HIGH RESISTANCE 2 UNITS SC ×2 (06:05→12:05)
[2025-05-23] MEDS: MERREM 500 MG IV (06:07)
[2025-05-23] MEDS: NOVOLOG FLEXPEN 10 UNITS SC ×2 (06:07→12:05)
[2025-05-23] MEDS: STERILE WATER FOR INJECTION 10 ML IV (06:08)
[2025-05-23 06:16] LABS: Glucose - Point of Care 162 mg/dl (70-99)
[2025-05-23] MEDS: MIRALAX TUBE (06:51)
[2025-05-23] MEDS: CARDIZEM 90 MG TUBE (07:15)
--- NOTE | 2025-05-23 07:15 | W.PN.INTV ---
Today's Communication / Plan
Recommendations
MRI noted, sputum w/ MSSA as well, remains on IV abx per ID
SBT trials continue, off sedation > 24 hours
Stop IVFs, creat worsening-renal consult
BNP elevated at 27,000, eventual diuresis will be needed--this is likely impeding extubation attempts
Assessment
-
Patient is a 75-year-old female with complicated past medical cardiac history including aortic stenosis, mitral stenosis, status post Watchman procedure, coronary artery disease status post PCI and congestive heart failure with preserved ejection
fraction who presents to emergency room with progressive weakness over the last few days. She was evaluated in the emergency room couple of days ago for lower abdominal pain and had a CT scan which was unremarkable. Patient's reports that
over the last 24 to 48 hours she has been progressively getting weaker at home and having increasing difficulty getting up. Today he noted fever as well as change in her breathing pattern. He was unable to get her off the couch and called EMS and
patient was brought to the emergency room. She was noted to be quite tachycardic febrile with borderline blood pressure. Patient reportedly vomited twice the day before and reports feeling nauseous. Additional workup was suggestive of elevated
lactate, metabolic acidosis. In view of her rapid ventricular rate, cardiology service evaluated the patient in the emergency room, she was given a dose of digoxin and then started on Cardizem infusion. Patient was subsequently admitted to ICU in
the setting of severe sepsis with metabolic acidosis, elevated lactate and spring setter consult was requested for further input.
MSSA bacteremia
Severe sepsis
MRI w/ possible early discitis/osteomyelitis
LLL consolidation possible pneumonia, sputum + MSSA
Metabolic acidosis, elevated lactate
EMILY on CKD with hyperkalemia.
SVT/Atrial Fibrillation with RVR
HFrEF, acute on chronic
Abnormal LFTs
TME
Severe pulm HTN, progressed
Other medical diagnoses:
History of aortic stenosis, s/p TAVR in 2019
H/o CAD, s/p LAD PCI which jailed diagonal branch 2015, residual 1st diag stenosis 60-70%, stable by cath 02/2019
Paroxysmal atrial fibrillation/chronic OAC with eliquis
Status post PVI 2011, 2012
S/p Watchman procedure
Pulmonary HTN
CKD
Hypertension
Hyperlipidemia
IDDM
History of breast cancer status postlumpectomy and radiation therapy
Moderate mitral stenosis
Obesity
Right foot surgery
Rectal fissure
Plan
Wean sedation, fent bolus/precedex gtt--wean off sedation x 24 hours now
Sedation holiday
Rass goal 0
Weaned pressors to off, s/p 1.5 L fluid bolus in ED
SVT/Atrial Fibrillation with RVR history/Status post Watchman procedure, not on anticoagulation at home
Cardiology service consulted
Patient on cardizem infusion and also received Digoxin IV
Heart rate in 160s in the ICU, give Lopressor 2.5 mg IV stat. Currently on Cardizem PO, cardiology service on case
HFrEF/X-ray suggestive of developing pulmonary congestion--BNP elevated at 27,000, eventual diuresis will be needed
H/o CAD, s/p PCI (2015)
Pulmonary HTN- Pulmonary artery systolic pressure of 74 on echo in August 2024. Also reduced RV systolic function with enlarged size.
Suspect group II pulmonary hypertension in the setting of severe aortic stenosis s/p TAVR/moderate mitral stenosis/HFpEF
Right heart cath in 2018 had a pulmonary capillary wedge pressure of 30 and mean pulmonary artery pressure of 37.
Intubated due to distress/WOB
No prior history of known pulmonary disease
Vent settings noted, PS wean attempts, failed
Repeat ABG as needed
Repeat CXR showing possible LLL findings
Sputum culture +MSSA
Continue SBT attempts
NPO for now
Abnormal LFTs - Suspect acute abnormality in AST ALT in the setting of severe sepsis
PT, INR and PTT--elevated
SA bacteremia, MSSA
Broad spectrum antibiotics, IV Vancomycin, Meropenem
ID following
History of lower back pain, MRI thorac/lumbar w/ likely early discitis/osteomyelitis
EMILY on CKD with hyperkalemia.
pH 7.18, elevated lactate at 7.8. met acid s/p bicarb IVFs
Stop IVFs today
Creat worsening, agree with nephro consult
Monitor I/O, moore
IDDM
- Continue insulin as ordered
- Hold Jardiance and repaglinide
SS insulin PRN
Family Discussions
Juan 05/20/2025: I met with patient in the respite room, later at bedside. We went over patient's current condition. He expressed that patient had expressed to him that she would not want to be on life support for a long period of time
and would not want chest compressions or shocks. We discussed various code options including full code DNR, DNI. Patient has been opted to proceed with limited DNR, including okay to intubate if needed for respiratory reason but not to pursue
chest compressions or defibrillation in the setting of cardiac arrest. CODE STATUS updated
Data:
CXR 04/2025: No evidence of pneumonia. Slight prominent bronchovascular markings and mild bronchial wall thickening, which could indicate an element of mild interstitial edema or possibly viral respiratory syndrome.
CT Abd/pelvis 04/2025: No acute pathology of the abdomen or pelvis identified. Tiny fat-containing umbilical hernia. No evidence of incarceration or strangulation. Stable. Gallstones. Enlarged.
Mild diverticulosis. Stable Mild diffuse bladder wall thickening. This can be seen with cystitis or bladder outlet obstruction. Stable Mild free fluid in the pelvis. New. Uncommon in a postmenopausal female. Etiology unknown.
ECHO 05/20/25- Small left ventricle with mild to moderate left ventricular hypertrophy and septal straightening related to RV pressure overload. The ejection fraction is 60%.
2. Mild mitral stenosis with leaflet calcification and dense mitral annular calcification. Mean mitral valve gradient is 5 mmHg. There is mild mitral regurgitation and left atrial dilatation.
3. Transcatheter aortic valve with peak and mean gradients of 9 and 5 mmHg. No aortic regurgitation.
4. Dilated and hypokinetic right ventricle with dilated right atrium, severe tricuspid regurgitation, and severe pulmonary artery systolic pressure, 90 mmHg systolic.
5. In August 2024 there was mild LVH with an ejection fraction of 55 to 60%. Peak and mean mitral valve gradients were 20 and 7.3 mmHg. No mitral regurgitation was seen. The left atrium was normal. Peak and mean aortic valve gradients across the
transcatheter aortic valve were 35 and 18 of mercury. The pulmonary artery systolic pressure was 74 mmHg. The RV was dilated and hypokinetic.
ECHO 08/2024: Normal left ventricular size and systolic function. Mild concentric LVH. No regional wall motion abnormalities are seen. LV ejection fraction is 55-60% by Springer's method of discs. Diastolic function indeterminate due to atrial
fibrillation. Calcified mitral valve leaflets with decreased excursion. Mild to moderate mitral stenosis. Peak/mean gradients across the mitral valve are 19.9 7.3 mmHg respectively. No mitral regurgitation is seen. Normal left atrial size.
Indexed LA volume is within normal range (15-34 mL/m2). TAVR with peak/mean gradients across the aortic valve are 34.6/18 mmHg respectively. No aortic regurgitation is seen. Tricuspid valve opens normally. Moderate tricuspid regurgitation.
Estimated pulmonary artery pressure of 74 mmHg. Assuming a right atrial pressure of 8 mmHg. Enlarged right atrium. Enlarged right ventricular size. Reduced right ventricular systolic function. Since echocardiogram 08/20/2023, there is no
significant change. Mean pressure
gradient across TAVR is increased slightly from 8 mmHg to 18 mmHg.
-----
Critical Care time 32 mins -- The patient is admitted for acute critical illness for the treatment of vital organ failure and/or prevention of further life-threatening conditions. Total care includes time spent in review of history, physical exam,
medications, hemodynamic/ventilator parameters, laboratory data, imaging and discussion with house staff, pharmacy, respiratory therapy, toy maker, and nursing.
Subjective Dataa
Subjective Data
Date of Service:
Date of Service: May 23, 2025
Chief Complaint: Greens Picker Follow Up
Subjective:
off sedation > 24 hours
remains on vent
Objective Data
Data Reviewed
Vital Signs / I&O / Oxygen:
Vital Signs
Temp Pulse Resp BP Pulse Ox
99.5 F 162 21 150/122 93
05/23/25 06:00 05/23/25 06:00 05/23/25 06:00 05/23/25 06:00 05/23/25 06:00
Intake and Output
05/22/25 05/23/25 05/24/25
06:59 06:59 06:59
Intake Total 1637.9 / 1692.9 1410 / 1410
Output Total 880 / 955 600 / 600
Balance 757.9 / 737.9 810 / 810
SaO2 [A/C] 94
SaO2 93
Nasal Cannula flow liters per 4
minute
Physical Exam
General: Comfortable and Other (NAD)
HEENT: Normocephalic, Anicteric and Moist Mucous Membranes
Cardiovascular: S1-S2 and Regular Rhythm
Respiratory: Crackles, Non-Labored Respirations and ET Tube
GI: Soft, Non Distended and Non Tender
Neurology: Awake, No Motor Deficits and Lethargic (-3)
Skin: Warm, Dry and Good Color
Labs/Micro/Reports
Lab Data
05/23/25 03:05
05/23/25 03:05
Microbiology
05/21/25 10:38 Sputum Respiratory Culture - Preliminary
Staphylococcus aureus
05/21/25 10:38 Sputum Gram Stain - Preliminary
05/21/25 15:30 Blood/Venous Blood Culture - Preliminary
No Growth in 24 hours- Final report to follow
05/20/25 11:03 Blood/Venous Blood Culture - Final
S aureus-Methicillin Sensitive
05/20/25 11:03 Blood/Venous Gram Stain - Final
05/20/25 11:03 Blood/Venous Blood Culture - Final
S aureus-Methicillin Sensitive
05/20/25 11:03 Blood/Venous Gram Stain - Final
05/20/25 12:36 Blood/Venous Blood Parasites Smear - Final
05/20/25 11:15 Nasal Swab Influenza Types A & B (BARBIE) - Final
Negative for Influenza A & B, NAAT
Negative results must be combined with clinical observations
and patient history.
Nucleic Acid Amplification test (NAAT)performed on the
[employer] platform.
[2025-05-23] MEDS: LOW STRENGTH ASPIRIN 81 MG TUBE (07:23)
[2025-05-23] MEDS: NSS (PRESERVATIVE FREE) 10 ML IV (07:23)
[2025-05-23] MEDS: PROTONIX IV 40 MG IV (07:24)
[2025-05-23] MEDS: LANTUS 0.16 UNITS SC (07:25)
--- NOTE | 2025-05-23 07:48 | PTCARENOTE ---
0700 Assumed care. Patient intubated. OFF sedation. Bicarb infusing via RT IJ at 50/HR Soft wrist Restraints b/l
RASS -5 Attempts to open her eyes to painful stimuli. spontaneously moves b/l LE. Pupils equal reactive to light, sclera edema. Soft Restraints to b/l UE . Gag refelex present
Afib 146-165 Cardizem 90mg via Dophoff adm. no edema pedal pulses present
ETT # 7/Center 21cm; AC 450/20/+5/40% PEAK 28/own RR 20; SPONT at 08:00 5/5/40%
Abdomen soft round Bowel sounds normal; Diarrhea over night. Miralex held
Indwelling Aguirre draining sediment dark margaret urine 30/hr
Bicarb D/C Carbon Dioxide 25
--- NOTE | 2025-05-23 07:49 | W.PN.ID1 ---
Date of Service
Date of Service: May 23, 2025
Today's Communication
Narrow to cefazolin.
Assessment / Plan
S. aureus sepsis / bacteremia
Fever
Lactic acidosis; improved
Leukocytosis; improved
Thrombocytopenia
EMILY on CKD
Exac CHF
Elevated AST and ALT
A-fib
CAD
Hx left breast CA
HTN
HLD
DM type II (uncontrolled; HbA1c = 9.9)
Valvular disease (AAS, MR)
Vertigo
Diverticulitis
Recommendations:
Creatinine continues to rise. (3.6; Est.CrCl 13)
Blood cultures with Staph aureus (MSSA).
Discontinue further vancomycin and meropenem.
Transition to cefazolin 1 gm IV q.8 hours (dosed for renal insufficiency.)
Continue to monitor creatinine and creatinine clearance.
Repeat blood cultures from 05/21 no growth x 24 hours. Will repeat that today.
Lactic acidosis improved/resolved.
Follow white count and temperature curve.
Patient remains critically ill in intensive care unit on vent.
����������������������������������������������������������
Chief Complaint
-: Leukocytosis, Clinical Sepsis and Bacteremia
Subjective / Review of Systems
Patient seen and examined. Remains on vent at this time.
Vital Signs / Physical Exam
Vital Signs
Vital Signs
Temp Pulse Resp BP Pulse Ox
99.4 F 148 21 143/77 92
05/23/25 07:36 05/23/25 07:15 05/23/25 06:00 05/23/25 07:15 05/23/25 07:40
Physical Exam
Constitutional: Acutely Ill, Toxic and Obese
Head: Other (ET tube in place)
Eyes: No Conjunctival Hemorrhage and Sclera Anicteric
Cardiovascular: Irregular Rate (Tachycardic), S1/S2 and Murmur (II/); Negative S3/S4
Pulmonary: Coarse and Other (On vent); Negative Wheezes
Gastrointestinal: Soft and Non Tender
Genito-Urinary: Aguirre
Extremities: Negative Edema, Cyanosis, Splinter Hemorrhage or Janeway Lesions
Skin: Warm and Dry
Neurological: Other (Sedated)
Objective Data
Lab Data
Lab Results
05/23/25 03:05
05/23/25 03:05
PT 24.5 Sec (11.4-14.6) H 05/20/25 14:31
INR 2.15 05/20/25 14:31
APTT 43.1 Sec (23.4-35.0) H 05/20/25 14:31
Estimated Creat Clear 13 ml/min 05/23/25 03:05
Lactic Acid 1.5 mmol/L (0.7-2.0) 05/22/25 03:09
Total Bilirubin 2.9 mg/dl (0.2-1.3) H 05/23/25 03:05
AST 462 U/L (14-36) H 05/23/25 03:05
ALT 356 U/L (0-35) H 05/23/25 03:05
Alkaline Phosphatase 137 U/L (38-126) H 05/23/25 03:05
Most recent labs reviewed.
Micro Results:
05/21/25 10:38 Respiratory Culture - Preliminary
Sputum Staphylococcus aureus
Gram Stain - Preliminary
05/21/25 15:30 Blood Culture - Preliminary
Blood/Venous No Growth in 24 hours- Final report to follow
05/20/25 11:03 Blood Culture - Final
Blood/Venous S aureus-Methicillin Sensitive
Gram Stain - Final
05/20/25 11:03 Blood Culture - Final
Blood/Venous S aureus-Methicillin Sensitive
Gram Stain - Final
05/20/25 12:36 Blood Parasites Smear - Final
Blood/Venous
05/20/25 11:15 Influenza Types A & B (BARBIE) - Final
Nasal Swab Negative for Influenza A & B, NAAT
Negative results must be combined with clinical observations
and patient history.
Nucleic Acid Amplification test (NAAT)performed on the
[employer] platform.
Imaging:
05/22/2025 MRI C-spine, T-spine: no evidence of discitis/osteomyelitis in the cervical spine. Multilevel degenerative changes at C4-C5 with mild/moderate canal stenosis. Hyperintense signal enhancement along the superior endplate of L1 which
extends into the intravertebral disc which may represent early discitis/osteomyelitis. Please see full dictation for additional detail.
05/18/2025 CT abdomen/pelvis without contrast: no acute pathology of the abdomen or pelvis identified. Tiny fat-containing umbilical hernia. Unenhanced liver, spleen and pancreas are unremarkable. Few small gallstones noted in the gallbladder. No
significant lymphadenopathy. Mild diverticulosis noted.
--- NOTE | 2025-05-23 08:26 | W.CON.NEPH ---
Consultation
-
Date/Time Consultation Requested: 05/23/2025 800 AM
Date/Time Consultation Performed: 05/23/2025 825 AM
Requesting Provider: Dr. Downing
Performing Provider: Dr. Mcnamara
Reason for Consultation: Acute kidney injury
Medical History
-
Chief Complaint: Acute kidney injury
History of Present Illness:
The patient is a 75 yo woman with hx atrial fibrillation s/p Watchman device (), s/p ablation; s/p TAVR 04/2019, CAD s/p PCI (2015), essential HTN (on diltiazem/metoprolol)< HLD, DM2 (on insulin), obesity, HFpEF, CKD IIIb (2.4)presents to
the ER with weakness. When she arrived to the emergency room she was tachycardic and febrile and hemodynamically labile. She was noted to have elevated lactate metabolic acidosis and over the course of her admission to the intensive care unit has
developed acute renal failure with creatinine up to 3.7 and BUN in excess of 100 and nephrology was consulted. Over the course of her admission she has been found to have severe sepsis with MSSA bacteremia. The source of her infection has not been
readily identified yet. Unfortunately she developed acute hypoxic respiratory failure and is now intubated/
Past Medical History
Paroxysmal atrial fibrillation
Status post PVI 2011, 2012
chronic OAC with eliquis
Status post TAVR 04/2019
CAD status post LAD PCI which jailed diagonal branch 2015, residual 1st diag stenosis 60-70%, stable by cath 02/2019
CKD 4 (2.5)
HTN
HLD
DM2
Obesity
History of hives with amiodarone
Anemia
Nonischemic cardiomyopathy
History of breast cancer status post lumpectomy and radiation therapy
Social History
Tobacco: Non-Smoker
Alcohol: None
Drug: None
Family History
Family History: Not Pertinent
Allergies / Home Medications
Allergy/AdvReac Type Severity Reaction Status Date / Time
adhesive (Adhesive) Allergy Rash Verified 05/17/25 23:01
amiodarone Allergy Hives Verified 05/17/25 23:01
bacitracin (From Neosporin Allergy Hives Verified 05/17/25 23:01
([id number]))
bacitracin zinc (From Allergy Hives Verified 05/17/25 23:01
Neosporin ([id number]-lzx-[id number]))
Influenza Virus Vaccines Allergy Rash,SEVERE Verified 05/17/25 23:01
(Influenza Virus Vaccine) SHAKING
neomycin sulfate (From Allergy Hives Verified 05/17/25 23:01
Neosporin (tyt-fld-azqmv))
polymyxin B (From Neosporin Allergy Hives Verified 05/17/25 23:01
(uhs-xcc-amkoj))
venom-honey bee (bee venom Allergy Hives Verified 05/17/25 23:01
(honey bee))
�Medication �Instructions �Recorded �Confirmed �Type
multivitamin with folic acid 400 1 tab PO DAILY Supplement 07/20/21 05/20/25 History
mcg tablet (Tab-A-Pamela)
letrozole 2.5 mg tablet 2.5 mg PO DAILY Cancer 12/24/22 05/20/25 History
coQ10 (ubiquinol) 200 mg capsule 200 mg PO QPM Supplement 04/09/23 05/20/25 History
borage seed oil 1,000 mg capsule 1,000 mg PO QPM Supplement ##0 05/21/23 05/20/25 History
ferrous sulfate 325 mg (65 mg 325 mg PO MOWEFR Supplement 05/21/23 05/20/25 History
iron) tablet
furosemide 40 mg tablet 40 mg PO DAILY Fluid 08/20/23 05/20/25 History
Retention/Swelling
aspirin 81 mg tablet,delayed 81 mg PO DAILY Blood Clot 05/20/25 05/20/25 History
release Prevention/Tx
diltiazem HCl 180 mg 180 mg PO BID Arrhythmia 05/20/25 05/20/25 History
capsule,extended release 24 hr
empagliflozin 25 mg tablet 12.5 mg PO DAILY Diabetes 05/20/25 05/20/25 History
(Jardiance)
insulin glargine U-300 conc 300 16 unit SC DAILY Diabetes 05/20/25 05/20/25 History
unit/mL (3 mL) subcutaneous pen
(Toujeo Max U-300 SoloStar)
insulin lispro 100 unit/mL 13 unit SC QPM Diabetes 05/20/25 05/20/25 History
subcutaneous pen
insulin lispro 100 unit/mL 14 unit SC DAILY Diabetes 05/20/25 05/20/25 History
subcutaneous pen
insulin lispro 100 unit/mL 19 unit SC DAILY@1200 Diabetes 05/20/25 05/20/25 History
subcutaneous pen
metoprolol succinate 100 mg 100 mg PO BID Heart Failure 05/20/25 05/20/25 History
tablet,extended release 24 hr
(Toprol XL)
potassium chloride 20 mEq 40 meq PO BID Electrolyte Repletion 05/20/25 05/20/25 History
tablet,extended release
red yeast rice 600 mg tablet 1,200 mg PO DAILY Supplement 05/20/25 05/20/25 History
repaglinide 1 mg tablet 3 mg PO AC Diabetes 05/20/25 05/20/25 History
Review of Systems
-
Unable to obtain full review of systems at this time due to: Patient Intubation
History Source: Patient
All other systems: Negative unless noted
Physical Exam
Vital Signs
Vital Signs
Temp Pulse Resp BP Pulse Ox
99.4 F 130 28 143/77 92
05/23/25 07:36 05/23/25 07:54 05/23/25 07:54 05/23/25 07:15 05/23/25 07:54
Lab Results
05/23/25 03:05
05/23/25 03:05
WBC 16.9 10^3/uL (4.8-10.8) H 05/23/25 03:05
RBC 4.14 10^6/uL (4.20-5.40) L 05/23/25 03:05
Hgb 13.9 g/dL (12.0-16.0) 05/23/25 03:05
Hct 40.1 % (37.0-47.0) 05/23/25 03:05
Plt Count 83 10^3/uL (130-400) L 05/23/25 03:05
Sodium 131 mmol/L (135-145) L 05/23/25 03:05
Potassium 4.5 mmol/L (3.5-5.1) 05/23/25 03:05
Chloride 98 mmol/L (98-107) 05/23/25 03:05
Carbon Dioxide 25 mmol/L (22-30) 05/23/25 03:05
BUN 107 mg/dl (7-17) H* 05/23/25 03:05
Creatinine 3.6 mg/dL (0.6-1.0) H 05/23/25 03:05
eGFR 12.48 05/23/25 03:05
Glucose 178 mg/dl (70-99) H 05/23/25 03:05
Calcium 7.9 mg/dl (8.4-10.2) L 05/23/25 03:05
Phosphorus 3.7 mg/dl (2.5-4.5) 05/21/25 05:35
Lal-T-Xbqywsfdiax Pept > 00887 pg/ml 05/20/25 11:40
Albumin 2.7 g/dl (3.5-5.0) L 05/23/25 03:05
Physical Exam
General: Intubated sedated, arousable but does not follow command
HEENT: PERRL, EOMI, Anicteric, ET tube down oropharyngeal airway
Neck: Trachea Midline, No JVD and No Thyromegaly, no Bruits
Respiratory: Coarse to auscultation bilaterally with mechanical lung excursion
Cardiac: S1/S2 irregular irregular tachycardic
Breast: Deferred by me
Abdomen: Soft, Nontender, Nondistended, decreased bowel Sounds and No Hepatosplenomegaly
Rectal: Deferred by Provider
Genito-urinary: No Costovertebral Tenderness
Extremities: No Clubbing, No Cyanosis and No Edema
Skin: No Rash or open lesions
Neuro: Difficult to ascertain on vent and patient appears to be sedated but does move all 4 extremities, some lower extremity tremors noted
Hematologic/Lymphatic: No Cervical Lymphadenopathy, No Submandibular Lymphadenopathy and No Supraclavicular Lymphadenopathy
Psych: Unobtainable as patient is intubated and sedate
Vascular: plus 1 pedal and radial pulses
:Aguirre
Data Reviewed
-
Radiology: Image Personally Visualized and interpreted (Chest x-ray reviewed by me notable for positive bilateral interstitial pattern)
Labs: Labs Reviewed by me (BMP CBC urinalysis blood culture)
Old Records: Reviewed (Reviewed labs from early April 2025 creatinine 2.4)
Assessment/Plan
-
Impression:
EMILY
MSSA bacteremia with multiorgan failure
Vent dependent respiratory failure/suspected pneumonia
Atrial fibrillation with rapid ventricular response
History of CKD stage IV with baseline creatinine 2.4
Diabetes
Severe pulmonary hypertension
Transaminitis
History of TAVR in April 2019
Coronary artery disease with prior history of PCI
History of hypertension
History of ER+ breast cancer s/p L lumpectomy/XRT, on letrozole
Plan:
EMILY:
- Of note CT with IV contrast was obtained on 05/20/2025 possibly potentiating contrast nephropathy
-Likely strong prerenal stimulus in setting of sepsis as noted by hypotension 48 hours prior, now off pressors
-Will check fractional secretion of sodium
-Weights starting to increase, holding diuretics for now
-Will add back alkalize IV fluids if metabolic acidosis exacerbates
-Barely nonoliguric urine output of 500 cc over past 24 hours
-Antibiotics renally dosed (Ancef)
-No acute requirement for dialysis yet
-Patient is critically ill with ongoing sepsis ,Vent dependent respiratory failure , and acute renal failure in setting of MSSA bacteremia
-35 minutes critical care time spent with the patient
[2025-05-23 10:16] LABS: Digoxin 1.8 ng/ml (0.8-2.0)
--- NOTE | 2025-05-23 10:47 | W.PN.HOSP.TC ---
Addendum entered and electronically signed by Moses Downing MD 05/23/25 13:46:
Septic shock, unclear source however with MSSA bacteremia
Continue IV antibiotics per ID, to determine duration of antibiotics for once negative cultures have been obtained
Spine MRI is ordered
-MRI cervical thoracic spine completed. Thoracic spine demonstrating early discitis/osteomyelitis
-L-spine pending
Wean pressor support as tolerated
Maintain MAP greater than 65
Atrial fibrillation with RVR
Initially was rate controlled however again in RVR. Not on Cardizem drip at this time
Will go ahead and order Cardizem drip and have updated cardiology
S/p Watchman
Acute hypoxemic respiratory failure required mechanical ventilation
Daily SAT SBT
Today opening eyes however not following commands, MRI brain pending
Hyponatremia
Improving
Continue tube feeds
Metabolic acidosis
Improved with bicarb drip
EMILY on CKD stage IIIb, worse today
Could be related to ischemic ATN or multifactorial in the setting of ischemic ATN/contrast-induced nephropathy
Renally dosed adjust agents
Monitor urinary output
Check urine analysis along with urine electrolytes
Avoid nephrotoxic agents and hypotension
If not improving will need to consult nephrology
Family updated at bedside
46 minutes critical care time spent with patient and family which excludes teaching
Original Note:
Today's Communication/Plan
-
Continue IV cefazolin, SBT
Assessment / Plan
Assessment / Plan
Assessment:
75-year-old female with a past medical history of paroxysmal A-fib post Watchman procedure, aortic stenosis, mitral stenosis, coronary artery disease post PCI and congestive heart failure with preserved ejection fraction presented to the emergency
room due to progressive weakness over the past few days. She had been in the emergency room here few days ago and was evaluated for lower abdominal pain. CT scan at that time was unremarkable and patient was discharged home. As per the patient's
, patient had been increasingly getting weaker at home and even had trouble getting up. He noticed fever as well as some difficulty breathing alongside vomiting and nausea. Decided to call EMS to go back to the hospital. In the ED she was
found to have elevated lactate, and metabolic acidosis with anion gap. She also had rapid ventricular rate and was given a dose of digoxin and started on Cardizem infusion. Due to the severe sepsis, septic shock, patient was admitted to the ICU.
While in the ICU, she had persistent tachycardia and low respiratory rate. Because of the increased work of breathing, tachypnea, lethargy and restlessness, patient was intubated.
Plan:
#Septic Shock from unknown source
- 1.5 ltr fluid bolus in ED, given pulmonary congestion. Lactate now normalized. BCx with Staph Aureus
- Febrile within past 24 hrs.
- Off pressors with maintained BP. Off precedex for spontaneous breathing. Rousable to voice/touch, but otherwise remains somnolent.
- Thoracic spine MRI with likely discitis. Abx switched from IV Vancomycin, Meropenem to Cefazolin. Appreciate ID
- Bcx grew Staph aureus. Blood Cx from 05/21 no growth
- Follow temp and WBC
#Acute hypoxic respiratory failure secondary to septic shock
- Requiring ventilator support,
- SBT today
- Wean and extubate as possible
# Metabolic acidosis, elevated lactate
- Suspected related to underlying severe sepsis
- Lactate normalized. Ongoing bicarb infusion, metabolic acidosis slowly improving
- Serial lactate, ABGs
# EMILY on CKD
- Worsening In the setting of severe sepsis, also had contrast CT 05/20
- Creatinine 2.8 on admission -> 1.4 -> 2.8 -> 3.6 today, borderline oliguric
- Nephro consult. Check urine studies
- monitor I/O
#Suspect acute HFpEF exacerbation:
- Vs sepsis
- ProBNP 27,000 on admission
- Holding diuretics for now while critically ill
# SVT/Atrial Fibrillation with RVR
- Likely exacerbated by sepsis
- Received Digoxin once, currently ongoing cardizem drip. now in rate controlled Afib
- Status post Watchman procedure, not on anticoagulation at home
- Appreciate cards
#Non-ischemic cardiomyopathy
- 2/2 septic shock
- Troponin peaked at 0.783
# HFrEF
- X-ray suggestive of developing pulmonary congestion
- S/p 1.5 L in the emergency room
- Starting sterile water with sodium bicarbonate in view of metabolic acidosis and pH below 7.2
- Careful of initiating further fluid therapy
- BNP elevated at 27,000
Electrolyte abnormality:
Hypokalemia, hypocalcemia, hyperkalemia
- Monitor and replete as necessary
#Thrombocytopenia:
2/2 to septic shock or medication adverse effect (on Meropenem)
- Monitor
# IDDM
- Continue insulin as ordered (Glargine 16 units, Sliding Scale High resist)
- Hold Jardiance and repaglinide
# Transaminitis
- 2/2 septic shock
# H/o CAD, s/p PCI (2015)
- Stable. Elevated troponin from non-ischemic myocardial injury 2/2 septic shock
- Continue
# History of breast cancer status post lumpectomy and radiation therapy
- Takes Letrozole (Femara) at home, holding in setting of severe sepsis
DVT Prophylaxis: Heparin
Code: limited DNR, including okay to intubate if needed for respiratory reason but not to pursue chest compressions or defibrillation in the setting of cardiac arrest
Anticipated Discharge: > 48 hours
Subjective/Interval History
-
Date of Service: May 23, 2025
Objective Data
-
Labs:
Laboratory Results
05/23/25
03:05
WBC 16.9 H
Hgb 13.9
Hct 40.1
Plt Count 83 L
Sodium 131 L
Potassium 4.5
Chloride 98
Carbon Dioxide 25
BUN 107 H*
Creatinine 3.6 H
Glucose 178 H
Calcium 7.9 L
Total Bilirubin 2.9 H
AST 462 H
ALT 356 H
Alkaline Phosphatase 137 H
Vital Signs:
Vital Signs
Temp Pulse Resp BP Pulse Ox
99.4 F 132 30 147/49 92
05/23/25 07:36 05/23/25 08:35 05/23/25 08:35 05/23/25 09:15 05/23/25 08:35
I&O
05/22/25 05/23/25 05/24/25
06:59 06:59 06:59
Intake Total 1637.9 / 1692.9 1410 / 1460 50 / 50
Output Total 880 / 955 600 / 630 60 / 60
Balance 757.9 / 737.9 810 / 830 -10 / -10
Review of Systems
-
Unable to obtain full review of systems at this time due to: Patient Intubation
Physical Exam
-
HEENT: Atraumatic, Anicteric and Other (Dobhoff, ET tube)
Respiratory: Rhonchi (bilaterally, anterior auscultation)
Cardiac: Regular Rhythm and Tachycardic
GI: Nondistended and Normal Bowel Sounds
Genito-urinary: Aguirre
Musculoskeletal: No Cyanosis and No Edema
Skin: Warm and Dry
Neuro: Tremors (lower extremity) and Other (momentarily rousable to voice and touch. Moves all extremities)
[2025-05-23] MEDS: ANCEF 5 IV ×3 (10:59→23:04)
[2025-05-23 11:06] LABS: Body Fluid for Eosinophils 1% Eosinophils seen
--- NOTE | 2025-05-23 11:11 | PTCARENOTE ---
Patient on SPONT 08:30 to 11:00 Tolerated with no issues. Afib 150's
[2025-05-23 11:51] LABS: Glucose - Point of Care 157 mg/dl (70-99)
--- NOTE | 2025-05-23 12:00 | VATNOTE ---
Called by PCN to assess white lumen of R IJ TLC, unable to flush or aspirate. PCN to get order for cathflo and notify VAT nurse when pt is available to have cathflo instilled in white lumen. Will continue to follow.
[2025-05-23] MEDS: CARDIZEM 15 MG IV (12:11)
[2025-05-23] MEDS: CARDIZEM 125 IV ×3 (12:18→23:53)
--- NOTE | 2025-05-23 12:39 | W.PN.CARDCBS ---
Addendum entered and electronically signed by Cristian Lenz MD 05/23/25 17:54:
MRI of brain shows innumerable scattered nonhemorrhagic acute and subacute infarcts bihemispheric and by cerebellar, suggestive of embolus.
MRI findings could be consistent with cardioembolic stroke. If so, these findings could be from septic emboli from endocarditis, possibly of the transcatheter aortic valve. If so, anticoagulation would be relatively contraindicated.
Alternatively, stroke in permanent atrial fibrillation with Watchman can be seen. At the time of her last transesophageal echo in June 2023 there was no evidence of leakage around the Watchman which would be a risk factor for stroke. If embolic
disease is related to technical issue with Watchman, anticoagulation would be indicated.
Under normal circumstances, would obtain neurology consult and consider anticoagulation with eye towards transesophageal echo to help guide management.
However, it seems that prognosis is poor. She is still on the ventilator, likely has a discitis, has mental status changes, and EMILY, hepatic injury etc. - likelihood of a satisfactory recovery is low and prognosis is very guarded. Goals of care
may need to be reconsidered, and it may be that strategy is geared towards comfort. This would be reasonable if family is in agreement.
Her is reported to be on his way. Will await the results of his discussion.
Original Note:
Today's Communication / Plan
-
Add metoprolol 25 mg Q6 via tube for better rate control
Continue IV diltiazem
Volume management per nephrology
Impression / Plan
-
Primary Isobutylene Operator Chief: Dr. Baez
Assessment:
Severe sepsis with shock with multisystem organ failure and Staph aureus bacteremia
Presumed pneumonia
Severe pulmonary hypertension
EMILY on CKD
Hepatic injury presumably related to sepsis
Permanent atrial fibrillation, presently with RVR
s/p PVI 2011, 2012
S/p Watchman implant 06/04/2023 (post watchman ROBERT 07/17/2023 stable)
Acute on chronic HFpEF
Elevated troponin, peak 0.73
s/p TAVR 04/2019
Mild mitral stenosis
CAD s/p LAD PCI which jailed diagonal branch 2015, residual 1st diag stenosis 60-70%, stable by cath 02/2019
CKD3B
HTN
HLD
DM2
Obesity
History of hives with amiodarone
H/O GIB w/ anemia
History of ER+ breast cancer s/p L lumpectomy/XRT, on letrozole
Possible L1 discitis/osteomyelitis
Echo 09/19/2024: EF 55 to 60%, mild concentric LVH, mild to moderate MS with peak/mean gradients 20/7 mmHg, TAVR with peak/mean gradients 35/18 mmHg, no AR, moderate TR, PAP 74 mmHg, enlarged RA and RV with reduced RV systolic function
Echo 05/21/2025: Small LV, septal straightening, ejection fraction 60%, mild mitral stenosis with dense MAC, mean mitral valve gradient 5, mild MR, dilated left atrium, transcatheter aortic valve, peak/mean gradient 9 and 5 mmHg. Dilated and
hypokinetic right ventricle, pulmonary artery systolic pressure is 90. Previously pulmonary artery pressure had been 74 mmHg
Plan:
She has developed a recurrent rapid ventricular response to atrial fibrillation. Rates have been controlled on IV diltiazem, she was converted to diltiazem via the tube, heart rate is now 150. Slightly better with start of diltiazem infusion.
As outpatient, she had required diltiazem CD1 180 mg twice daily plus metoprolol ER 100 mg twice daily for control of heart failure. We will continue IV diltiazem and I will restart metoprolol at 25 mg via the tube every 6 hours and uptitrate as
needed.
Not anticoagulated, she has a Watchman in place.
Blood pressure is good, I anticipate that she will tolerate metoprolol from a blood pressure standpoint.
She now has EMILY on CKD, presumably related to sepsis and possibly IV contrast. Baseline creatinine appears to be 2.1. Nephrology has been consulted. Ideally, will treat with IV furosemide as she is volume overloaded, but in setting of EMILY will
hold for now.
Management of Staph aureus sepsis per party plan sales unit sales leader, ID, and hospitalist.
Despite markedly elevated proBNP her volume status does not look bad. I would favor attempts at diuresis, but consider renal consultation and would defer to them regarding IV diuretics.
Progress Note - Isobutylene Operator Chief
Subjective
Date of Service: May 23, 2025:
75-year-old woman admitted with MSSA bacteremia and sepsis in the setting of permanent atrial fibrillation, with hypotension and rapid ventricular response to permanent atrial fibrillation, history of CKD with baseline creatinine 2.7. Seen in the
emergency department on 05/18 with lower abdominal pain, CT scan of abdomen and pelvis was relatively unremarkable, small gallstones, bladder wall thickening
PMH: CKD 3B, history of #26 CoreValve TAVR 2018, permanent atrial fibrillation, Watchman, hypertension, type 2 diabetes, mitral stenosis with peak/mean gradient 20 and 7.25 August 2024, CAD, drug-eluting stent to LAD, jailed diagonal branch, PVI
2011 and 2012, history of GI bleeding, hypertension, type 2 diabetes, left breast cancer with lumpectomy and XRT, hyperlipidemia, severe pulmonary hypertension
Allergies: Amiodarone
Current medication: Precedex, letrozole, MiraLAX, aspirin 81 mg a day, pantoprazole, subcu heparin, Lantus insulin, diltiazem now IV, had been 90 mg via tube every 8, [id number], pulse 53, respiratory rate 30, temp is 37.6, weight is 91.3 kg,
unchanged, at admission was 85.7 kg, urine output roughly 500 mL, sedated but opens eyes, does not follow commands, intubated, did reasonably well on breathing trial apparently earlier today, feeding tube in place, lungs relatively clear,
tachycardic, Irregular no obvious murmurs, JVD difficult to assess, minimal edema
White count is 16.9, had been 13.6, platelets are 83K, had been 87, 216 on admission, BUN and creatinine are 107 and 3.6, on admission at baseline, 2.1, current digoxin level 1.8, had been 3.1, Peak troponin was 0.783, proBNP May 20 was greater
than 27,000
MRI shows possible L1 early discitis/osteomyelitis - No evidence of osteo in the cervical spine
Objective
Labs:
05/23/25 03:05
05/23/25 03:05
Labs
Hgb 13.9 g/dL (12.0-16.0) 05/23/25 03:05
Hct 40.1 % (37.0-47.0) 05/23/25 03:05
Plt Count 83 10^3/uL (130-400) L 05/23/25 03:05
PT 24.5 Sec (11.4-14.6) H 05/20/25 14:31
INR 2.15 05/20/25 14:31
APTT 43.1 Sec (23.4-35.0) H 05/20/25 14:31
Sodium 131 mmol/L (135-145) L 05/23/25 03:05
Potassium 4.5 mmol/L (3.5-5.1) 05/23/25 03:05
BUN 107 mg/dl (7-17) H* 05/23/25 03:05
Creatinine 3.6 mg/dL (0.6-1.0) H 05/23/25 03:05
Glucose 178 mg/dl (70-99) H 05/23/25 03:05
Digoxin 1.8 ng/ml (0.8-2.0) 05/23/25 03:05
Troponins
05/21/25 05/21/25 05/21/25
05:35 09:51 11:30
Troponin I 0.617 H* 0.783 H* D Cancelled
05/21/25 05/21/25 05/21/25
15:30 19:30 23:30
Troponin I 0.636 H* Cancelled Cancelled
Vital Signs and I&O:
Vital Signs
Temp Pulse Resp BP Pulse Ox
37.6 C 152 30 148/87 92
05/23/25 11:13 05/23/25 12:11 05/23/25 08:35 05/23/25 12:11 05/23/25 11:07
Vital Signs
Temp Pulse Resp BP Pulse Ox
37.6 C 152 30 148/87 92
05/23/25 11:13 05/23/25 12:11 05/23/25 08:35 05/23/25 12:11 05/23/25 11:07
Intake & Output
05/21/25 05/22/25 05/23/25 05/24/25
07:59 07:59 07:59 07:59
Intake Total 2458.2 / 2487.4 1663.7 / 1718.7 1405 / 1405
Output Total 1240 / 1265 930 / 1005 555 / 585 105 / 105
Balance 1218.2 / 1222.4 733.7 / 713.7 850 / 820 -105 / -105
Physical Exam
Physical Exam
See above
[2025-05-23] MEDS: SODIUM BICARBONATE IV (16:01)
--- NOTE | 2025-05-23 16:41 | PTCARENOTE ---
13:00 until 15:30 patient off floor to MRI
[2025-05-23] MEDS: LOPRESSOR 25 MG TUBE ×2 (17:43→23:04)
[2025-05-23 17:45] LABS: Glucose - Point of Care 123 mg/dl (70-99)
[2025-05-23] MEDS: CATHFLO/ACTIVASE 2 MG INTRACATH (17:57)
[2025-05-23 18:01] LABS: Glucose - Point of Care 117 mg/dl (70-99)
--- NOTE | 2025-05-23 18:16 | W.PN.UPDATE ---
Update Note
Progress Note Update
Called family and spoke to and daughter to give update about MRI result of multiple scattered infarcts. Neurology has been consulted. We briefly discussed a general summary of her critical status, from respiratory failure, septic shock,
discitis on MRI thoracic spine, worsening kidney function, CHF exacerbation, and now MRI with multiple infarcts suspicious for embolic stroke. Prognosis is guarded at this time. Family plans to be present around 10am tomorrow morning and are hopeful
for a detailed update and goals of care discussion.
--- NOTE | 2025-05-23 18:55 | PTCARENOTE ---
Patient RASS -4 (No response to voice, but moves b/l UE and Le and open eyes physical stimulation); Restraints soft b/l UE; Afib 99-110 . Cardizem 15 unit/15ml+ Metoprolol 25 via dophoff administered. B/L UE +2 edema. Incontinent of bowel;
Indwelling Aguirre dark margaret, clear.
[2025-05-23] MEDS: NOVOLOG FLEXPEN SC (19:09)
[2025-05-23] MEDS: NOVOLOG FLEXPEN-HIGH RESISTANCE 1 UNITS SC (19:17)
--- NOTE | 2025-05-23 20:16 | VATNOTE ---
Rec'd. order to cath janie white lumen of RT IJ TLC for occlusion. Cath janie instilled at 18:00 per protocol and positive blood return obtained. manager family aware.
--- NOTE | 2025-05-23 20:25 | PTCARENOTE ---
rec'd pt. pt drowsy but arousable to voice, off all sedation. pupils b/l 3mm reactive. pt with weak hand grasp, able to wiggle toes slightly. restraints intact. +cough/gag/corneals. afib on monitor, cardizem gtt continues. #7.0 ETT, 21 @ lip,
adjusted to R side. AC 20/450/40%/5. DHT L nare @ 70cm. CHG bath, moore care, oral care done. pt with small BM. repositioned with extremities elevated. family @ bedside, updated on plan of care. care continues.
[2025-05-23 23:56] LABS: Glucose - Point of Care 158 mg/dl (70-99)
[2025-05-24] VITALS (17 sets, daily range): BP systolic 119–158; BP diastolic 52–92; BMI 39.7
[2025-05-24] MEDS: NOVOLOG FLEXPEN SC ×2 (00:10→05:03)
[2025-05-24] MEDS: NOVOLOG FLEXPEN-HIGH RESISTANCE 2 UNITS SC ×2 (00:35→05:02)
--- NOTE | 2025-05-24 00:36 | PTCARENOTE ---
pt reassessed. pt nodding y/n appropriately. DHT flushed. cardizem gtt continues, remains afib on monitor, HR up to 130s - ICU DIRECTOR OF MARKET ANALYSIS aware, no further orders given. care continues.
[2025-05-24] MEDS: HEPARIN 5000 UNITS SC (03:05)
[2025-05-24 03:35] LABS: Hematocrit 39.9 % (37.0-47.0); Hemoglobin 13.8 g/dL (12.0-16.0); Mean Corp Hgb Conc. 34.6 g/dL (33.0-37.0); Mean Corpuscular Volume 96.1 fL (81.0-99.0); Platelet Count 74 10^3/uL (130-400); Red Cell Dist. Width 15.9 % (11.5-14.5)
[2025-05-24 04:06] LABS: ALT (SGPT) 261 U/L (0-35); AST (SGOT) 281 U/L (14-36); Albumin 2.8 g/dl (3.5-5.0); Alkaline Phosphatase 137 U/L (38-126); Blood Urea Nitrogen 109 mg/dl (7-17); Calcium 7.8 mg/dl (8.4-10.2); Carbon Dioxide 25 mmol/L (22-30); Chloride 101 mmol/L (98-107); Estimated Creatinine Clearance 14 ml/min; Glucose 160 mg/dl (70-99); Magnesium 3.3 mg/dl (1.6-2.3); Potassium 4.3 mmol/L (3.5-5.1); Sodium 134 mmol/L (135-145); Total Protein 5.6 g/dl (6.3-8.2); eGFR 12.90
[2025-05-24 04:17] LABS: B.E. 1.8 mmol/L; HCO3 23.9 mmol/L (21-28); O2 Saturation % 97.6 % (94-98); PCO2 30 mmHg (32-35); PO2 81 mmHg (83-108)
[2025-05-24 04:21] LABS: O2 Therapy VENT
--- NOTE | 2025-05-24 04:33 | PTCARENOTE ---
AM labs sent. neuro status unchanged. remains afib on monitor, cardizem gtt continues. ICU VOLLEYBALL ASSISTANT COACH aware of HR up to 130s overnight but not sustaining - no new orders. RR decreased to 16. ETT adjusted. adequate UOP overnight. care continues.
[2025-05-24] MEDS: LOPRESSOR 25 MG TUBE (05:02)
[2025-05-24 05:13] LABS: Glucose - Point of Care 165 mg/dl (70-99)
--- NOTE | 2025-05-24 07:06 | W.PN.HOSP.TC ---
Today's Communication/Plan
-
Continue IV Abx
Continue Cardizem drip with oral metoprolol
Extubate as possible
Goals of Care discussion with family today
Assessment / Plan
Assessment / Plan
Assessment:
75-year-old female with a past medical history of paroxysmal A-fib post Watchman procedure, aortic stenosis, mitral stenosis, coronary artery disease post PCI and congestive heart failure with preserved ejection fraction presented to the emergency
room due to progressive weakness over the past few days. She had been in the emergency room here few days ago and was evaluated for lower abdominal pain. CT scan at that time was unremarkable and patient was discharged home. As per the patient's
, patient had been increasingly getting weaker at home and even had trouble getting up. He noticed fever as well as some difficulty breathing alongside vomiting and nausea. Decided to call EMS to go back to the hospital. In the ED she was
found to have elevated lactate, and metabolic acidosis with anion gap. She also had rapid ventricular rate and was given a dose of digoxin and started on Cardizem infusion. Due to the severe sepsis, septic shock, patient was admitted to the ICU.
While in the ICU, she had persistent tachycardia and low respiratory rate. Because of the increased work of breathing, tachypnea, lethargy and restlessness, patient was intubated. Patient's cultures grew MSSA, and was found to have innumerable
septic emboli in her brain on MRI. Also was seen to have discitis on the back MRI. Patient continues to be on antibiotics however goals of care discussion to be had with today
Plan:
#Septic Shock from Discitis
- 1.5 ltr fluid bolus in ED, given pulmonary congestion. Lactate normalized
- Off pressors but remains sedated, failed extubation. MRI showed innumerable scattered nonhemorrhagic acute and subacute infarcts
- Bcx grew Staph aureus, likely from discitis
- Appreciate ID recs
- Continue IV Ancef
#Acute hypoxic respiratory failure secondary to septic shock
- Requiring ventilator support, failed extubation attempt today
- Currently on breathing trial, wean and extubate as possible
#Cardioembolic stroke
- As seen on MRI Head: innumerable scattered nonhemorrhagic acute and subacute infarcts bihemispheric and by cerebellar, suggestive of embolus
- mental status changes most likely due to these emboli
- Family discussion regarding poor prognosis to be done today
- Cardiology following, input appreciation
# Metabolic acidosis, elevated lactate
- Suspected related to underlying severe sepsis
- Improved with bicarb drip
- Serial ABGs
# EMILY on CKD3B
- Ongoing, In the setting of severe sepsis, probably made worse with contrast
- Mild improvement from yesterday, producing Urine
- Sodium bicarbonate infusion as above, serial labs, monitor I/O
#Suspect acute HFpEF exacerbation:
- Vs sepsis
- ProBNP 27,000 on admission
- Holding diuretics for now while critically ill
# SVT/Atrial Fibrillation with RVR
- Likely exacerbated by sepsis
- Status post Watchman procedure, not on anticoagulation at home
- Appreciate cards
- On Cardizem drip, with Lopressor support. Continued tachycardia
#Non-ischemic cardiomyopathy
- 2/2 septic shock
- Troponin peaked at 0.783
# HFrEF
- X-ray suggestive of developing pulmonary congestion
- S/p 1.5 L in the emergency room
- Starting sterile water with sodium bicarbonate in view of metabolic acidosis and pH below 7.2
- Careful of initiating further fluid therapy
- BNP elevated at 27,000
Electrolyte abnormality:
Hypokalemia, hypocalcemia, hyperkalemia
- Monitor and replete as necessary
#Thrombocytopenia:
2/2 to septic shock or medication adverse effect (on Meropenem)
- Monitor
# IDDM
- Continue insulin as ordered (Glargine 16 units, Sliding Scale High resist)
- Hold Jardiance and repaglinide
# Transaminitis
- 2/2 septic shock
- Improving
# H/o CAD, s/p PCI (2016)
- Stable. Elevated troponin from non-ischemic myocardial injury 2/2 septic shock
- Continue
# History of breast cancer status post lumpectomy and radiation therapy
- Takes Letrozole (Femara) at home, holding in setting of severe sepsis
DVT Prophylaxis: Heparin
Code: limited DNR, including okay to intubate if needed for respiratory reason but not to pursue chest compressions or defibrillation in the setting of cardiac arrest
Anticipated Discharge: > 48 hours
Subjective/Interval History
-
Date of Service: May 24, 2025
Patient seen this morning, still very sedated however able to react to questions, was able to give a thumbs up on the right side. Left upper extremity she cannot move. Was able to wiggle her toes as well. Continues to be on a ventilator however
was undergoing breathing trial. Has been off of pressors and sedative medications now. Has not required Precedex as per nurse.
Objective Data
-
Labs:
Laboratory Results
05/24/25 05/24/25
03:11 03:59
WBC 14.6 H
Hgb 13.8
Hct 39.9
Plt Count 74 L
HCO3 23.9
Sodium 134 L
Potassium 4.3
Chloride 101
Carbon Dioxide 25
BUN 109 H*
Creatinine 3.5 H
Glucose 160 H
Calcium 7.8 L
Total Bilirubin 2.8 H
AST 281 H
ALT 261 H
Alkaline Phosphatase 137 H
Vital Signs:
Vital Signs
Temp Pulse Resp BP Pulse Ox
99.7 F 99 21 143/84 94
05/24/25 03:13 05/24/25 06:00 05/24/25 06:00 05/24/25 06:00 05/24/25 06:00
I&O
05/23/25 05/24/25 05/25/25
06:59 06:59 06:59
Intake Total 1410 / 1460 515 / 515
Output Total 600 / 630 1265 / 1265
Balance 810 / 830 -750 / -750
Review of Systems
-
Unable to obtain full review of systems at this time due to: Patient Intubation
Physical Exam
-
General: Intubated
HEENT: Atraumatic, Anicteric and Other (Dobhoff, ET tube)
Respiratory: Rhonchi (bilaterally, anterior auscultation)
Cardiac: Regular Rhythm and Tachycardic
GI: Soft, Nondistended and Normal Bowel Sounds
Genito-urinary: Aguirre
Musculoskeletal: No Cyanosis and No Edema
Skin: Warm and Dry
Neuro: Other (momentarily rousable to voice and touch. Unable to move left upper extremity)
Data Reviewed
-
MRI: Report Reviewed by me, Discussed with Physician and Discussed with Nurse
Labs: Labs Reviewed by me, Discussed with Physician and Discussed with Nurse
--- NOTE | 2025-05-24 07:20 | W.PN.INTV ---
Addendum entered and electronically signed by Kasey Bazan, DO 05/24/25 10:25:
Family mtg with care team, they will move towards comfort measures in light of new medical diagnosis
Will move towards terminal extubation, DNR
Hospice consulted
Following transition to comfort/extubation, we will sign off--please call with questions
Original Note:
Today's Communication / Plan
Recommendations
Off pressors/sedation >48 hours, MS still remains poor
MRI brain and spine showing disseminated MSSA, ID following for IV abx
EMILY noted, diuresis ongoing--renal following
Continue efforts to wean, SBT--check ABG today
Start TFs likely today due to seemingly prolonged course on vent
Assessment
-
Patient is a 75-year-old female with complicated past medical cardiac history including aortic stenosis, mitral stenosis, status post Watchman procedure, coronary artery disease status post PCI and congestive heart failure with preserved ejection
fraction who presents to emergency room with progressive weakness over the last few days. She was evaluated in the emergency room couple of days ago for lower abdominal pain and had a CT scan which was unremarkable. Patient's reports that
over the last 24 to 48 hours she has been progressively getting weaker at home and having increasing difficulty getting up. Today he noted fever as well as change in her breathing pattern. He was unable to get her off the couch and called EMS and
patient was brought to the emergency room. She was noted to be quite tachycardic febrile with borderline blood pressure. Patient reportedly vomited twice the day before and reports feeling nauseous. Additional workup was suggestive of elevated
lactate, metabolic acidosis. In view of her rapid ventricular rate, cardiology service evaluated the patient in the emergency room, she was given a dose of digoxin and then started on Cardizem infusion. Patient was subsequently admitted to ICU in
the setting of severe sepsis with metabolic acidosis, elevated lactate and traffic agent consult was requested for further input.
MSSA bacteremia
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
MRI w/ possible early discitis/osteomyelitis
LLL consolidation possible pneumonia, sputum + MSSA
Metabolic acidosis, elevated lactate
EMILY on CKD with hyperkalemia.
SVT/Atrial Fibrillation with RVR
HFrEF, acute on chronic
Abnormal LFTs
TME
Severe pulm HTN, progressed
Other medical diagnoses:
History of aortic stenosis, s/p TAVR in 2019
H/o CAD, s/p LAD PCI which jailed diagonal branch 2015, residual 1st diag stenosis 60-70%, stable by cath 02/2019
Paroxysmal atrial fibrillation/chronic OAC with eliquis
Status post PVI 2011, 2012
S/p Watchman procedure
Pulmonary HTN
CKD
Hypertension
Hyperlipidemia
IDDM
History of breast cancer status postlumpectomy and radiation therapy
Moderate mitral stenosis
Obesity
Right foot surgery
Rectal fissure
Plan
Wean sedation, fent bolus/precedex gtt--weaned off sedation x 48 hours now
Sedation holiday continued given poor MS
MRI brain noted with lesions/infarcts likely septic cause
Neuro eval for ERP IMPLEMENTATION CONSULTANT prognosis
Rass goal 0
Weaned pressors to off x 48-72 hours, s/p 1.5 L fluid bolus in ED
SVT/Atrial Fibrillation with RVR history/Status post Watchman procedure, not on anticoagulation at home
Cardiology service consulted
Patient on cardizem infusion and also received Digoxin IV
Heart rate in 160s in the ICU, give Lopressor 2.5 mg IV stat. Currently on Cardizem PO, cardiology service on case
HFrEF/X-ray suggestive of developing pulmonary congestion--BNP elevated at 27,000, eventual diuresis will be needed
H/o CAD, s/p PCI (2015)
Pulmonary HTN- Pulmonary artery systolic pressure of 74 on echo in August 2024. Also reduced RV systolic function with enlarged size.
Suspect group II pulmonary hypertension in the setting of severe aortic stenosis s/p TAVR/moderate mitral stenosis/HFpEF
Right heart cath in 2018 had a pulmonary capillary wedge pressure of 30 and mean pulmonary artery pressure of 37.
Diuresis per team
Intubated due to distress/WOB
No prior history of known pulmonary disease
Vent settings noted, PS wean attempts, failed
Repeat ABG as needed
Repeat CXR showing possible LLL findings
Sputum culture +MSSA
Continue SBT attempts
NPO for now
Tube feeding given prolongation on vent, start 05/24
Abnormal LFTs - Suspect acute abnormality in AST ALT in the setting of severe sepsis
PT, INR and PTT--elevated
SA bacteremia, MSSA
MRI noted with early discitis/osteomyelitis, brain MRI with septic emboli
Broad spectrum antibiotics, IV Vancomycin, Meropenem--transitioned to Nafcillin IV
ID following
EMILY on CKD with hyperkalemia.
pH 7.18, elevated lactate at 7.8. met acid s/p bicarb IVFs
Creat worsening, agree with nephro consult
Monitor I/O, moore
IDDM
- Continue insulin as ordered
- Hold Jardiance and repaglinide
SS insulin PRN
Family Discussions
Juan 05/20/2025: I met with patient in the respite room, later at bedside. We went over patient's current condition. He expressed that patient had expressed to him that she would not want to be on life support for a long period of time
and would not want chest compressions or shocks. We discussed various code options including full code DNR, DNI. Patient has been opted to proceed with limited DNR, including okay to intubate if needed for respiratory reason but not to pursue
chest compressions or defibrillation in the setting of cardiac arrest. CODE STATUS updated
Data:
CXR 04/2025: No evidence of pneumonia. Slight prominent bronchovascular markings and mild bronchial wall thickening, which could indicate an element of mild interstitial edema or possibly viral respiratory syndrome.
CT Abd/pelvis 04/2025: No acute pathology of the abdomen or pelvis identified. Tiny fat-containing umbilical hernia. No evidence of incarceration or strangulation. Stable. Gallstones. Enlarged.
Mild diverticulosis. Stable Mild diffuse bladder wall thickening. This can be seen with cystitis or bladder outlet obstruction. Stable Mild free fluid in the pelvis. New. Uncommon in a postmenopausal female. Etiology unknown.
ECHO 05/20/25- Small left ventricle with mild to moderate left ventricular hypertrophy and septal straightening related to RV pressure overload. The ejection fraction is 60%.
2. Mild mitral stenosis with leaflet calcification and dense mitral annular calcification. Mean mitral valve gradient is 5 mmHg. There is mild mitral regurgitation and left atrial dilatation.
3. Transcatheter aortic valve with peak and mean gradients of 9 and 5 mmHg. No aortic regurgitation.
4. Dilated and hypokinetic right ventricle with dilated right atrium, severe tricuspid regurgitation, and severe pulmonary artery systolic pressure, 90 mmHg systolic.
5. In August 2024 there was mild LVH with an ejection fraction of 55 to 60%. Peak and mean mitral valve gradients were 20 and 7.3 mmHg. No mitral regurgitation was seen. The left atrium was normal. Peak and mean aortic valve gradients across the
transcatheter aortic valve were 35 and 18 of mercury. The pulmonary artery systolic pressure was 74 mmHg. The RV was dilated and hypokinetic.
ECHO 08/2024: Normal left ventricular size and systolic function. Mild concentric LVH. No regional wall motion abnormalities are seen. LV ejection fraction is 55-60% by Springer's method of discs. Diastolic function indeterminate due to atrial
fibrillation. Calcified mitral valve leaflets with decreased excursion. Mild to moderate mitral stenosis. Peak/mean gradients across the mitral valve are 19.9 7.3 mmHg respectively. No mitral regurgitation is seen. Normal left atrial size.
Indexed LA volume is within normal range (15-34 mL/m2). TAVR with peak/mean gradients across the aortic valve are 34.6/18 mmHg respectively. No aortic regurgitation is seen. Tricuspid valve opens normally. Moderate tricuspid regurgitation.
Estimated pulmonary artery pressure of 74 mmHg. Assuming a right atrial pressure of 8 mmHg. Enlarged right atrium. Enlarged right ventricular size. Reduced right ventricular systolic function. Since echocardiogram 08/20/2023, there is no
significant change. Mean pressure
gradient across TAVR is increased slightly from 8 mmHg to 18 mmHg.
-----
Critical Care time 33 mins -- The patient is admitted for acute critical illness for the treatment of vital organ failure and/or prevention of further life-threatening conditions. Total care includes time spent in review of history, physical exam,
medications, hemodynamic/ventilator parameters, laboratory data, imaging and discussion with house staff, pharmacy, respiratory therapy, air drill operator, and nursing.
Subjective Dataa
Subjective Data
Date of Service:
Date of Service: May 24, 2025
Chief Complaint: Machine Adjuster Leader Case Trim Follow Up
Subjective:
remains intubated, failed weans due to tachypnea, tachycardia, hypoxemia
MS waxing/waning, remaining overall poor off sedation >48 hours
Objective Data
Data Reviewed
Vital Signs / I&O / Oxygen:
Vital Signs
Temp Pulse Resp BP Pulse Ox
99.7 F 99 21 143/84 94
05/24/25 03:13 05/24/25 06:00 05/24/25 06:00 05/24/25 06:00 05/24/25 06:00
Intake and Output
05/23/25 05/24/25 05/25/25
06:59 06:59 06:59
Intake Total 1410 / 1460 515 / 515
Output Total 600 / 630 1265 / 1265
Balance 810 / 830 -750 / -750
SaO2 [A/C] 94
SaO2 94
Nasal Cannula flow liters per 4
minute
Physical Exam
General: Comfortable and Other (NAD)
HEENT: Normocephalic, Anicteric and Moist Mucous Membranes
Cardiovascular: S1-S2 and Regular Rhythm
Respiratory: Crackles, Non-Labored Respirations and ET Tube
GI: Soft, Non Distended and Non Tender
Neurology: No Motor Deficits and Lethargic (-3)
Skin: Warm, Dry and Good Color
Labs/Micro/Reports
Lab Data
05/24/25 03:11
05/24/25 03:11
Laboratory Results
05/24/25
03:59
pH 7.51 H
pCO2 30 L
pO2 81 L
HCO3 23.9
O2 Delivery Level Vent
Microbiology
05/21/25 15:30 Blood/Venous Blood Culture - Preliminary
No Growth in 48 hours- Final report to follow
05/21/25 10:38 Sputum Respiratory Culture - Final
S aureus-Methicillin Sensitive
05/21/25 10:38 Sputum Gram Stain - Final
05/20/25 11:03 Blood/Venous Blood Culture - Final
S aureus-Methicillin Sensitive
05/20/25 11:03 Blood/Venous Gram Stain - Final
05/20/25 11:03 Blood/Venous Blood Culture - Final
S aureus-Methicillin Sensitive
05/20/25 11:03 Blood/Venous Gram Stain - Final
--- NOTE | 2025-05-24 07:30 | PTCARENOTE ---
Received pt intubated with bilateral soft wrist restraints intact. She opened her eyes to loud verbal and tactile stimulation. PERRLA+3. She was able to follow simple commands and reacted appropriately when I told her that she has been here for 4
days now. She was informed of the events of her hospitalization thus far and the plan of care today regarding a meeting to discuss goals of care and the plan moving forward. She nodded, Right upper extremity paretic with +1 edema. Only wiggling her
left foot. No gross motor movement like her right L/E. BP cuff moved to right upper extremity. Doppler radial pulses. Doppler pedal pulses. +2 L/E edema. #7.5 ETT secured 21cm centered. Tolerating AC 16/450/.40/+5. Breath sounds CTA anteriorly. +
hyperactive BSX4. Indwelling temperature sensing Aguirre catheter secured. Draining yellow urine. Right IJ TL CVC with Cardizem @ 15mg/hr. NSS KVO, other port flushed and patent. Abdomen with ecchymosis, right upper thigh with resolving bruise maroon
in color. Extremities elevated on pillows. Right Nare DHT secured 70cm, green bilious secretions noted an aspiration. Aspiration precautions maintained. Safe environment maintained.
--- NOTE | 2025-05-24 07:52 | W.PN.CARDCBS ---
Today's Communication / Plan
-
Rate control with IV diltiazem/oral metoprolol
ABX per primary service
Impression / Plan
-
Primary Topper Packer: Dr. Baez
Assessment:
Severe sepsis with shock with multisystem organ failure and Staph aureus bacteremia
CVA, new, embolic, unclear etiology, concern for septic embolic from disciitis/osteomyelitis
- Brain MRI showing innumerable scattered nonhemorrhagic acute and subacute infarcts bihemispheric and by cerebellar, suggestive of embolus.
Presumed pneumonia
Severe pulmonary hypertension
EMILY on CKD
Hepatic injury presumably related to sepsis
Permanent atrial fibrillation, presently with RVR
s/p PVI 2011, 2012
S/p Watchman implant 06/04/2023 (post watchman ROBERT 07/17/2023 stable)
Acute on chronic HFpEF
Elevated troponin, peak 0.73
s/p TAVR 04/2019
Mild mitral stenosis
CAD s/p LAD PCI which jailed diagonal branch 2015, residual 1st diag stenosis 60-70%, stable by cath 02/2019
CKD3B
HTN
HLD
DM2
Obesity
History of hives with amiodarone
H/O GIB w/ anemia
History of ER+ breast cancer s/p L lumpectomy/XRT, on letrozole
Possible L1 discitis/osteomyelitis
Echo 09/19/2024: EF 55 to 60%, mild concentric LVH, mild to moderate MS with peak/mean gradients 20/7 mmHg, TAVR with peak/mean gradients 35/18 mmHg, no AR, moderate TR, PAP 74 mmHg, enlarged RA and RV with reduced RV systolic function
Echo 05/21/2025: Small LV, septal straightening, ejection fraction 60%, mild mitral stenosis with dense MAC, mean mitral valve gradient 5, mild MR, dilated left atrium, transcatheter aortic valve, peak/mean gradient 9 and 5 mmHg. Dilated and
hypokinetic right ventricle, pulmonary artery systolic pressure is 90. Previously pulmonary artery pressure had been 74 mmHg
Plan:
AFRVR in the setting of acute medical illness; rates have been controlled on IV diltiazem and oral metoprolol via NGT; HR currently 110 bpm; can increased from 25 q6 to 50q6 if HR consistently remains elevated; would favor treating underlying causes
As outpatient, she had required diltiazem CD1 180 mg twice daily plus metoprolol ER 100 mg twice daily for control of heart failure.
Not anticoagulated, she has a Watchman in place.
Blood pressure is good, I anticipate that she will tolerate metoprolol from a blood pressure standpoint.
Patient with EMILY on CKD, presumably related to sepsis and possibly IV contrast. Baseline creatinine appears to be 2.1. Nephrology has been consulted. Ideally, will treat with IV furosemide as she is volume overloaded, but in setting of EMILY will
hold for now; weight again is increased but will defer diuresis to nephrology
Management of Staph aureus sepsis per brickmason supervisor, ID, and hospitalist.
Overall, very guarded prognosis in the setting infection and brain imagin demonstrating bihemispheric infarcts with reconsideration of GOC discussions
Progress Note - Topper Packer
Subjective
Date of Service: May 24, 2025
Patient seen and examined's morning. Patient intubated, sedated, on mechanical ventilation. Nonpurposeful movements. Telemetry demonstrating AF.
Objective
Labs:
05/24/25 03:11
05/24/25 03:11
Labs
Hgb 13.8 g/dL (12.0-16.0) 05/24/25 03:11
Hct 39.9 % (37.0-47.0) 05/24/25 03:11
Plt Count 74 10^3/uL (130-400) L 05/24/25 03:11
PT 24.5 Sec (11.4-14.6) H 05/20/25 14:31
INR 2.15 05/20/25 14:31
APTT 43.1 Sec (23.4-35.0) H 05/20/25 14:31
Sodium 134 mmol/L (135-145) L 05/24/25 03:11
Potassium 4.3 mmol/L (3.5-5.1) 05/24/25 03:11
BUN 109 mg/dl (7-17) H* 05/24/25 03:11
Creatinine 3.5 mg/dL (0.6-1.0) H 05/24/25 03:11
Glucose 160 mg/dl (70-99) H 05/24/25 03:11
Digoxin 1.8 ng/ml (0.8-2.0) 05/23/25 03:05
Troponins
05/21/25 05/21/25 05/21/25
09:51 11:30 15:30
Troponin I 0.783 H* D Cancelled 0.636 H*
05/21/25 05/21/25
19:30 23:30
Troponin I Cancelled Cancelled
Vital Signs and I&O:
Vital Signs
Temp Pulse Resp BP Pulse Ox
99.7 F 99 21 143/84 93
05/24/25 03:13 05/24/25 06:00 05/24/25 06:00 05/24/25 06:00 05/24/25 07:39
Vital Signs
Temp Pulse Resp BP Pulse Ox
99.7 F 99 21 143/84 93
05/24/25 03:13 05/24/25 06:00 05/24/25 06:00 05/24/25 06:00 05/24/25 07:39
Intake & Output
05/22/25 05/23/25 05/24/25 05/25/25
06:59 06:59 06:59 06:59
Intake Total 1637.9 / 1692.9 1410 / 1460 515 / 540
Output Total 880 / 955 600 / 630 1265 / 1335 70 / 70
Balance 757.9 / 737.9 810 / 830 -750 / -795 -45 / -45
Physical Exam
Physical Exam
GENERAL: no acute distress, intubated/sedated on mechanical ventilation
EYE: sclera anicteric
NECK: Supple, no JVD, no carotid bruit appreciated
ENT: normal nose, dry mucosal membranes
CARDIAC: Irregularly irregular, +S1/S2, no murmur, rubs, or gallops
CHEST/PULMONARY: Normal effort, mechanical breath sounds, diminished bases
ABDOMEN: Soft, without focal tenderness or distention
NEUROLOGICAL: intubated/sedated
SKIN: Warm and dry, no rash
telemetry: AF
[2025-05-24] MEDS: CARDIZEM 125 IV ×2 (07:54→15:57)
[2025-05-24] MEDS: NSS (PRESERVATIVE FREE) 10 ML IV (08:05)
[2025-05-24] MEDS: PROTONIX IV 40 MG IV (08:06)
[2025-05-24] MEDS: MIRALAX 17 GRAMS TUBE (08:06)
[2025-05-24] MEDS: LOW STRENGTH ASPIRIN 81 MG TUBE (08:06)
[2025-05-24] MEDS: ANCEF 5 IV (08:22)
[2025-05-24] MEDS: LANTUS 0.16 UNITS SC (08:29)
--- NOTE | 2025-05-24 08:31 | W.PN.ID1 ---
Date of Service
Date of Service: May 24, 2025
Today's Communication
Continue antibiotics. Transition to nafcillin.
Assessment / Plan
S. aureus sepsis / bacteremia
Fever
Lactic acidosis; improved
Leukocytosis; improved
Thrombocytopenia
EMILY on CKD
Exac CHF
Elevated AST and ALT
A-fib
CAD
Hx left breast CA
HTN
HLD
DM type II (uncontrolled; HbA1c = 9.9)
Valvular disease (AAS, MR)
Vertigo
Diverticulitis
Recommendations:
Creatinine stable today
Blood cultures with Staph aureus (MSSA).
MRI and echo reports reviewed.
Brain MRI suggestive of septic emboli.
L-spine MRI suggestive of discitis/osteomyelitis along with a paraspinal abscess
TTE suggestive of mitral valve disease
Discontinue further cefazolin (due to poor blood-brain barrier penetration).
Begin nafcillin 2 gm IV q.4 hours. LFTs noted already to be elevated; will need to follow very closely.
Repeat blood cultures from 05/21 no growth x 24 hours. Will repeat that today.
Lactic acidosis improved/resolved.
Follow white count and temperature curve.
Patient remains critically ill in intensive care unit on vent.
����������������������������������������������������������
Chief Complaint
-: Leukocytosis, Clinical Sepsis and Bacteremia
Subjective / Review of Systems
Review of Systems: No Fever
Vital Signs / Physical Exam
Vital Signs
Vital Signs
Temp Pulse Resp BP Pulse Ox
99.3 F 99 21 143/84 93
05/24/25 08:00 05/24/25 06:00 05/24/25 06:00 05/24/25 06:00 05/24/25 07:39
Physical Exam
Constitutional: Acutely Ill, Toxic and Obese
Head: Other (ET tube in place. Dobhoff in place.)
Eyes: No Conjunctival Hemorrhage and Sclera Anicteric
Cardiovascular: Irregular Rate (Tachycardic), S1/S2 and Murmur (II/); Negative S3/S4
Pulmonary: Coarse and Other (On vent); Negative Wheezes
Gastrointestinal: Soft and Non Tender
Genito-Urinary: Aguirre and Clear Urine
Extremities: Negative Edema, Cyanosis, Splinter Hemorrhage or [place]ay Lesions
Skin: Warm and Dry
Neurological: Other (Sedated)
Objective Data
Lab Data
Lab Results
05/24/25 03:11
05/24/25 03:11
PT 24.5 Sec (11.4-14.6) H 05/20/25 14:31
INR 2.15 05/20/25 14:31
APTT 43.1 Sec (23.4-35.0) H 05/20/25 14:31
Estimated Creat Clear 14 ml/min 05/24/25 03:11
Lactic Acid 1.5 mmol/L (0.7-2.0) 05/22/25 03:09
Total Bilirubin 2.8 mg/dl (0.2-1.3) H 05/24/25 03:11
AST 281 U/L (14-36) H 05/24/25 03:11
ALT 261 U/L (0-35) H 05/24/25 03:11
Alkaline Phosphatase 137 U/L (38-126) H 05/24/25 03:11
Most recent labs reviewed.
Micro Results:
05/21/25 15:30 Blood Culture - Preliminary
Blood/Venous No Growth in 48 hours- Final report to follow
05/23/25 10:00 Blood Culture - Pending
Blood/Venous
05/21/25 10:38 Respiratory Culture - Final
Sputum S aureus-Methicillin Sensitive
Gram Stain - Final
05/20/25 11:03 Blood Culture - Final
Blood/Venous S aureus-Methicillin Sensitive
Gram Stain - Final
05/20/25 11:03 Blood Culture - Final
Blood/Venous S aureus-Methicillin Sensitive
Gram Stain - Final
05/20/25 12:36 Blood Parasites Smear - Final
Blood/Venous
05/20/25 11:15 Influenza Types A & B (BARBIE) - Final
Nasal Swab Negative for Influenza A & B, NAAT
Negative results must be combined with clinical observations
and patient history.
Nucleic Acid Amplification test (NAAT)performed on the
[employer] platform.
Imaging:
05/23/2025 MRI brain: Innumerable scattered foci of restricted diffusion throughout the bilateral cerebral and cerebellar hemispheres, largest in the right centrum semiovale bowel periventricular region measuring up to 1.5 cm, compatible with
acute/subacute infarcts. No associated hemorrhage. There is associated hyperintense FLAIR signal suggesting these are not hyperacute.
05/23/2025 MRI L-spine: findings suggestive of discitis/osteomyelitis at L3-4. Adjacent left-sided psoas abscess noted.
05/22/2025 MRI C-spine, T-spine: no evidence of discitis/osteomyelitis in the cervical spine. Multilevel degenerative changes at C4-C5 with mild/moderate canal stenosis. Hyperintense signal enhancement along the superior endplate of L1 which
extends into the intravertebral disc which may represent early discitis/osteomyelitis. Please see full dictation for additional detail.
05/20/2025 Echo (TTE): patient is status post transcatheter aortic valve replacement. Prosthesis appears to be functioning normally. No evidence of aortic regurgitation. Peak aortic valve gradient is 8.8 mmHg. There is severe thickening of the
mitral valve anterior and posterior leaflets, with dense mitral annular calcification. Mild mitral valve stenosis. Mild mitral valve regurgitation.
05/18/2025 CT abdomen/pelvis without contrast: no acute pathology of the abdomen or pelvis identified. Tiny fat-containing umbilical hernia. Unenhanced liver, spleen and pancreas are unremarkable. Few small gallstones noted in the gallbladder. No
significant lymphadenopathy. Mild diverticulosis noted.
Care Review
Plan reviewed with: Physician (Critical Care, Nephrology, Neurology)
--- NOTE | 2025-05-24 08:35 | CON.NEURO ---
Neuro Assessment/Plan
Assessment
Acute change in mental status due to diffuse intracranial septic emboli demonstrated bihemispherically of various sizes and in all distributions.
Patient was not a candidate for either tenecteplase due to the high risk of conversion from ischemic injury to hemorrhagic change. Patient is not a candidate for intra-arterial thrombectomy due to absence of clot for removal. It is likely that the
patient's change in mental status is due to this bilateral intracranial injury.
Prognosis for meaningful neurological recovery is low based on the patient's metabolic challenges currently and diffuse injury which may lead to cerebellar edema and herniation
Plan
Avoid anticoagulation due to risk of conversion from ischemic to hemorrhagic lesions
Goal of care discussion suggestive of desire for hospice
Will follow as needed
Consultation
Order
Date of Consultation: 05/24/25
Requesting Provider: Hospitalists
Reason for Consult: Change in mental status
Subjective/Objective
Subjective Data
Date of Service: May 24, 2025
Patient recently presented to this [facility] emergency department with abdominal pain which began on May 16, 2025. She was evaluated and then discharged.
Patient returned to this [facility] emergency department on 05/20/2025 with newly developed fever after initially presenting on 05/17/2025 with lower abdominal pain and diarrhea. Subsequently, patient was found to have sepsis with staphylococcal
aureus, combined with bacteremia.
Due to patient not following requests during her hospitalization and having a decline in mental status, MRI of the brain was obtained and this consult was placed.
Objective Data
Vital Signs
Temp Pulse Resp BP Pulse Ox
37.4 C 99 21 143/84 93
05/24/25 08:00 05/24/25 06:00 05/24/25 06:00 05/24/25 06:00 05/24/25 07:39
Lab Results
05/24/25 03:11
05/24/25 03:11
PT 24.5 Sec (11.4-14.6) H 05/20/25 14:31
INR 2.15 05/20/25 14:31
APTT 43.1 Sec (23.4-35.0) H 05/20/25 14:31
Sodium 134 mmol/L (135-145) L 05/24/25 03:11
Potassium 4.3 mmol/L (3.5-5.1) 05/24/25 03:11
BUN 109 mg/dl (7-17) H* 05/24/25 03:11
Glucose 160 mg/dl (70-99) H 05/24/25 03:11
Calcium 7.8 mg/dl (8.4-10.2) L 05/24/25 03:11
Phosphorus 5.6 mg/dl (2.5-4.5) H 05/24/25 03:11
Get-L-Qloxmclgbjy Pept > 38757 pg/ml 05/20/25 11:40
Patient Allergies
adhesive (Adhesive) Allergy (Verified 05/17/25 23:01)
Rash
amiodarone Allergy (Verified 05/17/25 23:01)
Hives
bacitracin (From Neosporin (wzk-deu-ggtud)) Allergy (Verified 05/17/25 23:01)
Hives
bacitracin zinc (From Neosporin ([id number]-twq-cerqa)) Allergy (Verified 05/17/25 23:01)
Hives
Influenza Virus Vaccines (Influenza Virus Vaccine) Allergy (Verified 05/17/25 23:01)
Rash,SEVERE SHAKING
neomycin sulfate (From Neosporin ([id number]-qnc-adbte)) Allergy (Verified 05/17/25 23:01)
Hives
polymyxin B (From Neosporin (trp-hjz-akduc)) Allergy (Verified 05/17/25 23:01)
Hives
venom-honey bee (bee venom (honey bee)) Allergy (Verified 05/17/25 23:01)
Hives
CVA Assessment
Onset of Stroke Symptoms
Onset of symptoms known: No
Date of onset of symptoms: 05/23/25
Time pt last seen normal is known: No
Date last time pt seen normal: 05/22/25
NIH Stroke Score
Level of Consciousness: 2 - Obtunded
LOC Questions: 2-Neither correct
LOC Commands: 1-Performs one correctly
Best Horizontal Gaze: 0-Normal
Visual Gastelum: 0=Normal, no visual loss
Facial Palsy: 1=Minor paralysis (On the left)
Motor - Right Arm: 0=No drift 10 seconds
Motor - Left Arm: 4=No movement
Motor - Right Le-No drift 5 seconds
Motor - Left Le-No movement
Limb Ataxia: 0-Absent
Sensation: 0-Normal
Best Language: 0-No aphasia
Dysarthria: UN-Intubated, other
Extinction and Inattention: 0-No abnormality
NIH Total Score:: 14
Tenecteplase Contraindications
Inclusion and Exclusion criteria reviewed: Yes
Reasons for NON-Tx with Thrombolytics ABSOLUTE Exclusions: Time-out of window
IAT Contraindications: >6 hrs from onset/last seen normal
Review of Systems
-
Unable to obtain full review of systems at this time due to: Patient Intubation and Lethargy
History Source: Patient
All other systems: Reviewed and negative
Physical Exam
-
General: No Apparent Distress, Intubated and Appears Stated Age
Eyes: OU Absent Papilledema, Round OU and [place] Conjunctivae
HEENT: Anicteric and Moist Mucous Membranes
Neck: Full Range of Motion
Respiratory: No Dyspnea
Cardiac: No JVD
GI: Non-distended
Skin: Unremarkable
Extremities: No Clubbing, No Cyanosis and No Edema
Psych: Unable to Assess
Extended Neurological Exam
Mood & Affect: Unable to Assess
Attention Span & Concentration: Interactive, Closes Eyes after Stimulation (After approximately 3 seconds) and Other (Shook head no when asked if experiencing pain); Negative Awake or Alert
Memory: Unable to Assess
Tremor: Hand Tremor Absent and Head Tremor Absent
Involuntary Movement: None
Speech: Unable to Assess
Cranial Nerve II: Left Eye: Pupillary Reactivity Unremarkable, Pupillary Size Unremarkable and Unable to Assess Visual Gastelum
Cranial Nerve II: Right Eye: Pupillary Reactivity Unremarkable, Pupillary Size Unremarkable and Unable to Assess Visual Gastelum
Cranial Nerves III, IV, : Extraocular Movement: Unable to Assess (Ptosis)
Cranial Nerve V: Facial Sensation: Unable to Assess
Cranial Nerve VII: Facial Symmetry: Reduced (Minimally on the left)
Cranial Nerve VIII: Hearing: Unable to Assess
Cranial Nerves IX, X: Palate Movement: Unable to Assess
Cranial Nerve XI: Shoulder Shrug: Unable to Assess
Cranial Nerve XII: Tongue Protusion: Unable to Assess
Muscle Strength, Overall: Absent (Left side of body) and Spontaneously Moves (Right arm right leg)
Muscle Bulk & Tone: Bulk Unremarkable and Tone Unremarkable
Pronator Drift: Unable to Assess
Deep Tendon Reflexes: Trace Throughout
Cold Sensation: Unable to Assess
Vibration Sensation: Unable to Assess
Coordination: Unable to Assess
Babinski Sign: Absent Bilaterally
Gait & Station: Unable to Assess
Data Reviewed
-
MRI Head: Report Reviewed and Image Reviewed
Labs: Report Reviewed
Reviewed with: Physician and Nurse
Old Records: Summarized
Medications
-
Active Medications
Generic Name Dose Route Start Last Admin
Trade Name Freq PRN Reason Stop Dose Admin
Acetaminophen 650 mg 05/20/25 18:25 05/22/25 05:10
Acetaminophen (Oral Solution) 650 Mg/20.3 Ml Cup TUBE 06/17/25 18:24 650 mg
Q6HPRN PRN Administration
mild pain/LIND/temp> 100.4F
Aspirin 81 mg 05/21/25 08:00 05/24/25 08:06
Aspirin 81 Mg Chewable Tablet TUBE 06/18/25 07:59 81 mg
DAILY MARKEL Administration
Bisacodyl 10 mg 05/20/25 14:19
Bisacodyl 10 Mg Rectal Suppository RECTAL 06/17/25 14:18
[id number] PRN
constipation
Dextrose 12.5 grams 05/20/25 14:19
Dextrose 50% (0.5 Grams/Ml) 50 Ml Syringe IV 06/17/25 14:18
[id number] PRN
hypoglycemia
Protocol
Diltiazem HCl 10 mg 05/22/25 09:17 05/23/25 09:15
Diltiazem 25 Mg/5 Ml Vial IV 06/19/25 09:16 10 mg
Q6HPRN PRN Administration
HR >110
Fentanyl Citrate 50 mcg 05/20/25 16:31 05/21/25 17:18
Fentanyl (50 Mcg/Ml) 100 Mcg/2 Ml Ampul IV 06/03/25 16:30 50 mcg
[id number] PRN Administration
see protocol
Protocol
Glucagon 1 mg 05/20/25 14:19
Glucagon 1 Mg Vial IM 06/17/25 14:18
PRN PRN
hypoglycemia
Protocol
Heparin Sodium 5,000 units 05/21/25 04:00 05/24/25 03:05
Heparin 5,000 Units/Ml 1 Ml Vial SC 06/18/25 03:59 5,000 units
Q8H MARKEL Administration
Insulin Glargine 16 units/ 0.16 mls @ 0 mls/hr 05/21/25 08:00 05/24/25 08:29
Device SC 06/18/25 07:59 0.16 mls
DAILY MARKEL Administration
As Directed
Dexmedetomidine HCl 400 mcg in 100 mls @ 0 mls/hr 05/21/25 13:30 05/22/25 05:10
Precedex IV 100 mls
PER PROTOCOL MARKEL Administration
Protocol
Per Protocol
Cefazolin Sodium 1 gram in 5 mls @ 60 mls/hr 05/23/25 08:00 05/24/25 08:22
Ancef IV 5 mls
Q8H MARKEL Administration
Diltiazem HCl 125 mg in 125 mls @ 0 mls/hr 05/23/25 11:45 05/24/25 07:54
Cardizem IV 125 mls
PER PROTOCOL MARKEL Administration
Protocol
Per Protocol
Insulin Aspart 0 units 05/21/25 00:00 05/24/25 05:02
Insulin Aspart High Resistance 300 Units/3 Ml Pen.Injctr SC 06/18/25 00:00 2 units
Q6 MARKEL Administration
Protocol
Insulin Aspart 10 units 05/22/25 00:00 05/24/25 05:03
Insulin Aspart (Novolog) 100 Units/Ml 3 Ml Flexpen SC 06/19/25 00:00 Not Given
Q6 MARKEL
Letrozole 2.5 mg 05/21/25 08:00
Letrozole 2.5 Mg (Non-Form) Tablet PO 06/18/25 07:59
On Hold: 05/21/25 08:00 DAILY MARKEL
Metoprolol Tartrate 25 mg 05/23/25 18:00 05/24/25 05:02
Metoprolol 25 Mg Regular Release Tablet TUBE 06/20/25 17:59 25 mg
Q6 MARKEL Administration
Pantoprazole Sodium 40 mg 05/21/25 08:00 05/24/25 08:06
Pantoprazole Sodium 40 Mg/10 Ml Vial IV 06/18/25 07:59 40 mg
DAILY MARKEL Administration
Polyethylene Glycol 17 grams 05/20/25 14:19
Polyethylene Glycol Powder 17 Grams Packet PO 06/17/25 14:18
DAILYPRN PRN
constipation
Polyethylene Glycol 17 grams 05/21/25 08:00 05/24/25 08:06
Polyethylene Glycol Powder 17 Grams Packet TUBE 06/18/25 07:59 17 grams
DAILY MARKEL Administration
Senna/Docusate Sodium 1 tablet 05/20/25 14:19
Docusate W/Senna (Cecilia-Colace) Tablet PO 06/17/25 14:18
BIDPRN PRN
constipation
Sodium Chloride 0 flush 05/20/25 18:00
Sodium Chloride 0.9% (Flush) Syringe IV 06/17/25 17:59
PER PROTOCOL MARKEL
Sodium Chloride 10 ml 05/21/25 08:00 05/24/25 08:05
Sodium Chloride 0.9% (Preservative Free) 10 Ml Vial IV 06/18/25 07:59 10 ml
DAILY MARKEL Administration
Home Medications
�Medication �Instructions �Recorded
multivitamin with folic acid 400 1 tab PO DAILY Supplement 07/20/21
mcg tablet (Tab-A-Pamela)
letrozole 2.5 mg tablet 2.5 mg PO DAILY Cancer 12/24/22
coQ10 (ubiquinol) 200 mg capsule 200 mg PO QPM Supplement 04/09/23
borage seed oil 1,000 mg capsule 1,000 mg PO QPM Supplement ##0 05/21/23
ferrous sulfate 325 mg (65 mg 325 mg PO MOWEFR Supplement 05/21/23
iron) tablet
furosemide 40 mg tablet 40 mg PO DAILY Fluid 08/20/23
Retention/Swelling
aspirin 81 mg tablet,delayed 81 mg PO DAILY Blood Clot 05/20/25
release Prevention/Tx
diltiazem HCl 180 mg 180 mg PO BID Arrhythmia 05/20/25
capsule,extended release 24 hr
empagliflozin 25 mg tablet 12.5 mg PO DAILY Diabetes 05/20/25
(Jardiance)
insulin glargine U-300 conc 300 16 unit SC DAILY Diabetes 05/20/25
unit/mL (3 mL) subcutaneous pen
(Toujeo Max U-300 SoloStar)
insulin lispro 100 unit/mL 13 unit SC QPM Diabetes 05/20/25
subcutaneous pen
insulin lispro 100 unit/mL 14 unit SC DAILY Diabetes 05/20/25
subcutaneous pen
insulin lispro 100 unit/mL 19 unit SC DAILY@1200 Diabetes 05/20/25
subcutaneous pen
metoprolol succinate 100 mg 100 mg PO BID Heart Failure 05/20/25
tablet,extended release 24 hr
(Toprol XL)
potassium chloride 20 mEq 40 meq PO BID Electrolyte Repletion 05/20/25
tablet,extended release
red yeast rice 600 mg tablet 1,200 mg PO DAILY Supplement 05/20/25
repaglinide 1 mg tablet 3 mg PO AC Diabetes 05/20/25
Past History
Past History
ED Past Medical History: Arrthythmia (Atrial fibrillation), CAD, Cancer (Left breast cancer status post lumpectomy 2021), HTN, Hypercholesterolemia, NIDDM, Valvular disease (, MR) and Other (Vertigo, Diverticulitis, hemorrhoids, Aortic stenosis,
CKD 3B, iron deficiency anemia, colonic polyposis, GI bleed December 2022)
ED Past Surgical History: Cardiac (stent, TAVR 2018, cardioversions, Ablation, Watchman 2022), Gynecological (tubal, ), Orthopedic (Right foot surgery, ) and Other (Rectal fissure with sphincterotomy 1997)
Social History
Tobacco: Non-smoker
Alcohol: None
Drug: None
Personal:
Living: with family
Employment: Retired
Family History
Family History: Other (Reviewed and noncontributory)
[2025-05-24 08:39] LABS: Glucose - Point of Care 183 mg/dl (70-99)
--- NOTE | 2025-05-24 08:47 | W.PN.NEPH.PH ---
Today's Communication / Plan
-
Maintain pressor support to keep MAP at 65 or greater
Kidney function with only modest improvement but remains nonoliguric
No acute dialysis requirement
Will provide 20 mg of IV Lasix
Assessment/Plan
-
Impression:
EMILY
MSSA bacteremia with multiorgan failure
Vent dependent respiratory failure/suspected pneumonia
Atrial fibrillation with rapid ventricular response
History of CKD stage IV with baseline creatinine 2.4
Diabetes
Severe pulmonary hypertension
Transaminitis
History of TAVR in April 2019
Coronary artery disease with prior history of PCI
History of hypertension
History of ER+ breast cancer s/p L lumpectomy/XRT, on letrozole
MRI of head notes likely bilateral septic
Plan:
EMILY:
- Of note CT with IV contrast was obtained on 05/20/2025 possibly potentiating contrast nephropathy
-Likely strong prerenal stimulus in setting of sepsis as noted by hypotension 48 hours prior, now off pressors
-Will check fractional secretion of sodium: Consistent with prerenal stimuli
-Creatinine with modest improvement to 3.5 but nonoliguric with urine output of approximately 1200 cc
-Weights starting to increase, holding diuretics for now
- MRI results reviewed with infectious disease, noted likely septic emboli
-20mg IV times one, rising weights
-Antibiotics renally dosed nafcillin
-No acute requirement for dialysis yet
-Patient is critically ill with ongoing sepsis ,Vent dependent respiratory failure , and acute renal failure in setting of MSSA bacteremia
-32 minutes critical care time spent with the patient
Total Time Spent with Patient (in minutes): 32
-
-
Date of Service: May 24, 2025
CC / HPI / ROS
-
Chief Complaint:
EMILY
History of Present Illness:
Creatinine with modest improvement to 3.5 with BUN in excess of 100
Hemodynamically stable off pressor
Remains intubated but awake: FiO2 stable at 40
Review of Systems:
Intubated
Nonoliguric via Aguirre
Low-grade fever temperature
Labs
-
Labs:
WBC 14.6 10^3/uL (4.8-10.8) H 05/24/25 03:11
RBC 4.15 10^6/uL (4.20-5.40) L 05/24/25 03:11
Hgb 13.8 g/dL (12.0-16.0) 05/24/25 03:11
Hct 39.9 % (37.0-47.0) 05/24/25 03:11
Plt Count 74 10^3/uL (130-400) L 05/24/25 03:11
Sodium 134 mmol/L (135-145) L 05/24/25 03:11
Potassium 4.3 mmol/L (3.5-5.1) 05/24/25 03:11
Chloride 101 mmol/L (98-107) 05/24/25 03:11
Carbon Dioxide 25 mmol/L (22-30) 05/24/25 03:11
BUN 109 mg/dl (7-17) H* 05/24/25 03:11
Creatinine 3.5 mg/dL (0.6-1.0) H 05/24/25 03:11
eGFR 12.90 05/24/25 03:11
Glucose 160 mg/dl (70-99) H 05/24/25 03:11
Calcium 7.8 mg/dl (8.4-10.2) L 05/24/25 03:11
Phosphorus 5.6 mg/dl (2.5-4.5) H 05/24/25 03:11
Kbu-J-Beqjwetirbq Pept > 28539 pg/ml 05/20/25 11:40
Albumin 2.8 g/dl (3.5-5.0) L 05/24/25 03:11
Physical Exam
-
Vital Signs:
Vital Signs
Temp Pulse Resp BP Pulse Ox
99.3 F 99 21 143/84 93
05/24/25 08:00 05/24/25 06:00 05/24/25 06:00 05/24/25 06:00 05/24/25 07:39
Cardiovascular:: Regular rate and rhythm
Respiratory:: Bilateral: CTA
Lung Excursion:: Normal
Abdomen:: Nontender and Soft
Extremity Edema:: None: Bilateral: (trace)
Aguirre Catheter: No
Other Findings::
Intubated but awake
--- NOTE | 2025-05-24 09:12 | PTCARENOTE ---
Plan of care discussion with care team; Dr. Mcnamara, Dr. Parsons, Dr. Dickens & Dr. Bazan. Will start tube feeds per RD recommendations. Pt been on CPAP wean since 734 and thus far tolerating it. They are aware she is not moving her left upper
extremity and only wiggling her feet on the left side. She is able to lining feller her right upper and L/E's without difficulty. Also aware her weight is up 2kg's overnight.
[2025-05-24 09:50] LABS: B.E. 1.6 mmol/L; HCO3 24.6 mmol/L (21-28); O2 Saturation % 81.9 % (94-98); PCO2 33 mmHg (32-35)
[2025-05-24 09:59] LABS: PO2 51 mmHg (83-108)
--- NOTE | 2025-05-24 10:25 | PTCARENOTE ---
Discussed the plan of care regarding withdrawal of care and Hospice. They were informed that Hospice would be able to provide more indepth information, however until once we get official orders we will continue to administer ABX per their request
and Lasix.
--- NOTE | 2025-05-24 10:29 | W.PN.UPDATE ---
Update Note
Progress Note Update
Following discussion with family regarding the patient's poor prognosis, the family decided to proceed with hospice/comfort care. Patient's wishes were acknowledged including wishes for no tube feedings. Patient to be terminally extubated and placed
on comfort care measures. In-patient hospice made aware.
[2025-05-24] MEDS: NAFCIL 108 MG IV (10:30)
[2025-05-24] MEDS: LASIX 20 MG IV (10:34)
--- NOTE | 2025-05-24 10:55 | PTCARENOTE ---
Pt's family (, [id number], [id number], 2 daughters and 1 son-in law) present for goals of care discussion. Care team notified. Famioly support provided and informed of the plan of care regarding diuresis, and the change in antibiotics.
They verbalized their understanding. Pt's living will was copied for the chart.
[2025-05-24] MEDS: ROBINUL 0.2 MG IV ×3 (11:27→20:42)
[2025-05-24] MEDS: ZOFRAN 4 MG IV (11:27)
[2025-05-24] MEDS: TYLENOL ORAL SOLUTION 650 MG TUBE (11:28)
[2025-05-24 12:03] LABS: Glucose - Point of Care 226 mg/dl (70-99)
--- NOTE | 2025-05-24 12:05 | HOSPNOTE ---
Addendum entered by Dolores Chaudhari RN 05/24/25 14:24:
Hospice nurse met with family in person. All are in agreement with comfort measures and extubation. If patient survives to tomorrow, will evaluate for inpatient hospice. CM, Attending and Primary RN are updated and in agreement. Hospice will
continue to follow and support.
Addendum entered by Dolores Chaudhari RN 05/24/25 12:07:
CM and Resident are aware/updated.
Original Note:
Hospice referral received. Spoke to . He requested to speak to hospice in person. Hospice nurse will come and complete intro to hospice. Recommend to remain comfort and extubate patient. IF patient survives to morning then can evaluate for
inpatient hospice. Hospice will continue to follow. More information to follow after in person introduction.
--- NOTE | 2025-05-24 12:07 | CM ---
CM reviewed chart, reviewed with Resident, referral received for Hospice. Referral placed to Hospice. CM reviewed with drilling contractor nutrition aides teacher, Dolores. Patient on comfort care, will evaluate for inpatient hospice tomorrow. CM will continue to follow
for all discharge planning needs.
Plan; comfort care, referral placed to Hospice
--- NOTE | 2025-05-24 12:58 | PTCARENOTE ---
TT Hospice comparison shopper TAYLOR Bernal regarding family request to speak with Hospice nurse prior to initiating comfort measures. Process Safety Specialist and other 2 family members have arrived and performing spiritual care.
[2025-05-24] MEDS: MORPHINE SULFATE 2 MG IV ×5 (14:20→20:41)
[2025-05-24] MEDS: VALIUM INJECTION 2 MG IV (14:20)
--- NOTE | 2025-05-24 14:45 | PTCARENOTE ---
Terminally extubated @ 1425 to RA. Premedicated with Valium & Morphine. I had already administered Robinul & Zofran @ 1127. Cardizem @ 15mg/hr. Clarifying order with Dr. Reeder.
--- NOTE | 2025-05-24 14:53 | HOSPNOTE ---
Visit completed alongside SOPHIE Wilson. Patient assessed laying in bed, fully unresponsive barring hand movements. Intubated at this time. Hospice intro completed with patient's family. All questions and concerns addressed at this time. Family
comfortable with patient remaining on comfort measures after extubation, then if patient is still with us tomorrow admission onto hospice services. No further questions or concerns, much emotional support provided.
[2025-05-24] MEDS: CARDIZEM 10 MG IV (15:59)
--- NOTE | 2025-05-24 16:20 | PTCARENOTE ---
Cardizem drip continued. S/P bolus for HR>110. Family provided supportive care. They had their Brewery Pumper come for prayer, prayer blanket was provided. Family retained 5 yellow metal rings some with clear white stones, and multi colored stones and
others just plain yellow metal from the pt's fingers.
[2025-05-24] MEDS: MORPHINE 100 IV (17:28)
[2025-05-25] MEDS: CARDIZEM 125 IV ×2 (00:17→08:20)
[2025-05-25] MEDS: ROBINUL 0.2 MG IV ×2 (02:10→08:21)
[2025-05-25] MEDS: MORPHINE SULFATE 2 MG IV (02:10)
[2025-05-25 06:00] VITALS: BMI 39.7
[2025-05-25 06:04] VITALS: BP 127/65
--- NOTE | 2025-05-25 07:32 | W.PN.HOSP.TC ---
Addendum entered and electronically signed by Sergio Pisano DO 05/25/25 13:43:
CDI: Acute HFpEF, diastolic
Original Note:
Today's Communication/Plan
-
Patient to be seen by inpatient hospice team today
May be discharged to inpatient hospice following their conversation
Assessment / Plan
Assessment / Plan
Assessment:
75-year-old female with a past medical history of paroxysmal A-fib post Watchman procedure, aortic stenosis, mitral stenosis, coronary artery disease post PCI and congestive heart failure with preserved ejection fraction presented to the emergency
room due to progressive weakness over the past few days. She had been in the emergency room here few days ago and was evaluated for lower abdominal pain. CT scan at that time was unremarkable and patient was discharged home. As per the patient's
, patient had been increasingly getting weaker at home and even had trouble getting up. He noticed fever as well as some difficulty breathing alongside vomiting and nausea. Decided to call EMS to go back to the hospital. In the ED she was
found to have elevated lactate, and metabolic acidosis with anion gap. She also had rapid ventricular rate and was given a dose of digoxin and started on Cardizem infusion. Due to the severe sepsis, septic shock, patient was admitted to the ICU.
While in the ICU, she had persistent tachycardia and low respiratory rate. Because of the increased work of breathing, tachypnea, lethargy and restlessness, patient was intubated. Patient's cultures grew MSSA, and was found to have innumerable
septic emboli in her brain on MRI. Also was seen to have discitis on the back MRI. Following goals of care discussion yesterday, all medical interventions were stopped and patient was placed on comfort measures.
Plan:
#Septic Shock from Discitis
- 1.5 ltr fluid bolus in ED, given pulmonary congestion. Lactate normalized
- MRI showed innumerable scattered nonhemorrhagic acute and subacute infarcts
- Bcx grew Staph aureus, likely from discitis
- Patient terminally extubated yesterday, all medical interventions were stopped following conversation with patient's family, placed on comfort measures
#Acute hypoxic respiratory failure secondary to septic shock
- Patient terminally extubated yesterday, still breathing on around right now.
#Cardioembolic stroke
- As seen on MRI Head: innumerable scattered nonhemorrhagic acute and subacute infarcts bihemispheric and by cerebellar, suggestive of embolus
- mental status changes most likely due to these emboli
- all medical interventions were stopped and patient was placed on comfort measures
# Metabolic acidosis, elevated lactate
- Suspected related to underlying severe sepsis
- Improved with bicarb drip
- all medical interventions were stopped and patient was placed on comfort measures
# EMILY on CKD3B
- all medical interventions were stopped and patient was placed on comfort measures
#Suspect systolic acute HFpEF exacerbation:
- BNP elevated at 27,000 on admission
- EF was 60%
- all medical interventions were stopped and patient was placed on comfort measures
# SVT/Atrial Fibrillation with RVR
- Continuing Cardizem drip for comfort
#Non-ischemic cardiomyopathy
- 2/2 septic shock
- Troponin peaked at 0.783
# HFrEF
- X-ray suggestive of developing pulmonary congestion
- S/p 1.5 L in the emergency room
- all medical interventions were stopped and patient was placed on comfort measures
Electrolyte abnormality:
Hypokalemia, hypocalcemia, hyperkalemia
- all medical interventions were stopped and patient was placed on comfort measures
#Thrombocytopenia:
2/2 to septic shock or medication adverse effect (on Meropenem)
- all medical interventions were stopped and patient was placed on comfort measures
# IDDM
- Hold Jardiance and repaglinide
- all medical interventions were stopped and patient was placed on comfort measures
# Transaminitis
- 2/2 septic shock
- all medical interventions were stopped and patient was placed on comfort measures
# H/o CAD, s/p PCI (2016)
- Stable. Elevated troponin from non-ischemic myocardial injury 2/2 septic shock
- all medical interventions were stopped and patient was placed on comfort measures
# History of breast cancer status post lumpectomy and radiation therapy
- all medical interventions were stopped and patient was placed on comfort measures
DVT Prophylaxis: Heparin
Code: DNR, on comfort measures
Anticipated Discharge: Within 24 hours
Subjective/Interval History
-
Date of Service: May 25, 2025
Patient seen comfortable this morning. Very sedated and unarousable. Still breathing on her own and on comfort measures.
Objective Data
-
Vital Signs:
Vital Signs
Temp Pulse Resp BP Pulse Ox
99 F 112 9 127/65 78
05/24/25 20:32 05/25/25 06:04 05/25/25 06:04 05/25/25 06:04 05/25/25 06:04
I&O
05/24/25 05/25/25 05/26/25
06:59 06:59 06:59
Intake Total 515 / 540 759 / 759
Output Total 1265 / 1335 1305 / 1305
Balance -750 / -795 -546 / -546
Review of Systems
-
Unable to obtain full review of systems at this time due to: Other (Heavily sedated)
All other systems: Not reviewed unless documented
Physical Exam
-
General: Other (Heavily sedated)
HEENT: Normocephalic and Atraumatic
Respiratory: Crackles and Decreased Breath Sounds
Cardiac: Tachycardic
Neuro: Sedated
[2025-05-25] MEDS: PROTONIX IV 40 MG IV (07:54)
[2025-05-25] MEDS: NSS (PRESERVATIVE FREE) 10 ML IV (07:54)
--- NOTE | 2025-05-25 08:16 | PTCARENOTE ---
pt nodded head no to pain. very lethargic. repositioned in bed. moore care done. cardizem and morphine gtt running as ordered.
--- NOTE | 2025-05-25 09:19 | W.PN.ID1 ---
Date of Service
Date of Service: May 25, 2025
Today's Communication
Sign off
Assessment / Plan
S. aureus sepsis / bacteremia
Fever
Lactic acidosis; improved
Leukocytosis; improved
Thrombocytopenia
EMILY on CKD
Exac CHF
Elevated AST and ALT
A-fib
CAD
Hx left breast CA
HTN
HLD
DM type II (uncontrolled; HbA1c = 9.9)
Valvular disease (AAS, MR)
Vertigo
Diverticulitis
Recommendations:
Chart reviewed. Patient has been transitioned to hospice following terminal extubation.
Antibiotics discontinued.
Nothing further to add from a Infectious Diseases standpoint.
Will see again at your request.
����������������������������������������������������������
Chief Complaint
-: Leukocytosis, Clinical Sepsis and Bacteremia
Vital Signs / Physical Exam
Vital Signs
Vital Signs
Temp Pulse Resp BP Pulse Ox
99 F 112 9 127/65 81
05/24/25 20:32 05/25/25 06:04 05/25/25 06:04 05/25/25 06:04 05/25/25 07:58
Physical Exam
Constitutional: Comfortable and Chronically Ill
Pulmonary: Non Labored
Objective Data
Lab Data
Lab Results
05/24/25 03:11
05/24/25 03:11
PT 24.5 Sec (11.4-14.6) H 05/20/25 14:31
INR 2.15 05/20/25 14:31
APTT 43.1 Sec (23.4-35.0) H 05/20/25 14:31
Estimated Creat Clear 14 ml/min 05/24/25 03:11
Lactic Acid 1.5 mmol/L (0.7-2.0) 05/22/25 03:09
Total Bilirubin 2.8 mg/dl (0.2-1.3) H 05/24/25 03:11
AST 281 U/L (14-36) H 05/24/25 03:11
ALT 261 U/L (0-35) H 05/24/25 03:11
Alkaline Phosphatase 137 U/L (38-126) H 05/24/25 03:11
Most recent labs reviewed.
Micro Results:
05/21/25 15:30 Blood Culture - Preliminary
Blood/Venous Positive culture in progress
Gram Stain - Preliminary
05/23/25 10:00 Blood Culture - Preliminary
Blood/Venous No Growth in 24 hours- Final report to follow
05/21/25 10:38 Respiratory Culture - Final
Sputum S aureus-Methicillin Sensitive
Gram Stain - Final
05/20/25 11:03 Blood Culture - Final
Blood/Venous S aureus-Methicillin Sensitive
Gram Stain - Final
05/20/25 11:03 Blood Culture - Final
Blood/Venous S aureus-Methicillin Sensitive
Gram Stain - Final
05/20/25 12:36 Blood Parasites Smear - Final
Blood/Venous
05/20/25 11:15 Influenza Types A & B (BARBIE) - Final
Nasal Swab Negative for Influenza A & B, NAAT
Negative results must be combined with clinical observations
and patient history.
Nucleic Acid Amplification test (NAAT)performed on the
[employer] platform.
Imaging:
05/23/2025 MRI brain: Innumerable scattered foci of restricted diffusion throughout the bilateral cerebral and cerebellar hemispheres, largest in the right centrum semiovale bowel periventricular region measuring up to 1.5 cm, compatible with
acute/subacute infarcts. No associated hemorrhage. There is associated hyperintense FLAIR signal suggesting these are not hyperacute.
05/23/2025 MRI L-spine: findings suggestive of discitis/osteomyelitis at L3-4. Adjacent left-sided psoas abscess noted.
05/22/2025 MRI C-spine, T-spine: no evidence of discitis/osteomyelitis in the cervical spine. Multilevel degenerative changes at C4-C5 with mild/moderate canal stenosis. Hyperintense signal enhancement along the superior endplate of L1 which
extends into the intravertebral disc which may represent early discitis/osteomyelitis. Please see full dictation for additional detail.
05/20/2025 Echo (TTE): patient is status post transcatheter aortic valve replacement. Prosthesis appears to be functioning normally. No evidence of aortic regurgitation. Peak aortic valve gradient is 8.8 mmHg. There is severe thickening of the
mitral valve anterior and posterior leaflets, with dense mitral annular calcification. Mild mitral valve stenosis. Mild mitral valve regurgitation.
05/18/2025 CT abdomen/pelvis without contrast: no acute pathology of the abdomen or pelvis identified. Tiny fat-containing umbilical hernia. Unenhanced liver, spleen and pancreas are unremarkable. Few small gallstones noted in the gallbladder. No
significant lymphadenopathy. Mild diverticulosis noted.
--- NOTE | 2025-05-25 10:00 | PN.CDI ---
CDI
- -
CDI:
Physician Documentation Request
Admit Date: 05/20/25 13:19
Dear Doctor,
Please review the following and provide your response in the progress notes.
Clinical Indicators:
Pt admitted with septic shock.
05/20 ECHO: 1. Small left ventricle with mild to moderate left ventricular hypertrophy and septal straightening related to RV pressure overload. The ejection fraction is 60%.
2. Mild mitral stenosis with leaflet calcification and dense mitral annular calcification. Mean mitral valve gradient is 5 mmHg. There is mild mitral regurgitation and left atrial dilatation.
3. Transcatheter aortic valve with peak and mean gradients of 9 and 5 mmHg. No aortic regurgitation.
4. Dilated and hypokinetic right ventricle with dilated right atrium, severe tricuspid regurgitation, and severe pulmonary artery systolic pressure, 90 mmHg systolic.
05/24 Cardiology: ' ...Acute on chronic HFpEF..'
05/24 Progress Note: ' #Suspect acute HFpEF exacerbation:- ProBNP 27,000 on admission....# HFrEF
- X-ray suggestive of developing pulmonary congestion..'
Please clarify specificity regarding the most likely type of CHF you are evaluating, treating or monitoring.
TYPE:
Diastolic
Systolic
Other
Use of terms such as suspected, likely, concern for, or probable (associated with a specific diagnosis that is being evaluated, monitored, or treated as if it exists) are acceptable and can be coded in the inpatient setting, when documented at the
time of discharge.
Thank you,
Tamra Unger RN, BSN
CDI Specialist
[place] [facility]
Please use your independent medical judgment in providing your response.
--- NOTE | 2025-05-25 10:23 | HOSPNOTE ---
This patient will be admitted inpatient hospice today. Spouse is in agreement with hospice and will be in to sign consent forms. Admissions, CM and Attending aware of plan.
--- NOTE | 2025-05-25 11:17 | PTCARENOTE ---
pt having pauses in hr. HR now 42 cadizem turned off. left message with pt of change in pt status
--- NOTE | 2025-05-25 12:25 | HOSPNOTE ---
11:50AM - Pt was to be admitted to inpatient hospice GIP level of care. Family due to arrive at noon to sign consent. Prior to family's arrival patient's HR dropped to the 20's and 30's with long pauses. Family was called to bedside by primary
nurse. Consents had not been signed and as is imminent she is to remain on comfort care and not be admitted to Hospice. TT with Dr Pisano and Dr. Reeder with the update. Will send message to Bereavement team to reach out at an appropriate
time.
--- NOTE | 2025-05-25 13:15 | W.DCSUMMARY ---
Documented by User: Raghav Reeder MD, Resident 05/25/25 13:16
Discharge Summary
Discharge Data
Date of Admission: 05/20/25
Date of Discharge: 05/25/25
-
Pending Results: No
Hospital Course
Discharging Physician : Dr. Sergio Pisano, Dr. Raghav Reeder
Disposition :
Primary care physician : Katie Iyer
Principal Discharge diagnosis : Acute Hypoxic Respiratory Failure r/t Septic Shock
Chronic Discharge diagnosis :
CKD3B
HFpEF
Breast Cancer Hx
Hypertension
Type 2 Diabetes (Insulin Dependent)
Paroxysmal A-Fib
Coronary Artery Disease
Hospital Course :
75-year-old female with a past medical history of paroxysmal A-fib post Watchman procedure, aortic stenosis, mitral stenosis, coronary artery disease post PCI and congestive heart failure with preserved ejection fraction presented to the emergency
room due to progressive weakness over the past few days. In the ED she was found to have elevated lactate, and metabolic acidosis with anion gap. She also had rapid ventricular rate and was given a dose of digoxin and started on Cardizem infusion.
Due to the severe sepsis, septic shock, patient was admitted to the ICU. While in the ICU, she had persistent tachycardia and low respiratory rate. Because of the increased work of breathing, tachypnea, lethargy and restlessness, patient was
intubated. Patient's cultures grew MSSA, and was found to have innumerable septic emboli in her brain on MRI. Also was seen to have discitis on the back MRI. Following goals of care discussion, all medical interventions were stopped and patient
was placed on comfort measures, terminally extubated. Patient peacefully with family at bedside at 05/25/2025 12:58pm.
Important imaging findings :
Brain MRI: Innumerable scattered nonhemorrhagic acute/subacute infarcts throughout the bilateral cerebral and cerebellar hemispheres. Findings may be of embolic etiology
Lumbar MRI: Findings in keeping with discitis-osteomyelitis at L3-4. Adjacent left-sided psoas abscess.
Thoracic MRI: There is STIR hyperintense signal and enhancement along the superior endplate of L1 which extends into the intervertebral disc which may represent early discitis/osteomyelitis in the setting of bacteremia.
CT Abd/Pel: Confluent parenchymal opacity within the inferior aspect of the left lower lobe of the lung, new since CT of May 18, 2025, morphologic appearance most suggestive of pneumonia. Confluent atelectasis is a differential consideration.
Procedure findings :
Echocardiogram:
1. Small left ventricle with mild to moderate left ventricular hypertrophy and septal straightening related to RV pressure overload. The ejection fraction is 60%.
2. Mild mitral stenosis with leaflet calcification and dense mitral annular calcification. Mean mitral valve gradient is 5 mmHg. There is mild mitral regurgitation and left atrial dilatation.
3. Transcatheter aortic valve with peak and mean gradients of 9 and 5 mmHg. No aortic regurgitation.
4. Dilated and hypokinetic right ventricle with dilated right atrium, severe tricuspid regurgitation, and severe pulmonary artery systolic pressure, 90 mmHg systolic.
5. In August 2024 there was mild LVH with an ejection fraction of 55 to 60%. Peak and mean mitral valve gradients were 20 and 7.3 mmHg. No mitral regurgitation was seen. The left atrium was normal. Peak and mean aortic valve gradients across the
transcatheter aortic valve were 35 and 18 of mercury. The pulmonary artery systolic pressure was 74 mmHg. The RV was dilated and hypokinetic.
Discharge Plan
-
Patient Disposition:
Date/Time
Date/Time: 05/25/25 12:58
Discharge Date and Time
Discharge Date/Time: 05/25/25 12:58
Print Language: INDONESIAN

Documented by User: Sergio Pisano DO 05/26/25 14:22
Discharge Summary
Discharge Data
Date of Admission: 05/20/25
Date of Discharge: 05/26/25
Discharge Plan
-
Patient Disposition:
Date/Time
Date/Time: 05/25/25 12:58
Discharge Date and Time
Discharge Date/Time: 05/25/25 12:58
Print Language: INDONESIAN
--- NOTE | 2025-05-25 13:28 | W.PN.DEATH ---
Pronouncement of
-
Called to see patient to pronounce.
No spontaneous heart tones or respirations noted.
Patient not responsive to verbal stimuli.
Patient is pronounced .
Time of : 12:58
Date of : 05/25/25
Cause of : Acute Hypoxic Respiratory Failure r/t Septic Shock
Family Notified: Yes
--- NOTE | 2025-05-25 15:14 | PTCARENOTE ---
pt 1258 with family at bedside. post mortem care done.
--- NOTE | 2025-05-25 15:24 | CM ---
Patient on this date, 05/25/25.
== END 2025-05-25 12:58 | disposition expired | DRG 871 ==
LOC: ICU 13:19
PROVIDERS: Hospitalist; Internal Medicine; Nurse Practitioner Family; Nurse Practitioner Primary Care; Physician Assistant; Student in an Organized Health Care Education/Training Program; ADMITTING PHYSICIAN Student in an Organized Health Care Education/Training Program; ATTENDING PHYSICIAN Internal Medicine; CONSULT PHYSICIAN Internal Medicine; CONSULT PHYSICIAN Internal Medicine Cardiovascular Disease; CONSULT PHYSICIAN Internal Medicine Infectious Disease; CONSULT PHYSICIAN Specialist; EMERGENCY PHYSICIAN Emergency Medicine; FAMILY PHYSICIAN Family Medicine; OTHER PHYSICIAN Psychiatry & Neurology Neurology
PROC: 0CHY7BZ Insertion of Airway into Mouth and Throat, Via Natural or Artificial Opening (ICD-10-PCS; 2025-05-20)
PROC: B543ZZA Ultrasonography of Right Jugular Veins, Guidance (ICD-10-PCS; 2025-05-20)
PROC: 05HM33Z Insertion of Infusion Device into Right Internal Jugular Vein, Percutaneous Approach (ICD-10-PCS; 2025-05-20)
PROC: 5A1945Z Respiratory Ventilation, 24-96 Consecutive Hours (ICD-10-PCS; 2025-05-21)
DX: A41.01 Sepsis due to Methicillin susceptible Staphylococcus aureus (principal); G93.41 Metabolic encephalopathy; J96.01 Acute respiratory failure with hypoxia; R65.21 Severe sepsis with septic shock; I50.43 Acute on chronic combined systolic (congestive) and diastolic (congestive) heart failure; K68.12 Psoas muscle abscess; I63.40 Cerebral infarction due to embolism of unspecified cerebral artery; I13.0 Hypertensive heart and chronic kidney disease with heart failure and stage 1 through stage 4 chronic kidney disease, or unspecified chronic kidney disease; N18.4 Chronic kidney disease, stage 4 (severe); E87.20 Acidosis, unspecified; M46.26 Osteomyelitis of vertebra, lumbar region; I76 Septic arterial embolism; I47.10 Supraventricular tachycardia, unspecified; I48.92 Unspecified atrial flutter; I42.8 Other cardiomyopathies; E87.1 Hypo-osmolality and hyponatremia; N17.9 Acute kidney failure, unspecified; Z99.11 Dependence on respirator [ventilator] status; Z85.3 Personal history of malignant neoplasm of breast; E11.22 Type 2 diabetes mellitus with diabetic chronic kidney disease; I48.0 Paroxysmal atrial fibrillation; I25.10 Atherosclerotic heart disease of native coronary artery without angina pectoris; Z79.4 Long term (current) use of insulin; M46.46 Discitis, unspecified, lumbar region; E11.69 Type 2 diabetes mellitus with other specified complication; Z66 Do not resuscitate; Z95.2 Presence of prosthetic heart valve; I08.0 Rheumatic disorders of both mitral and aortic valves; E87.6 Hypokalemia; E87.5 Hyperkalemia; E83.51 Hypocalcemia; Z92.3 Personal history of irradiation; E66.9 Obesity, unspecified; D64.9 Anemia, unspecified; Z95.5 Presence of coronary angioplasty implant and graft; Z88.7 Allergy status to serum and vaccine; Z79.82 Long term (current) use of aspirin; Z79.84 Long term (current) use of oral hypoglycemic drugs; E78.00 Pure hypercholesterolemia, unspecified; I27.20 Pulmonary hypertension, unspecified; Z79.899 Other long term (current) drug therapy; Z86.0109 Personal history of other colon polyps; Z88.1 Allergy status to other antibiotic agents
CPT/HCPCS: 36600; 70553; 71045; 72156; 72157; 72158; 74018; 74176; 74177; 80053; 80162; 80202; 81003; 81015; 81099; 82533; 82570; 82805; 82962; 83036; 83605; 83690; 83735; 83880; 84100; 84300; 84478; 84484; 85025; 85027; 85610; 85730; 86618; 86803; 87015; 87040; 87070; 87147; 87154; 87186; 87205; 87207; 87468; 87484; 87502; 87798; 87811; 93005; 93306; 94002; 94003; 94760; 96361; 96365; 96366; 96375; 99285; A9575; J1160; J2997; Q9967